=== PATIENT | female | born 1950 | race Caucasian/White ===

== ENCOUNTER 2020-08-16 13:18 | Outpatient (REF) | payer MEDICARE, SELFPAY | END 2020-08-16 13:19 | disposition home or self-care (01) | LOC: HO.LAB 13:18 | PROVIDERS: Visit Provider Internal Medicine | DX: Z20.828 Contact with and (suspected) exposure to other viral communicable diseases (principal) | CPT/HCPCS: 87635 ==

== ENCOUNTER 2021-01-21 08:36 | Outpatient (REF) | payer MEDICARE, SELFPAY ==
[2021-01-21 11:28] LABS: Hematocrit 39.1 % (37-47); Mean Corpuscular HGB Conc 33.2 g/dl (31.0-35.0); Mean Corpuscular Hemoglobin 30.3 pg (27.0-33.0); Mean Corpuscular Volume 91.1 fL (80-98); Mean Platelet Volume 10.2 fL (9.4-12.3); Platelet Count 200 X10*3/uL (160-400); Red Blood Count 4.29 X10*6/uL (4.20-5.50); White Blood Count 2.7 X10*3/uL (4.8-10.8)
[2021-01-21 11:50] LABS: Glucose Urine UA NEG (NEG); Leukocyte Esterase Urine NEG (NEG); Nitrite Urine NEG (NEG); Urine Blood NEG (NEG); Urine Ketones NEG (NEG); Urine Protein NEG (NEG-TRACE)
[2021-01-21 11:52] LABS: Appearance Urine CLEAR; Color Urine YELLOW
[2021-01-21 12:11] LABS: RBC Urine 0 /HPF (0); Squamous Epithelial Cell Urine 1+ /LPF; WBC Urine 0-2 /HPF (0-4)
[2021-01-21 12:37] LABS: Alanine Aminotransferase 16 U/L (0-31); Albumin Level 4.5 g/dL (3.5-5.0); Alkaline Phosphatase 71 U/L (39-117); Anion Gap 17 (12-20); Aspartate Amino Transferase 19 U/L (5-31); Bilirubin Total 0.6 mg/dL (0.0-1.0); Blood Urea Nitrogen 8 mg/dL (9-16); Calcium 8.7 mg/dL (8.4-10.2); Carbon Dioxide 24 mmol/L (22-29); Chloride 104 mmol/L (96-108); Cholesterol 178 mg/dL; Estimated Glomerular Filt Rate > 60; Glucose Fasting 100 mg/dL (60-99); HDL Cholesterol 76 mg/dL; LDL Cholesterol Calculated 80 mg/dl; Potassium 3.5 mmol/L (3.3-5.1); Sodium 141 mmol/L (135-145); Triglycerides 111 mg/dL
== END 2021-01-21 08:37 | disposition home or self-care (01) ==
LOC: HO.HMGCLDS 08:36
PROVIDERS: PCP Internal Medicine; Visit Provider Internal Medicine
DX: I10 Essential (primary) hypertension (principal); E78.5 Hyperlipidemia, unspecified
CPT/HCPCS: 36415; 80053; 80061; 81001; 84443; 85027

== ENCOUNTER 2021-07-29 09:38 | Outpatient (REF) | payer MEDICARE, SELFPAY ==
[2021-07-29 11:52] LABS: MANUAL DIFF FLAG NO
[2021-07-29 12:00] LABS: Eosinophils Absolute Auto 0.3 X10*3/uL (0.0-0.4); Eosinophils Percent Auto 6.4 % (0-4); Hematocrit 39.3 % (37-47); Hemoglobin 13.1 g/dl (12.0-16.0); Imm Gran Abs Auto 0.01 X10*3/uL (0.00-0.03); Imm Gran Pct Auto 0.3 % (0.0-0.4); Lymphocytes Absolute Auto 1.2 X10*3/uL (1.2-4.9); Lymphocytes Percent Auto 31.5 % (20-40); Mean Corpuscular HGB Conc 33.3 g/dl (31.0-35.0); Mean Corpuscular Hemoglobin 29.9 pg (27.0-33.0); Mean Corpuscular Volume 89.7 fL (80-98); Mean Platelet Volume 9.8 fL (9.4-12.3); Monocytes Absolute Auto 0.4 X10*3/uL (0.1-1.2); Monocytes Percent Auto 11.3 % (2-11); Neutrophils Absolute Auto 1.9 X10*3/uL (2.0-8.3); Neutrophils Percent Auto 49.5 % (45-73); Platelet Count 262 X10*3/uL (160-400); Red Blood Count 4.38 X10*6/uL (4.20-5.50); Red Cell Distribution Width 12.5 % (11.0-16.0); White Blood Count 3.9 X10*3/uL (4.8-10.8)
== END 2021-07-29 09:39 | disposition home or self-care (01) ==
LOC: HO.HMGCLDS 09:38
PROVIDERS: PCP Internal Medicine; Visit Provider Internal Medicine
DX: E78.5 Hyperlipidemia, unspecified (principal); I10 Essential (primary) hypertension; D70.9 Neutropenia, unspecified
CPT/HCPCS: 36415; 85025

== ENCOUNTER 2022-01-09 08:37 | Outpatient (REF) | payer MEDICARE, SELFPAY ==
--- NOTE | ~2022-01-09 | MM_ITS ---
EXAMINATION: BONE DENSITOMETRY CLINICAL INDICATION: Asymptomatic menopausal state. COMPARISON: Previous BD dated 05/31/2012 and baseline BD dated 06/24/2009. TECHNIQUE: Using a [employer] DXA System (software version: 13.1) manufactured by [employer], dual-energy x-ray absorptiometry was performed of the lumbar spine and left hip. The images are of good technical quality. Summary results are attached. FINDINGS: AP SPINE L1-L4: Current: BMD 0.962 g/cm2, Z-score -0.2, T-score -1.8, osteopenia, 11.5% decrease from previous, 11.4% decrease from baseline (<5% change is not significant). Prior: BMD 1.087 g/cm2. Baseline: BMD 1.086 g/cm2. LEFT FEMUR, NECK: Current: BMD 0.870 g/cm2, Z-score 0.6, T-score -1.2, osteopenia. Prior: BMD 1.000 g/cm2. Baseline: BMD 1.097 g/cm2. LEFT FEMUR, TOTAL: Current: BMD 0.926 g/cm2, Z-score 0.9, T-score -0.7, normal, 9.9% decrease from previous, 14.3% decrease from baseline (<5% change is not significant). Prior: BMD 1.028 g/cm2. Baseline: BMD 1.081 g/cm2. IDENTIFIED RISK FACTORS: Height loss. Secondary osteoporosis (early menopause). Hysterectomy. Bilateral oophorectomy. HISTORY OF FRACTURE: None listed. MEDICATIONS: Calcium supplement and/or multivitamin. Vitamin D. MM/XR DEXA axial skeleton IMPRESSION: 1. DIAGNOSIS: Osteopenia based on the lowest T-score value of -1.8 in the lumbar spine applying World Health Organization criteria. 2. 10-YEAR FRACTURE RISK PREDICTION, FRAX: Major osteoporotic fracture (clinical spine, forearm, hip or shoulder) 10.1%. Hip fracture 1.5%. 3. Treatment Recommendations: NOF guidelines recommend consideration for treatment in postmenopausal women and men age 50 and older presenting with the following: -A hip or vertebral (clinical or morphometric) fracture. -T-score less than or equal to -2.5 at the femoral neck or spine after appropriate evaluation to exclude secondary causes. -Low bone mass at the hip or spine and a 10-year fracture probability by FRAX of greater than or equal to 3% for hip fracture or greater than or equal to 20% for major osteoporotic fracture based on the [place] adapted WHO algorithm. 4. Other Recommendations: All treatment decisions require clinical judgment and consideration of individual patient factors, including patient preferences, comorbidities, previous drug use, risk factors not captured in the FRAX model (e.g. frailty, falls, vitamin D deficiency, increased bone turnover, interval significant decline in bone density) and possible under or overestimation of fracture risk by FRAX. Additional medical evaluation for secondary cause of low bone mineral density may be appropriate. FUTURE SCAN RECOMMENDATION: People with diagnosed cases of osteoporosis or at high risk for fracture should have regular bone mineral density tests. For patients eligible for Medicare, routine testing is allowed once every 2 years. The testing frequency can be increased to one year for patients who have rapidly progressing disease, those who are receiving or discontinuing medical therapy to restore bone mass, or have additional risk factors.
== END 2022-01-09 08:38 | disposition home or self-care (01) ==
LOC: HO.MAMMO 08:37
PROVIDERS: PCP Internal Medicine; Visit Provider Internal Medicine
DX: Z13.820 Encounter for screening for osteoporosis (principal); Z78.0 Asymptomatic menopausal state; D70.9 Neutropenia, unspecified; E78.5 Hyperlipidemia, unspecified; I10 Essential (primary) hypertension
CPT/HCPCS: 77080

== ENCOUNTER 2022-01-22 10:38 | Outpatient (REF) | payer MEDICARE, SELFPAY ==
[2022-01-22 14:08] LABS: Hematocrit 39.6 % (37.0-47.0); Hemoglobin 13.1 g/dl (12.0-16.0); Mean Corpuscular HGB Conc 33.1 g/dl (31.0-35.0); Mean Corpuscular Hemoglobin 29.7 pg (27.0-33.0); Mean Corpuscular Volume 89.8 fL (80.0-98.0); Mean Platelet Volume 9.9 fL (9.4-12.3); Platelet Count 269 X10*3/uL (160-400); Red Blood Count 4.41 X10*6/uL (4.20-5.50); Red Cell Distribution Width 12.5 % (11.0-16.0); White Blood Count 3.7 X10*3/uL (4.8-10.8)
[2022-01-22 14:22] LABS: Alanine Aminotransferase 23 U/L (0-31); Albumin Level 4.5 g/dL (3.5-5.0); Alkaline Phosphatase 67 U/L (39-117); Anion Gap 10 (12-20); Aspartate Amino Transferase 19 U/L (5-31); Bilirubin Total 0.4 mg/dL (0.0-1.0); Blood Urea Nitrogen 9 mg/dL (9-16); Carbon Dioxide 28 mmol/L (22-29); Chloride 104 mmol/L (96-108); Cholesterol 186 mg/dL; Estimated Glomerular Filt Rate > 60; Glucose Fasting 89 mg/dL (60-99); HDL Cholesterol 68 mg/dL; LDL Cholesterol Calculated 98 mg/dl; Potassium 4.1 mmol/L (3.3-5.1); Sodium 138 mmol/L (135-145); Total Protein 7.1 g/dL (6.5-8.0); Triglycerides 101 mg/dL
== END 2022-01-22 10:39 | disposition home or self-care (01) ==
LOC: HO.HMGCLDS 10:38
PROVIDERS: PCP Internal Medicine; Visit Provider Internal Medicine
DX: D70.9 Neutropenia, unspecified (principal); E78.5 Hyperlipidemia, unspecified; I10 Essential (primary) hypertension; Z78.0 Asymptomatic menopausal state
CPT/HCPCS: 36415; 80053; 80061; 85027

== ENCOUNTER 2022-02-25 | Outpatient (REF) | payer MEDICARE, SELFPAY | END 2022-02-25 00:01 | disposition home or self-care (01) | LOC: HO.LNP | PROVIDERS: Visit Provider Internal Medicine Gastroenterology | DX: R19.8 Other specified symptoms and signs involving the digestive system and abdomen (principal) | CPT/HCPCS: 87045; 87046; 87177; 87209 ==

== ENCOUNTER 2022-02-26 09:22 | Outpatient (REF) | payer MEDICARE, SELFPAY ==
[2022-02-26 11:03] LABS: CDiff Gene PCR POSITIVE (Negative)
[2022-02-26 11:52] LABS: Leukocytes Stool Qualitative FEW: < 2/OIF (NEGATIVE)
[2022-02-26 12:36] LABS: CDiff Toxin Negative (Negative)
[2022-02-26 12:37] LABS: CDIFF Internal ctrl Dots and bkg OK (V)
== END 2022-02-26 09:23 | disposition home or self-care (01) ==
LOC: HO.LNP 09:22
PROVIDERS: Visit Provider Internal Medicine Gastroenterology
DX: R19.8 Other specified symptoms and signs involving the digestive system and abdomen (principal)
CPT/HCPCS: 87324; 87493; 89055

== ENCOUNTER 2022-03-17 11:40 | Outpatient (REF) | payer MEDICARE, SELFPAY ==
[2022-03-17 13:51] LABS: Appearance Urine HAZY; Color Urine STRAW; Glucose Urine UA NEG (NEG); Leukocyte Esterase Urine 3+ (NEG); Nitrite Urine NEG (NEG); PH 5.5 (5.0-8.0); Specific Gravity - Urine <= 1.005 (1.005-1.025); UACC Culture Trigger YES; Urine Blood 3+ (NEG); Urine Ketones NEG (NEG); Urine Protein TRACE MG/DL (NEG-TRACE)
[2022-03-17 14:00] LABS: Bacteria Urine 1+ /LPF; Squamous Epithelial Cell Urine TRACE /LPF
== END 2022-03-17 11:41 | disposition home or self-care (01) ==
LOC: HO.HMGCLDS 11:40
PROVIDERS: Visit Provider Internal Medicine
DX: R30.0 Dysuria (principal); I10 Essential (primary) hypertension; E78.5 Hyperlipidemia, unspecified; M85.80 Other specified disorders of bone density and structure, unspecified site; E55.9 Vitamin D deficiency, unspecified
CPT/HCPCS: 81001; 87086

== ENCOUNTER 2022-04-24 15:59 | Outpatient (REF) | payer MEDICARE, SELFPAY ==
[2022-04-25 12:17] LABS: Leukocytes Stool Qualitative NEGATIVE (NEGATIVE)
[2022-04-25 14:16] LABS: Adenovirus F 40/41 Not Detected (Not Detect.); Astrovirus Not Detected (Not Detect.); Campylobacter Not Detected (Not Detect.); Cryptosporidium Not Detected (Not Detect.); Cyclospora cayetanensis Not Detected (Not Detect.); E. coli EAEC Not Detected (Not Detect.); E. coli EPEC Not Detected (Not Detect.); E. coli ETEC Not Detected (Not Detect.); E. coli STEC Not Detected (Not Detect.); Entamoeba histolytica Not Detected (Not Detect.); Giardia lamblia Not Detected (Not Detect.); Norovirus GI/GII Not Detected (Not Detect.); Plesiomonas shigelloides Not Detected (Not Detect.); Rotavirus A Not Detected (Not Detect.); Salmonella Not Detected (Not Detect.); Sapovirus Not Detected (Not Detect.); Shigella sp./EIEC Not Detected (Not Detect.); Vibrio Not Detected (Not Detect.); Vibrio Cholerae Not Detected (Not Detect.); Yersinia enterocolitica Not Detected (Not Detect.)
== END 2022-04-24 16:00 | disposition home or self-care (01) ==
LOC: HO.LAB 15:59
PROVIDERS: PCP Internal Medicine; Visit Provider Internal Medicine Gastroenterology
DX: R19.7 Diarrhea, unspecified (principal)
CPT/HCPCS: 36415; 87493; 87507; 89055

== ENCOUNTER 2022-05-01 11:21 | Outpatient (REF) | payer MEDICARE, SELFPAY ==
[2022-05-01 12:16] LABS: Leukocytes Stool Qualitative NEGATIVE (NEGATIVE)
[2022-05-01 14:16] LABS: Adenovirus F 40/41 Not Detected (Not Detect.); Astrovirus Not Detected (Not Detect.); Campylobacter Not Detected (Not Detect.); Cryptosporidium Not Detected (Not Detect.); Cyclospora cayetanensis Not Detected (Not Detect.); E. coli EAEC Not Detected (Not Detect.); E. coli EPEC Not Detected (Not Detect.); E. coli ETEC Not Detected (Not Detect.); E. coli STEC Not Detected (Not Detect.); Entamoeba histolytica Not Detected (Not Detect.); Giardia lamblia Not Detected (Not Detect.); Norovirus GI/GII Not Detected (Not Detect.); Plesiomonas shigelloides Not Detected (Not Detect.); Rotavirus A Not Detected (Not Detect.); Salmonella Not Detected (Not Detect.); Sapovirus Not Detected (Not Detect.); Shigella sp./EIEC Not Detected (Not Detect.); Vibrio Not Detected (Not Detect.); Vibrio Cholerae Not Detected (Not Detect.); Yersinia enterocolitica Not Detected (Not Detect.)
== END 2022-05-01 11:22 | disposition home or self-care (01) ==
LOC: HO.LNP 11:21
PROVIDERS: Visit Provider Internal Medicine Gastroenterology
DX: R19.7 Diarrhea, unspecified (principal)
CPT/HCPCS: 87507; 89055

== ENCOUNTER 2022-07-28 09:12 | Outpatient (REF) | payer MEDICARE, SELFPAY ==
[2022-07-28 11:23] LABS: Appearance Urine Clear; Color Urine Yellow; Glucose Urine UA Negative (Negative); Leukocyte Esterase Urine Negative (Negative); Nitrite Urine Negative (Negative); Specific Gravity - Urine <= 1.005 (1.005-1.025); Urine Blood Negative (Negative); Urine Ketones Negative (Negative); Urine Protein Negative (Neg-Trace)
[2022-07-28 12:19] LABS: Alanine Aminotransferase 13 U/L (0-31); Albumin Level 4.4 g/dL (3.5-5.0); Alkaline Phosphatase 75 U/L (39-117); Anion Gap 19 (12-20); Aspartate Amino Transferase 18 U/L (5-31); Bilirubin Total 0.5 mg/dL (0.0-1.0); Blood Urea Nitrogen 11 mg/dL (9-16); Calcium 8.8 mg/dL (8.4-10.2); Carbon Dioxide 22 mmol/L (22-29); Chloride 103 mmol/L (96-108); Estimated Glomerular Filt Rate > 60; Glucose Fasting 98 mg/dL (60-99); Potassium 4.7 mmol/L (3.3-5.1); Sodium 139 mmol/L (135-145)
[2022-07-28 12:22] LABS: Vitamin D 25-OH Total 40.3 ng/mL (>30)
== END 2022-07-28 09:13 | disposition home or self-care (01) ==
LOC: HO.HMGCLDS 09:12
PROVIDERS: PCP Internal Medicine; Visit Provider Internal Medicine
DX: E55.9 Vitamin D deficiency, unspecified (principal); E78.5 Hyperlipidemia, unspecified; I10 Essential (primary) hypertension; R30.0 Dysuria; M85.80 Other specified disorders of bone density and structure, unspecified site
CPT/HCPCS: 36415; 80053; 81003; 82306

== ENCOUNTER 2022-10-15 10:22 | Emergency (ER) | payer MEDICARE, SELFPAY ==
--- NOTE | ~2022-10-15 | CT_ITS ---
EXAMINATION: CT ABDOMEN AND PELVIS WITHOUT CONTRAST CLINICAL INFORMATION: Left lower quadrant pain with diarrhea COMPARISON: CTA: Mammography 02/22/2019 TECHNIQUE: Multidetector volumetric imaging was performed from the superior aspect of the liver through the pubic symphysis. Sagittal and coronal reformatted images were obtained on the technologist's workstation. This CT examination was performed using dose optimization techniques as appropriate, variously including the following: *Automated exposure control *Adjustment of mA and/or kV according to patient size (this includes techniques or standardized protocols for targeted exams where dose is matched to indication/reason for exam; i.e. extremities or head) *Use of iterative reconstruction technique DLP: 468 mGy-cm FINDINGS: LUNG BASES: The visualized lung bases are unremarkable. LIVER, GALLBLADDER, AND BILIARY TREE: The liver is normal in size, shape, and attenuation. No focal hepatic lesion or biliary ductal dilatation is present. Status post cholecystectomy. PANCREAS: Unremarkable. SPLEEN: Again noted is a large calcified splenic granuloma. ADRENAL GLANDS: Unremarkable. KIDNEYS AND URETERS: The kidneys are normal in size, shape, and attenuation. 5.8 cm benign Bosniak class I cyst is again noted in the upper pole right kidney. This needs no additional imaging or follow-up. No hydronephrosis, hydroureter, or calculi seen. No perinephric stranding. BLADDER: Unremarkable. GASTROINTESTINAL TRACT: There is mucosal thickening of the rectosigmoid with mild inflammatory changes surrounding the pericolonic fat which is a new finding when compared to the prior study. Findings are suggestive of colitis. A small bowel anastomosis is present in the quadrant. The small and large bowel are otherwise unremarkable. The appendix is unremarkable. ABDOMINAL WALL: No significant hernia is appreciated. Reveal a midline abdominal scar. LYMPH NODES: Shotty retroperitoneal lymph nodes are present without adenopathy. VASCULAR: Unremarkable. PELVIC VISCERA: Surgically removed OSSEOUS STRUCTURES: Compression fracture/small lymph node superior endplate of L1. Mild degenerative changes present throughout the spine. CT/CT abdomen pelvis wo IV con IMPRESSION: 1. Findings are suggestive of colitis involving the rectosigmoid. 2. Other incidental findings as described above. Fleischner guidelines were followed.
[2022-10-15 11:01] VITALS: BP 129/72; PULSE 117; RESP 20; TEMP 37.1; O2SAT 97; BMI 25.7
[2022-10-15 11:30] LABS: Basophils Percent Auto 0.2 % (0-2); Eosinophils Absolute Auto 0.1 X10*3/uL (0.0-0.4); Eosinophils Percent Auto 0.6 % (0-4); Hematocrit 36.8 % (37.0-47.0); Hemoglobin 12.3 g/dl (12.0-16.0); Imm Gran Abs Auto 0.04 X10*3/uL (0.00-0.03); Imm Gran Pct Auto 0.3 % (0.0-0.4); Lymphocytes Absolute Auto 0.7 X10*3/uL (1.2-4.9); Lymphocytes Percent Auto 4.9 % (20-40); MANUAL DIFF FLAG SCAN; Mean Corpuscular HGB Conc 33.4 g/dl (31.0-35.0); Mean Corpuscular Hemoglobin 29.1 pg (27.0-33.0); Mean Corpuscular Volume 87.2 fL (80.0-98.0); Mean Platelet Volume 9.4 fL (9.4-12.3); Monocytes Absolute Auto 1.8 X10*3/uL (0.1-1.2); Monocytes Percent Auto 13.3 % (2-11); Neutrophils Percent Auto 80.7 % (45-73); Platelet Count 308 X10*3/uL (160-400); Red Blood Count 4.22 X10*6/uL (4.20-5.50); Red Cell Distribution Width 12.9 % (11.0-16.0); SCAN SMEAR FLAG 1; White Blood Count 13.6 X10*3/uL (4.8-10.8)
[2022-10-15 11:47] LABS: Anion Gap 12 (12-20); Blood Urea Nitrogen 9 mg/dL (9-16); Calcium 8.9 mg/dL (8.4-10.2); Carbon Dioxide 26 mmol/L (22-29); Chloride 103 mmol/L (96-108); Creatinine Clr Calc Pharmacy 72.5; Estimated Glomerular Filt Rate > 60; Glucose Random 138 mg/dL (60-115); Potassium 3.5 mmol/L (3.3-5.1); Sodium 137 mmol/L (135-145)
[2022-10-15 12:06] LABS: SLIDE REVIEW VERIFIED
[2022-10-15 12:09] VITALS: BP 119/58; PULSE 115; RESP 20; TEMP 37.3; O2SAT 99
[2022-10-15 12:25] LABS: Appearance Urine Clear; Color Urine Dark Yellow; Glucose Urine UA Negative (Negative); Leukocyte Esterase Urine Trace (Negative); Nitrite Urine Negative (Negative); Specific Gravity - Urine 1.025 (1.005-1.025); UMIC TRIGGER UACC YES; Urine Blood Negative (Negative); Urine Ketones Trace mg/dL (Negative); Urine Protein 100 (2+) mg/dL (Neg-Trace)
[2022-10-15 12:28] LABS: Bacteria Urine None Seen (None Seen); Hyaline Casts Urine 0-2 /LPF (0-2); RBC Urine 0-2 /HPF (0-2); WBC Urine 0-5 /HPF (0-5)
--- NOTE | 2022-10-15 13:21 | ED_ITS ---
HPI - Abdominal Pain General Chief Complaint: Abdominal Pain <Mariza Sanabria NP - Last Filed: 10/15/22 18:07> Stated Complaint: ibs, bowel problems/ pain. sent by doctor <Mariza Sanabria NP - Last Filed: 10/15/22 18:07> Time Seen by Provider: 10/15/22 11:50 <Mariza Sanabria NP - Last Filed: 10/15/22 18:07> Source: patient <Mariza Sanabria NP - Last Filed: 10/15/22 18:07> Mode of arrival: ambulatory <Mariza Sanabria NP - Last Filed: 10/15/22 18:07> Limitations: no limitations <Mariza Sanabria NP - Last Filed: 10/15/22 18:07> History of Present Illness HPI narrative: 72-year-old female with a past medical history of GERD, hypertension, hyperlipidemia, neutropenia, and C diff colitis presents to the emergency department today with complaints of left lower quadrant abdominal pain and mucousy diarrhea since before . Today she reports seeing blood on the toilet paper when wiping. She has previously seen her GI provider regarding this and has been using cortisone ointment nightly for treatment of possible hemorrhoid. <Mariza Sanabria NP - Last Filed: 10/15/22 18:07> Related Data Home Medications: Home Medications Medication Instructions Recorded Confirmed cholecalciferol (vitamin D3) 25 25 mcg PO DAILY 01/21/21 07/30/22 mcg (1,000 unit) capsule cetirizine 10 mg capsule (Zyrtec) 10 mg PO DAILY PRN 01/28/22 07/30/22 fluticasone furoate 27.5 1 spray intranasal DAILY PRN 01/28/22 07/30/22 mcg/actuation nasal allergy symptoms spray,suspension (Flonase Sensimist) glucosamine 750 [id number] 2 tab PO DAILY 01/28/22 07/30/22 no1 644 mg-C 30 mg-mj 1 mg tablet (Osteo Bi-Flex Triple Strength) magnesium 250 mg tablet 250 mg PO DAILY 01/28/22 07/30/22 prednisolone acetate 1 % eye 1 drp ophthalmic (eye) .QD 01/28/22 01/28/22 drops,suspension Previous Rx's Medication Instructions Recorded olmesartan 20 mg tablet 20 mg PO DAILY #90 tabs 01/26/22 simvastatin 20 mg tablet 20 mg PO QPM #90 caps 06/09/22 famotidine 20 mg tablet (Pepcid AC) 20 mg PO BEDTIME #90 tabs 08/11/22 vancomycin 125 mg capsule 125 mg PO QID 10 days #40 caps 10/17/22 <Mariza Sanabria NP - Last Filed: 10/15/22 18:07> Allergies/Adverse Reactions: Allergies Allergy/AdvReac Type Severity Reaction Status Date / Time Sulfa (Sulfonamide Allergy Mild RASH Verified 07/30/22 08:07 Antibiotics) [SULFA (SULFONAMIDE ANTIBIOTICS)] clindamycin AdvReac Intermediate Diarrhea Verified 07/30/22 08:07 amlodipine AdvReac Unknown edema Verified 07/30/22 08:07 ENVIRONMENTAL Allergy Intermediate ITCHY Uncoded 07/30/22 08:07 EYES/SINUS SULFA Allergy Unknown unknown Uncoded 07/30/22 08:07 <Mariza Sanabria UNIFORM ATTENDANT - Last Filed: 10/15/22 18:07> [facility] Past Medical History Medical History: Medical History Annual physical exam GERD (gastroesophageal reflux disease) History of mammogram HTN (hypertension) Hyperlipidemia Neutropenia Osteopenia Postmenopausal Syncope Vitamin D deficiency <Mariza Sanabria NP - Last Filed: 10/15/22 18:07> Surgical History: Surgical History H/O colonoscopy S/P ELIZABETH-BSO Status post corneal transplant <Mariza Sanabria NP - Last Filed: 10/15/22 18:07> Family History Family History: Family History Father Cancer Mother CHF (congestive heart failure) CVD (cardiovascular disease) <Mariza Sanabria NP - Last Filed: 10/15/22 18:07> Social History Social History: Social History Housing: House Alcohol intake: current Alcohol intake frequency: holidays/special occasions only Alcohol type: wine and hard liquor Patient Tobacco Use Status: Never used Tobacco Smoked in Last 30 Days: No e-Cigarette/Vaping Use: Never Used Advance Directives: No Current occupational status: retired Cognitive needs: No Hearing needs: No Vision needs: Yes <Mariza Sanabria NP - Last Filed: 10/15/22 18:07> Physical Exam ED Vital Signs: Vital Signs - 24 hr 10/15/22 11:01 10/15/22 12:09 10/15/22 14:49 Temperature 98.8 F 99.1 F 98.8 F Pulse Rate 117 H 115 H 97 Respiratory Rate 20 20 16 Blood Pressure 129/72 119/58 L 94/46 L Pulse Oximetry 97 99 97 Oxygen Delivery Method Room Air Room Air Room Air 10/15/22 17:37 Temperature 97.0 F Pulse Rate 95 Respiratory Rate 16 Blood Pressure 111/55 L Pulse Oximetry 96 Oxygen Delivery Method Room Air BMI result Body Mass Index 25.7 <Mariza Sanabria NP - Last Filed: 10/15/22 18:07> Vital Signs - 24 hr 10/15/22 11:01 10/15/22 12:09 10/15/22 14:49 Temperature 98.8 F 99.1 F 98.8 F Pulse Rate 117 H 115 H 97 Respiratory Rate 20 20 16 Blood Pressure 129/72 119/58 L 94/46 L Pulse Oximetry 97 99 97 Oxygen Delivery Method Room Air Room Air Room Air 10/15/22 17:37 Temperature 97.0 F Pulse Rate 95 Respiratory Rate 16 Blood Pressure 111/55 L Pulse Oximetry 96 Oxygen Delivery Method Room Air BMI result Body Mass Index 25.7 <Amy Call NP - Last Filed: 10/17/22 11:22> Course Course Course Narrative: 1455: Pt bp 94/46. 1 L NS bolus to be given. Pt A&O x 4. <Mariza Sanabria NP - Last Filed: 10/15/22 18:07> Reevaluation(s) Reevaluation #1: 10/17-1115- this is a 72-year-old female with a history of C diff colitis treated and in February of 2022 with 10 days of vancomycin. Patient has reported over the last 1 month diarrhea with stools every hour and some left lower quadrant abdominal pain over the last few days. Patient has been in touch with her progressive care nurse Dr. Keys and was referred into the emergency room on September 15 for labs, stool studies and CT scan. Patient had a CT scan which showed rectosigmoid colitis. She had a mild leukocytosis of 13.6. Her chemistries were unremarkable. All stool studies were negative with the exception of C diff gene PCR which was positive. Her C diff toxin was negative. I called the patient. She reports her abdominal pain is improved but she is still having frequent mucousy stools daily. She did call Dr. Keys office yesterday and is waiting for a call back for follow-up. I did attempt to reach out to Dr. Keys office today. However it was recommended I speak to the on-call progressive care nurse Dr. Veronika clements. I did speak to her and she recommended treatment of the patient was symptomatic and also consult thing infectious disease as this may be a reoccurrence. I spoke to Dr. Dorsey from Infectious Disease. She recommended treating the patient. We did discuss Fidaxomocin as this may be recurrence but she felt this would be difficult to obtain for the patient as it is a holiday weekend. Therefore she recommended treating with 10 days of vancomycin. I spoke to the patient at length. I sent over a prescription for vancomycin 125 mg 4 times daily for 10 days. She plans on calling Dr. Berman office on Wednesday for follow-up appointment. I did recommend patient return for any worsening pain, vomiting, fever, feeling dehydrated. Patient agreeable plan of care <Amy Call NP - Last Filed: 10/17/22 11:22> Medical Decision Making Medical Decision Making [facility] [place] Narrative: 72-year-old female with a past medical history of GERD, hypertension, hyperlipidemia, neutropenia, and C diff colitis presents to the emergency department today with complaints of left lower quadrant abdominal pain and mucousy diarrhea since before . CT abdomen/pelvis with findings suggestive of colitis involving the rectosigmoid, compression fractures/small lymph nodes superior endplate of L1 with mild degenerative changes present throughout the spine, shotty retroperitoneal lymph nodes are present without adenopathy. Blood work remarkable for white count elevated at 13.6. Stool GI panel negative. Stool sample collected and pending serology results for c-diff. Will contact patient with results. 1 L normal saline bolus given for hypotension most likely due to frequent bowel movements good effect in normalized blood pressure with last blood pressure 111/55. Patient continues to be awake and alert x4. Patient is a for discharge with plan to follow-up with gastroenterology as she is already followed by the service. HPI, PE, diagnostics, and plan discussed with patient and family with no unanswered questions at this time. Educated to return to the emergency department with worsening abdominal pain, bloody stools, vomiting, fever, or any other concerning emergent symptoms. Recommended follow-up the primary care provider and progressive care nurse for further treatment and management. <Mariza Sanabria NP - Last Filed: 10/15/22 18:07> Lab Data MDM Lab Attestation statement: I reviewed the patient's lab results. <Mariza Sanabria NP - Last Filed: 10/15/22 18:07> Result Diagrams: : 10/15/22 11:13 10/15/22 11:13 <Mariza Sanabria NP - Last Filed: 10/15/22 18:07> Labs: Lab Results 10/15/22 10/15/22 10/15/22 Range/Units 11:13 11:13 12:13 WBC 13.6 H (4.8-10.8) X10*3/uL RBC 4.22 (4.20-5.50) X10*6/uL Hgb 12.3 (12.0-16.0) g/dl Hct 36.8 L (37.0-47.0) % MCV 87.2 (80.0-98.0) fL MCH 29.1 (27.0-33.0) pg MCHC 33.4 (31.0-35.0) g/dl RDW 12.9 (11.0-16.0) % Plt Count 308 (160-400) X10*3/uL MPV 9.4 (9.4-12.3) fL Immature Gran % (Auto) 0.3 (0.0-0.4) % Neut % (Auto) 80.7 H (45-73) % Lymph % (Auto) 4.9 L (20-40) % [place] % (Auto) 13.3 H (2-11) % Eos % (Auto) 0.6 (0-4) % Baso % (Auto) 0.2 (0-2) % Lymph # (Auto) 0.7 L (1.2-4.9) X10*3/uL [place] # (Auto) 1.8 H (0.1-1.2) X10*3/uL Eos # (Auto) 0.1 (0.0-0.4) X10*3/uL Baso # (Auto) 0.0 (0.0-0.2) X10*3/uL Abs Immat Gran (auto) 0.04 H (0.00-0.03) X10*3/uL Absolute Neuts (auto) 11.0 H (2.0-8.3) x10*3/uL Absolute Nucleated RBC 0.000 (0.0-0.012) X10*3/uL Nucleated RBC % (auto) 0.0 (0.0-0.2) /100WBC Smear Tech's Comments VERIFIED Sodium 137 (135-145) mmol/L Potassium 3.5 D (3.3-5.1) mmol/L Chloride 103 (96-108) mmol/L Carbon Dioxide 26 (22-29) mmol/L Anion Gap 12 (12-20) BUN 9 (9-16) mg/dL Creatinine 0.62 (0.5-1.4) mg/dL Estim Creat Clear Calc 72.5 Estimated GFR > 60 Random Glucose 138 H (60-115) mg/dL Calcium 8.9 (8.4-10.2) mg/dL Urine Color Dark Yellow Urine Appearance Clear Urine pH 6.0 (5.0-9.0) Ur Specific [place] 1.025 (1.005-1.025) Urine Protein 100 (2+) H (Neg-Trace) mg/dL Urine Glucose (UA) Negative (Negative) mg/dL Urine Ketones Trace (Negative) mg/dL Urine Blood Negative (Negative) Urine Nitrite Negative (Negative) Ur Leukocyte Esterase Trace H (Negative) Urine RBC 0-2 (0-2) /HPF Urine WBC 0-5 (0-5) /HPF Ur Squamous Epith Cells 3-5 (0-2) /HPF Urine Bacteria None Seen (None Seen) Hyaline Casts 0-2 (0-2) /LPF Stl C. cayetanensis PCR (Not Detect.) Stool Rotavirus A PCR (Not Detect.) Stl Adenov F 40/41 PCR (Not Detect.) Stool Astrovirus (PCR) (Not Detect.) Stool Campylobacter PCR (Not Detect.) Stool Cryptosporidium PCR (Not Detect.) Stl Sh Tox Pr E STEC PCR (Not Detect.) Stool E coli O157 PCR (Not Detect.) Stl Enterotoxigenic E PCR (Not Detect.) Stool EPEC (PCR) (Not Detect.) Stool EAEC (PCR) (Not Detect.) Stl E. histolytica PCR (Not Detect.) Stool Giardia Lamblia PCR (Not Detect.) Stl P. shigelloides PCR (Not Detect.) Stool Salmonella PCR (Not Detect.) Stool Sapovirus (PCR) (Not Detect.) Stl Shigella/EIEC PCR (Not Detect.) St Y.enterocolitica PCR (Not Detect.) Stool Vibrio (PCR) (Not Detect.) Stl Vibrio cholerae PCR (Not Detect.) Stl Norovirus GI/GII PCR (Not Detect.) C. difficile Tox B Gene (Negative) C. difficile Toxin A&B (Negative) C. difficile Interpret 10/15/22 10/15/22 Range/Units 13:33 19:19 WBC (4.8-10.8) X10*3/uL RBC (4.20-5.50) X10*6/uL Hgb (12.0-16.0) g/dl Hct (37.0-47.0) % MCV (80.0-98.0) fL MCH (27.0-33.0) pg MCHC (31.0-35.0) g/dl RDW (11.0-16.0) % Plt Count (160-400) X10*3/uL MPV (9.4-12.3) fL Immature Gran % (Auto) (0.0-0.4) % Neut % (Auto) (45-73) % Lymph % (Auto) (20-40) % [place] % (Auto) (2-11) % Eos % (Auto) (0-4) % Baso % (Auto) (0-2) % Lymph # (Auto) (1.2-4.9) X10*3/uL [place] # (Auto) (0.1-1.2) X10*3/uL Eos # (Auto) (0.0-0.4) X10*3/uL Baso # (Auto) (0.0-0.2) X10*3/uL Abs Immat Gran (auto) (0.00-0.03) X10*3/uL Absolute Neuts (auto) (2.0-8.3) x10*3/uL Absolute Nucleated RBC (0.0-0.012) X10*3/uL Nucleated RBC % (auto) (0.0-0.2) /100WBC Smear Tech's Comments Sodium (135-145) mmol/L Potassium (3.3-5.1) mmol/L Chloride (96-108) mmol/L Carbon Dioxide (22-29) mmol/L Anion Gap (12-20) BUN (9-16) mg/dL Creatinine (0.5-1.4) mg/dL Estim Creat Clear Calc Estimated GFR Random Glucose (60-115) mg/dL Calcium (8.4-10.2) mg/dL Urine Color Urine Appearance Urine pH (5.0-9.0) Ur Specific [place] (1.005-1.025) Urine Protein (Neg-Trace) mg/dL Urine Glucose (UA) (Negative) mg/dL Urine Ketones (Negative) mg/dL Urine Blood (Negative) Urine Nitrite (Negative) Ur Leukocyte Esterase (Negative) Urine RBC (0-2) /HPF Urine WBC (0-5) /HPF Ur Squamous Epith Cells (0-2) /HPF Urine Bacteria (None Seen) Hyaline Casts (0-2) /LPF Stl C. cayetanensis PCR Not Detected (Not Detect.) Stool Rotavirus A PCR Not Detected (Not Detect.) Stl Adenov F 40/41 PCR Not Detected (Not Detect.) Stool Astrovirus (PCR) Not Detected (Not Detect.) Stool Campylobacter PCR Not Detected (Not Detect.) Stool Cryptosporidium PCR Not Detected (Not Detect.) Stl Sh Tox Pr E STEC PCR Not Detected (Not Detect.) Stool E coli O157 PCR Not applicable (Not Detect.) Stl Enterotoxigenic E PCR Not Detected (Not Detect.) Stool EPEC (PCR) Not Detected (Not Detect.) Stool EAEC (PCR) Not Detected (Not Detect.) Stl E. histolytica PCR Not Detected (Not Detect.) Stool Giardia Lamblia PCR Not Detected (Not Detect.) Stl P. shigelloides PCR Not Detected (Not Detect.) Stool Salmonella PCR Not Detected (Not Detect.) Stool Sapovirus (PCR) Not Detected (Not Detect.) Stl Shigella/EIEC PCR Not Detected (Not Detect.) St Y.enterocolitica PCR Not Detected (Not Detect.) Stool Vibrio (PCR) Not Detected (Not Detect.) Stl Vibrio cholerae PCR Not Detected (Not Detect.) Stl Norovirus GI/GII PCR Not Detected (Not Detect.) C. difficile Tox B Gene POSITIVE A* (Negative) C. difficile Toxin A&B Negative (Negative) C. difficile Interpret SEE NOTE <Mariza Sanabria NP - Last Filed: 10/15/22 18:07> Lab Results 10/15/22 10/15/22 10/15/22 Range/Units 11:13 11:13 12:13 WBC 13.6 H (4.8-10.8) X10*3/uL RBC 4.22 (4.20-5.50) X10*6/uL Hgb 12.3 (12.0-16.0) g/dl Hct 36.8 L (37.0-47.0) % MCV 87.2 (80.0-98.0) fL MCH 29.1 (27.0-33.0) pg MCHC 33.4 (31.0-35.0) g/dl RDW 12.9 (11.0-16.0) % Plt Count 308 (160-400) X10*3/uL MPV 9.4 (9.4-12.3) fL Immature Gran % (Auto) 0.3 (0.0-0.4) % Neut % (Auto) 80.7 H (45-73) % Lymph % (Auto) 4.9 L (20-40) % [place] % (Auto) 13.3 H (2-11) % Eos % (Auto) 0.6 (0-4) % Baso % (Auto) 0.2 (0-2) % Lymph # (Auto) 0.7 L (1.2-4.9) X10*3/uL [place] # (Auto) 1.8 H (0.1-1.2) X10*3/uL Eos # (Auto) 0.1 (0.0-0.4) X10*3/uL Baso # (Auto) 0.0 (0.0-0.2) X10*3/uL Abs Immat Gran (auto) 0.04 H (0.00-0.03) X10*3/uL Absolute Neuts (auto) 11.0 H (2.0-8.3) x10*3/uL Absolute Nucleated RBC 0.000 (0.0-0.012) X10*3/uL Nucleated RBC % (auto) 0.0 (0.0-0.2) /100WBC Smear Tech's Comments VERIFIED Sodium 137 (135-145) mmol/L Potassium 3.5 D (3.3-5.1) mmol/L Chloride 103 (96-108) mmol/L Carbon Dioxide 26 (22-29) mmol/L Anion Gap 12 (12-20) BUN 9 (9-16) mg/dL Creatinine 0.62 (0.5-1.4) mg/dL Estim Creat Clear Calc 72.5 Estimated GFR > 60 Random Glucose 138 H (60-115) mg/dL Calcium 8.9 (8.4-10.2) mg/dL Urine Color Dark Yellow Urine Appearance Clear Urine pH 6.0 (5.0-9.0) Ur Specific [place] 1.025 (1.005-1.025) Urine Protein 100 (2+) H (Neg-Trace) mg/dL Urine Glucose (UA) Negative (Negative) mg/dL Urine Ketones Trace (Negative) mg/dL Urine Blood Negative (Negative) Urine Nitrite Negative (Negative) Ur Leukocyte Esterase Trace H (Negative) Urine RBC 0-2 (0-2) /HPF Urine WBC 0-5 (0-5) /HPF Ur Squamous Epith Cells 3-5 (0-2) /HPF Urine Bacteria None Seen (None Seen) Hyaline Casts 0-2 (0-2) /LPF Stl C. cayetanensis PCR (Not Detect.) Stool Rotavirus A PCR (Not Detect.) Stl Adenov F 40/41 PCR (Not Detect.) Stool Astrovirus (PCR) (Not Detect.) Stool Campylobacter PCR (Not Detect.) Stool Cryptosporidium PCR (Not Detect.) Stl Sh Tox Pr E STEC PCR (Not Detect.) Stool E coli O157 PCR (Not Detect.) Stl Enterotoxigenic E PCR (Not Detect.) Stool EPEC (PCR) (Not Detect.) Stool EAEC (PCR) (Not Detect.) Stl E. histolytica PCR (Not Detect.) Stool Giardia Lamblia PCR (Not Detect.) Stl P. shigelloides PCR (Not Detect.) Stool Salmonella PCR (Not Detect.) Stool Sapovirus (PCR) (Not Detect.) Stl Shigella/EIEC PCR (Not Detect.) St Y.enterocolitica PCR (Not Detect.) Stool Vibrio (PCR) (Not Detect.) Stl Vibrio cholerae PCR (Not Detect.) Stl Norovirus GI/GII PCR (Not Detect.) C. difficile Tox B Gene (Negative) C. difficile Toxin A&B (Negative) C. difficile Interpret 10/15/22 10/15/22 Range/Units 13:33 19:19 WBC (4.8-10.8) X10*3/uL RBC (4.20-5.50) X10*6/uL Hgb (12.0-16.0) g/dl Hct (37.0-47.0) % MCV (80.0-98.0) fL MCH (27.0-33.0) pg MCHC (31.0-35.0) g/dl RDW (11.0-16.0) % Plt Count (160-400) X10*3/uL MPV (9.4-12.3) fL Immature Gran % (Auto) (0.0-0.4) % Neut % (Auto) (45-73) % Lymph % (Auto) (20-40) % [place] % (Auto) (2-11) % Eos % (Auto) (0-4) % Baso % (Auto) (0-2) % Lymph # (Auto) (1.2-4.9) X10*3/uL [place] # (Auto) (0.1-1.2) X10*3/uL Eos # (Auto) (0.0-0.4) X10*3/uL Baso # (Auto) (0.0-0.2) X10*3/uL Abs Immat Gran (auto) (0.00-0.03) X10*3/uL Absolute Neuts (auto) (2.0-8.3) x10*3/uL Absolute Nucleated RBC (0.0-0.012) X10*3/uL Nucleated RBC % (auto) (0.0-0.2) /100WBC Smear Tech's Comments Sodium (135-145) mmol/L Potassium (3.3-5.1) mmol/L Chloride (96-108) mmol/L Carbon Dioxide (22-29) mmol/L Anion Gap (12-20) BUN (9-16) mg/dL Creatinine (0.5-1.4) mg/dL Estim Creat Clear Calc Estimated GFR Random Glucose (60-115) mg/dL Calcium (8.4-10.2) mg/dL Urine Color Urine Appearance Urine pH (5.0-9.0) Ur Specific [place] (1.005-1.025) Urine Protein (Neg-Trace) mg/dL Urine Glucose (UA) (Negative) mg/dL Urine Ketones (Negative) mg/dL Urine Blood (Negative) Urine Nitrite (Negative) Ur Leukocyte Esterase (Negative) Urine RBC (0-2) /HPF Urine WBC (0-5) /HPF Ur Squamous Epith Cells (0-2) /HPF Urine Bacteria (None Seen) Hyaline Casts (0-2) /LPF Stl C. cayetanensis PCR Not Detected (Not Detect.) Stool Rotavirus A PCR Not Detected (Not Detect.) Stl Adenov F 40/41 PCR Not Detected (Not Detect.) Stool Astrovirus (PCR) Not Detected (Not Detect.) Stool Campylobacter PCR Not Detected (Not Detect.) Stool Cryptosporidium PCR Not Detected (Not Detect.) Stl Sh Tox Pr E STEC PCR Not Detected (Not Detect.) Stool E coli O157 PCR Not applicable (Not Detect.) Stl Enterotoxigenic E PCR Not Detected (Not Detect.) Stool EPEC (PCR) Not Detected (Not Detect.) Stool EAEC (PCR) Not Detected (Not Detect.) Stl E. histolytica PCR Not Detected (Not Detect.) Stool Giardia Lamblia PCR Not Detected (Not Detect.) Stl P. shigelloides PCR Not Detected (Not Detect.) Stool Salmonella PCR Not Detected (Not Detect.) Stool Sapovirus (PCR) Not Detected (Not Detect.) Stl Shigella/EIEC PCR Not Detected (Not Detect.) St Y.enterocolitica PCR Not Detected (Not Detect.) Stool Vibrio (PCR) Not Detected (Not Detect.) Stl Vibrio cholerae PCR Not Detected (Not Detect.) Stl Norovirus GI/GII PCR Not Detected (Not Detect.) C. difficile Tox B Gene POSITIVE A* (Negative) C. difficile Toxin A&B Negative (Negative) C. difficile Interpret SEE NOTE <Amy Call, UNIFORM ATTENDANT - Last Filed: 10/17/22 11:22> Radiology Impression Discussion of test interpretation with radiology: I have reviewed the radiologist's reading. <Mariza Sanabria NP - Last Filed: 10/15/22 18:07> Radiologist Impression: EXAMINATION: CT ABDOMEN AND PELVIS WITHOUT CONTRAST? CLINICAL INFORMATION: Left lower quadrant pain with diarrhea? COMPARISON: CTA: Mammography 02/22/2019? TECHNIQUE: Multidetector volumetric imaging was performed from the superior aspect of the liver through the pubic symphysis. Sagittal and coronal reformatted images were obtained on the technologist's workstation.? This CT examination was performed using dose optimization techniques as appropriate, variously including the following: *Automated exposure control *Adjustment of mA and/or kV according to patient size (this includes techniques or standardized protocols for targeted exams where dose is matched to indication/reason for exam; i.e. extremities or head) *Use of iterative reconstruction technique DLP: 468 mGy-cm FINDINGS: LUNG BASES: The visualized lung bases are unremarkable.? LIVER, GALLBLADDER, AND BILIARY TREE: The liver is normal in size, shape, and attenuation. No focal hepatic lesion or biliary ductal dilatation is present. Status post cholecystectomy.? PANCREAS: Unremarkable.? SPLEEN: Again noted is a large calcified splenic granuloma.? ADRENAL GLANDS: Unremarkable.? KIDNEYS AND URETERS: The kidneys are normal in size, shape, and attenuation. 5.8 cm benign Bosniak class I cyst is again noted in the upper pole right kidney. This needs no additional imaging or follow-up. No hydronephrosis, hydroureter, or calculi seen. No perinephric stranding. ? BLADDER: Unremarkable.? GASTROINTESTINAL TRACT: There is mucosal thickening of the rectosigmoid with mild inflammatory changes surrounding the pericolonic fat which is a new finding when compared to the prior study. Findings are suggestive of colitis. A small bowel anastomosis is present in the quadrant. The small and large bowel are otherwise unremarkable. The appendix is unremarkable.? ABDOMINAL WALL: No significant hernia is appreciated. Reveal a midline abdominal scar. LYMPH NODES: Shotty retroperitoneal lymph nodes are present without adenopathy. VASCULAR: Unremarkable. PELVIC VISCERA: Surgically removed? OSSEOUS STRUCTURES: Compression fracture/small lymph node superior endplate of L1. Mild degenerative changes present throughout the spine. CT/CT abdomen pelvis wo IV con IMPRESSION: 1.? Findings are suggestive of colitis involving the rectosigmoid. 2.? Other incidental findings as described above. ? Fleischner guidelines were followed. Dictated By: Ant Eduardo MD Signed By: <Electronically signed by Ant Eduardo MD in [place]> 10/15/22 1312 DD/ 1225 TD/TT:? Volcanology Teacher: SS <Mariza Sanabria NP - Last Filed: 10/15/22 18:07> Medications Administered Discontinued Medications Generic Name Dose Route Start Last Admin Trade Name Freq PRN Reason Stop Dose Admin Sodium Chloride 1,000 mls @ 999 mls/hr 10/15/22 14:58 10/15/22 17:38 Ns IV 10/15/22 15:58 Infused .Q1H1M ONE Infusion <Mariza Sanabria NP - Last Filed: 10/15/22 18:07> Medications Administered Discontinued Medications Generic Name Dose Route Start Last Admin Trade Name Freq PRN Reason Stop Dose Admin Sodium Chloride 1,000 mls @ 999 mls/hr 10/15/22 14:58 10/15/22 17:38 Ns IV 10/15/22 15:58 Infused .Q1H1M ONE Infusion <Amy Call NP - Last Filed: 10/17/22 11:22> Discharge Plan Discharge Clinical Impression: Colitis, Abdominal pain <Mariza Sanabria NP - Last Filed: 10/15/22 18:07> Patient Disposition: Home, Self-Care <Mariza Sanabria NP - Last Filed: 10/15/22 18:07> Instructions: Abdominal Pain (ED), Colitis (ED) <Mariza Sanabria NP - Last Filed: 10/15/22 18:07> Prescriptions: New vancomycin 125 mg capsule 125 mg PO QID 10 Days Qty: 40 0RF No Action olmesartan 20 mg tablet 20 mg PO DAILY Qty: 90 3RF simvastatin 20 mg tablet 20 mg PO QPM Qty: 90 3RF famotidine [Pepcid AC] 20 mg tablet 20 mg PO BEDTIME Qty: 90 2RF cholecalciferol (vitamin D3) 25 mcg (1,000 unit) capsule 25 mcg PO DAILY prednisolone acetate 1 % drops,suspension 1 drp ophthalmic (eye) .QD magnesium 250 mg tablet 250 mg PO DAILY Osteo Bi-Flex Triple Strength 750 mg-644 mg- 30 mg-1 mg tablet 2 tab PO DAILY Zyrtec 10 mg capsule 10 mg PO DAILY PRN Flonase Sensimist 27.5 mcg/actuation spray,suspension 1 spray intranasal DAILY PRN (Reason: allergy symptoms) Rx Instructions: into each nostril <Mariza Sanabria NP - Last Filed: 10/15/22 18:07> Referrals: Yamileth Khoury MD [Primary Care Provider] - Bran Keys [Physician] - <Mariza Sanabria NP - Last Filed: 10/15/22 18:07> Interventions: ED Discharge Assessment Last Done: 10/15/22 19:24 <Mariza Sanabria NP - Last Filed: 10/15/22 18:07> Discharge Date/Time: 10/15/22 19:28 <Mariza Sanabria NP - Last Filed: 10/15/22 18:07> Print Language: Danish <Mariza Sanabria NP - Last Filed: 10/15/22 18:07>
[2022-10-15 14:49] VITALS: BP 94/46; PULSE 97; RESP 16; TEMP 37.1; O2SAT 97
--- NOTE | 2022-10-15 14:50 | PC.NURSE ---
Patient hypertensive at 94/46 , asymptomatic . Iv placed in left forearm . obtained order for 1liter of normal saline will reaccess blood pressure after hydration . patient aware of plan of care .
[2022-10-15] MEDS: 0.9 % Sodium Chloride 1,000 ML 999 ML IV (15:08)
[2022-10-15 16:39] LABS: Adenovirus F 40/41 Not Detected (Not Detect.); Astrovirus Not Detected (Not Detect.); Campylobacter Not Detected (Not Detect.); Cryptosporidium Not Detected (Not Detect.); Cyclospora cayetanensis Not Detected (Not Detect.); E. coli EAEC Not Detected (Not Detect.); E. coli EPEC Not Detected (Not Detect.); E. coli ETEC Not Detected (Not Detect.); E. coli STEC Not Detected (Not Detect.); Entamoeba histolytica Not Detected (Not Detect.); Giardia lamblia Not Detected (Not Detect.); Norovirus GI/GII Not Detected (Not Detect.); Plesiomonas shigelloides Not Detected (Not Detect.); Rotavirus A Not Detected (Not Detect.); Salmonella Not Detected (Not Detect.); Sapovirus Not Detected (Not Detect.); Shigella sp./EIEC Not Detected (Not Detect.); Vibrio Not Detected (Not Detect.); Vibrio Cholerae Not Detected (Not Detect.); Yersinia enterocolitica Not Detected (Not Detect.)
[2022-10-15 17:37] VITALS: BP 111/55; PULSE 95; RESP 16; TEMP 36.1; O2SAT 96
--- NOTE | 2022-10-15 17:40 | PC.NURSE ---
patient blood pressure improved after hydration of 1 liter of fluid as ordered by provider . Blood pressure 111/55 . provider aware . patient aware of plan of care .
[2022-10-15 19:12] VITALS: BP 111/55; PULSE 100; RESP 16; TEMP 37; O2SAT 96
[2022-10-15 20:16] LABS: CDiff Gene PCR POSITIVE (Negative)
[2022-10-15 21:00] LABS: CDIFF Internal ctrl Dots and bkg OK (V); CDiff Toxin Negative (Negative)
== END 2022-10-15 19:28 | disposition home or self-care (01) ==
PROVIDERS: Nurse Practitioner Family; Emergency Provider Emergency Medicine Emergency Medical Services; PCP Internal Medicine
DX: K52.9 Noninfective gastroenteritis and colitis, unspecified (principal); R10.32 Left lower quadrant pain; I10 Essential (primary) hypertension; E78.5 Hyperlipidemia, unspecified; Z79.02 Long term (current) use of antithrombotics/antiplatelets; Z79.899 Other long term (current) drug therapy
CPT/HCPCS: 36415; 74176; 80048; 81001; 85025; 87324; 87493; 87507; 96360; 96361; 99284

== ENCOUNTER 2023-01-05 06:50 | Day surgery (SDC) | payer MEDICARE, SELFPAY ==
--- NOTE | 2023-01-04 10:25 | P.CONAN_ITS ---
Documented by User: Queta Guadalupe NP 01/04/23 10:25 HPI - Anesthesia Eval Consult details Narrative: 72yo F for Colonoscopy PMFSH Active Problems Active Problems: All Active Problems (Updated 10/16/22 @ 00:00 by Background Daemon) GERD (gastroesophageal reflux disease) (Acute) Vitamin D deficiency (Acute) Osteopenia (Acute) Annual physical exam (Acute) Postmenopausal (Acute) Neutropenia (Acute) Hyperlipidemia (Acute) Essential (primary) hypertension (Acute) Past Medical History Medical History Annual physical exam GERD (gastroesophageal reflux disease) History of mammogram HTN (hypertension) Hyperlipidemia Neutropenia Osteopenia Postmenopausal Syncope Vitamin D deficiency Family History Family History Father Cancer Mother CHF (congestive heart failure) CVD (cardiovascular disease) Surgical History Surgical History H/O colonoscopy S/P ELIZABETH-BSO Status post corneal transplant Social History Social History Housing: House Alcohol intake: current Alcohol intake frequency: holidays/special occasions only Alcohol type: wine and hard liquor Patient Tobacco Use Status: Never used Tobacco e-Cigarette/Vaping Use: Never Used Use of substances other than those prescribed or required for medical reasons: No Are you DNR?: No Advance Directives: No Advance Directives Information Provided: Yes Recently lost weight without trying: No Nutrition Risks: No Nutritional Risk Current occupational status: retired Cognitive needs: No Hearing needs: No Vision needs: Yes Meds Allergies Allergy/AdvReac Type Severity Reaction Status Date / Time Sulfa (Sulfonamide Allergy Mild RASH Verified 07/30/22 08:07 Antibiotics) [SULFA (SULFONAMIDE ANTIBIOTICS)] clindamycin AdvReac Intermediate Diarrhea Verified 07/30/22 08:07 amlodipine AdvReac Unknown edema Verified 07/30/22 08:07 ENVIRONMENTAL Allergy Intermediate ITCHY Uncoded 07/30/22 08:07 EYES/SINUS SULFA Allergy Unknown unknown Uncoded 07/30/22 08:07 Home Medications Medication Instructions Recorded Confirmed Last Taken Type cholecalciferol (vitamin D3) 25 25 mcg PO DAILY 01/21/21 01/05/23 Unknown History mcg (1,000 unit) capsule cetirizine 10 mg capsule (Zyrtec) 10 mg PO DAILY PRN Allergy Symptoms 01/28/22 01/05/23 Unknown History fluticasone furoate 27.5 1 spray intranasal DAILY PRN 01/28/22 01/05/23 Unknown History mcg/actuation nasal allergy symptoms spray,suspension (Flonase Sensimist) glucosamine 750 tm-tbuarcflqun-hse 2 tab PO DAILY 01/28/22 01/05/23 Unknown History no1 644 mg-C 30 mg-mj 1 mg tablet (Osteo Bi-Flex Triple Strength) magnesium 250 mg tablet 250 mg PO DAILY 01/28/22 01/05/23 Unknown History prednisolone acetate 1 % eye 1 drp ophthalmic (eye) .QD 01/28/22 01/05/23 Unknown History drops,suspension Exam Exam Date and Time: January 04, 2023 1025 Pertinent Lab Results Pertinent Lab Results: Laboratory Tests 10/15/22 10/15/22 11:13 11:13 WBC 13.6 H Hgb 12.3 Hct 36.8 L Plt Count 308 Sodium 137 Potassium 3.5 D Chloride 103 Carbon Dioxide 26 BUN 9 Creatinine 0.62 Assessment and Plan Assessment Anesthesia Assessment: Chart Reviewed Documented by User: Tirso Danielle MD 01/05/23 07:59 [facility] Past Medical History Medical History Annual physical exam GERD (gastroesophageal reflux disease) History of mammogram HTN (hypertension) Hyperlipidemia Neutropenia Osteopenia Postmenopausal Syncope Vitamin D deficiency Family History Family History Father Cancer Mother CHF (congestive heart failure) CVD (cardiovascular disease) Family history of problems with anesthesia: No Surgical History Surgical History H/O colonoscopy S/P ELIZABETH-BSO Status post corneal transplant History of Problems with Anesthesia: No Social History Social History Housing: House Alcohol intake: current Alcohol intake frequency: holidays/special occasions only Alcohol type: wine and hard liquor Patient Tobacco Use Status: Never used Tobacco e-Cigarette/Vaping Use: Never Used Use of substances other than those prescribed or required for medical reasons: No Are you DNR?: No Advance Directives: No Advance Directives Information Provided: Yes Recently lost weight without trying: No Nutrition Risks: No Nutritional Risk Current occupational status: retired Cognitive needs: No Hearing needs: No Vision needs: Yes Meds Allergies Allergy/AdvReac Type Severity Reaction Status Date / Time Sulfa (Sulfonamide Allergy Mild RASH Verified 07/30/22 08:07 Antibiotics) [SULFA (SULFONAMIDE ANTIBIOTICS)] clindamycin AdvReac Intermediate Diarrhea Verified 07/30/22 08:07 amlodipine AdvReac Unknown edema Verified 07/30/22 08:07 ENVIRONMENTAL Allergy Intermediate ITCHY Uncoded 07/30/22 08:07 EYES/SINUS SULFA Allergy Unknown unknown Uncoded 07/30/22 08:07 Home Medications Medication Instructions Recorded Confirmed Last Taken Type cholecalciferol (vitamin D3) 25 25 mcg PO DAILY 01/21/21 01/05/23 Unknown History mcg (1,000 unit) capsule cetirizine 10 mg capsule (Zyrtec) 10 mg PO DAILY PRN Allergy Symptoms 01/28/22 01/05/23 Unknown History fluticasone furoate 27.5 1 spray intranasal DAILY PRN 01/28/22 01/05/23 Unknown History mcg/actuation nasal allergy symptoms spray,suspension (Flonase Sensimist) glucosamine 750 aw-mhnncqivhfx-qty 2 tab PO DAILY 01/28/22 01/05/23 Unknown History no1 644 mg-C 30 mg-mj 1 mg tablet (Osteo Bi-Flex Triple Strength) magnesium 250 mg tablet 250 mg PO DAILY 01/28/22 01/05/23 Unknown History prednisolone acetate 1 % eye 1 drp ophthalmic (eye) .QD 01/28/22 01/05/23 Unknown History drops,suspension Exam Airway Mallampati Class: I TM Dist: >3cm Neck ROM: Full Heart: ok Lungs: ok Assessment and Plan Final Anesthetic Review Family History of Problems with Anesthesia: No History of Problems with Anesthesia: No NPO: Yes ASA Class: III Final Preanesthetic Review: No Changes in Pt Med Stat, Meds/Allgs Chart Reviewed, Consent Obtained/Reviewed, Anes Risks/Benef Reviewed and DNR Form (If Appl.) Patient Risk: Intermediate Procedure Risk: Low Anesthetic Plan Anesthetic Plan: MAC: and Agree w/ Assess. and Plan Disposition: Standard PACU
[2023-01-05 07:09] VITALS: BMI 25.8
[2023-01-05 07:18] VITALS: BP 117/68; PULSE 90; RESP 16; TEMP 36.9; O2SAT 98
[2023-01-05] MEDS: Lactated Ringers 1,000 ML 100 ML IVCONT (07:38)
--- NOTE | 2023-01-05 08:20 | MHC.SHP ---
Pre-Procedural Eval Section A Date of Service: 01/05/23 Section B Chief Complaint: Other bacterial infections of unspecified site,abn Details of Present Illness: see H&P no changes Relevant Family History (Specify if Yes): No Relevant Social History: None Present Medications: see Short Stay Collaborative assessment Medical History: No relevant PMH History of Previous Operations: No relevant previous surgery Allergies: Allergies Allergy/AdvReac Type Severity Reaction Status Date / Time Sulfa (Sulfonamide Allergy Mild RASH Verified 07/30/22 08:07 Antibiotics) [SULFA (SULFONAMIDE ANTIBIOTICS)] clindamycin AdvReac Intermediate Diarrhea Verified 07/30/22 08:07 amlodipine AdvReac Unknown edema Verified 07/30/22 08:07 ENVIRONMENTAL Allergy Intermediate ITCHY Uncoded 07/30/22 08:07 EYES/SINUS SULFA Allergy Unknown unknown Uncoded 07/30/22 08:07 Review of Systems Sugical H&P ROS: Negative: Constitution, Cardiovascular, Respiratory, Neurological, Psychiatric, Hem-Onc, Allergic/Immunologic, Gastrointestinal, Genitourinary, Musculoskeletal, Integumentary, Endocrine and Eyes/Ears/Nose/Throat Exam Surgical H&P Exam: Normal: HEENT, Normal: Heart, Normal: Lungs, Normal: Extremities, Normal: Abdomen, Normal: Skin and Normal: Neurological Plan Diagnosis/Plan: Unchanged I have reviewed the history and physical and performed a pertinent physical examination on my patient. No changes have occurred unless specified. Time Spent With Patient Time: Total time managing care of this patient today ____ minutes.
--- NOTE | 2023-01-05 08:55 | PM.OP ---
Brief Operative Note Date of Service: 01/05/23 Pre-op diagnosis: change in bowels, cdiff infection Post-op diagnosis: same Procedure: colonosocpy Surgeon: Bran Keys Anesthesia: MAC Was an Liquid Waste Treatment Plant Operator used for this Procedure?: No Estimated blood loss (mL): 5 Pathology: other Condition: stable Disposition: PACU
[2023-01-05 08:57] VITALS: BP 99/37; PULSE 82; RESP 18; TEMP 36.3; O2SAT 95
[2023-01-05 09:12] VITALS: BP 122/61; PULSE 80; RESP 18; TEMP 36.2; O2SAT 98
--- NOTE | 2023-01-05 19:17 | OP_ITS ---
SURGEON: Bran Keys MD INDICATIONS: Change in bowel habits and history of C diff infection. PREOPERATIVE DIAGNOSIS: POSTOPERATIVE DIAGNOSIS: PROCEDURE PERFORMED: Colonoscopy to the terminal ileum with biopsy. ESTIMATED BLOOD LOSS: COMPLICATIONS: ANESTHESIA: Monitored anesthesia care. ASSISTANTS: SPECIMENS: DESCRIPTION OF PROCEDURE: Date: 01/05/23. History and physical was performed. The risks and benefits of the procedure were explained to the patient and informed consent was obtained. The patient was placed in the left lateral decubitus position. A digital rectal exam was performed and was found to be normal. The Olympus pediatric video colonoscope was introduced into the rectum and advanced to the cecum without difficulty. The cecum was identified by transillumination palpation and identification of ileocecal valve. Examination was performed. The scope was removed. She tolerated the procedure well and was taken to recovery area in stable condition. FINDINGS: Abdominal wall pressure was used to assist in advancement of the scope due to looping in the sigmoid. The terminal ileum was examined and appeared normal. The visualized colonic mucosa was normal. The quality of prep was good. No polyps were identified. There was no evidence of colitis or C diff infection. Random sigmoid biopsies were obtained. There was redundancy to the sigmoid. There was scattered diverticulosis throughout the colon. Retroflexed examination was normal. IMPRESSION: Normal colonoscopy. RECOMMENDATION: 1. Follow up the biopsy results. 2. Repeat colonoscopy for screening purposes is not recommended based on age. MD HAMLET Shen/KIMMIE / [id number] MTDD
== END 2023-01-05 09:33 | disposition home or self-care (01) ==
PROVIDERS: PCP Internal Medicine; Visit Provider Internal Medicine Gastroenterology
PROC: 0DJD8ZZ Inspection of Lower Intestinal Tract, Via Natural or Artificial Opening Endoscopic (ICD-10-PCS; CPT 45378; principal; 2023-01-05 08:10)
DX: R19.4 Change in bowel habit (principal); Z86.010 Personal history of colon polyps; Z86.19 Personal history of other infectious and parasitic diseases; K57.30 Diverticulosis of large intestine without perforation or abscess without bleeding; K58.2 Mixed irritable bowel syndrome; I10 Essential (primary) hypertension; E78.00 Pure hypercholesterolemia, unspecified; J30.2 Other seasonal allergic rhinitis; Z79.51 Long term (current) use of inhaled steroids; Z79.899 Other long term (current) drug therapy; Z88.1 Allergy status to other antibiotic agents; Z88.2 Allergy status to sulfonamides; Z90.49 Acquired absence of other specified parts of digestive tract
CPT/HCPCS: 45380; 88305; J3010

== ENCOUNTER 2023-02-03 09:29 | Outpatient (REF) | payer MEDICARE, SELFPAY ==
[2023-02-03 11:27] LABS: MANUAL DIFF FLAG NO
[2023-02-03 11:37] LABS: Basophils Percent Auto 0.9 % (0-2); Eosinophils Absolute Auto 0.3 X10*3/uL (0.0-0.4); Eosinophils Percent Auto 8.9 % (0-4); Hematocrit 38.1 % (37.0-47.0); Hemoglobin 12.7 g/dl (12.0-16.0); Imm Gran Abs Auto 0.01 X10*3/uL (0.00-0.03); Imm Gran Pct Auto 0.3 % (0.0-0.4); Lymphocytes Percent Auto 29.8 % (20-40); Mean Corpuscular HGB Conc 33.3 g/dl (31.0-35.0); Mean Corpuscular Hemoglobin 29.1 pg (27.0-33.0); Mean Corpuscular Volume 87.4 fL (80.0-98.0); Monocytes Absolute Auto 0.4 X10*3/uL (0.1-1.2); Monocytes Percent Auto 11.2 % (2-11); Neutrophils Absolute Auto 1.7 x10*3/uL (2.0-8.3); Neutrophils Percent Auto 48.9 % (45-73); Platelet Count 245 X10*3/uL (160-400); Red Blood Count 4.36 X10*6/uL (4.20-5.50); Red Cell Distribution Width 13.4 % (11.0-16.0); White Blood Count 3.5 X10*3/uL (4.8-10.8)
[2023-02-03 12:40] LABS: Alanine Aminotransferase 14 U/L (0-31); Albumin Level 4.4 g/dL (3.5-5.0); Alkaline Phosphatase 62 U/L (39-117); Anion Gap 11 (12-20); Aspartate Amino Transferase 15 U/L (5-31); Bilirubin Total 0.5 mg/dL (0.0-1.0); Blood Urea Nitrogen 9 mg/dL (9-16); Calcium 9.1 mg/dL (8.4-10.2); Carbon Dioxide 27 mmol/L (22-29); Chloride 107 mmol/L (96-108); Cholesterol 212 mg/dL; Estimated Glomerular Filt Rate > 60; Glucose Random 96 mg/dL (60-115); HDL Cholesterol 78 mg/dL; LDL Cholesterol Calculated 111 mg/dl; Sodium 141 mmol/L (135-145); Total Protein 6.6 g/dL (6.5-8.0); Triglycerides 116 mg/dL
[2023-02-03 12:44] LABS: Vitamin D 25-OH Total 45.6 ng/mL (>30)
== END 2023-02-03 09:30 | disposition home or self-care (01) ==
LOC: HO.HMGCLDS 09:29
PROVIDERS: PCP Internal Medicine; Visit Provider Internal Medicine
DX: D70.9 Neutropenia, unspecified (principal); E78.5 Hyperlipidemia, unspecified; I10 Essential (primary) hypertension; E55.9 Vitamin D deficiency, unspecified
CPT/HCPCS: 36415; 80053; 80061; 82306; 85025

== ENCOUNTER 2023-07-27 10:34 | Outpatient (REF) | payer MEDICARE, SELFPAY ==
[2023-07-27 13:25] LABS: MANUAL DIFF FLAG NO
[2023-07-27 13:40] LABS: Basophils Percent Auto 0.8 % (0-2); Eosinophils Absolute Auto 0.2 X10*3/uL (0.0-0.4); Eosinophils Percent Auto 5.7 % (0-4); Hematocrit 41.2 % (37.0-47.0); Hemoglobin 13.6 g/dl (12.0-16.0); Lymphocytes Absolute Auto 1.4 X10*3/uL (1.2-4.9); Lymphocytes Percent Auto 35.6 % (20-40); Mean Corpuscular Hemoglobin 29.8 pg (27.0-33.0); Mean Corpuscular Volume 90.2 fL (80.0-98.0); Mean Platelet Volume 10.3 fL (9.4-12.3); Monocytes Absolute Auto 0.4 X10*3/uL (0.1-1.2); Monocytes Percent Auto 11.2 % (2-11); Neutrophils Absolute Auto 1.8 x10*3/uL (2.0-8.3); Neutrophils Percent Auto 46.7 % (45-73); Platelet Count 250 X10*3/uL (160-400); Red Blood Count 4.57 X10*6/uL (4.20-5.50); Red Cell Distribution Width 12.3 % (11.0-16.0); White Blood Count 3.9 X10*3/uL (4.8-10.8)
[2023-07-27 13:58] LABS: Alanine Aminotransferase 13 U/L (0-31); Albumin Level 4.8 g/dL (3.5-5.0); Alkaline Phosphatase 68 U/L (39-117); Anion Gap 14 (12-20); Aspartate Amino Transferase 18 U/L (5-31); Bilirubin Total 0.6 mg/dL (0.0-1.0); Blood Urea Nitrogen 9 mg/dL (9-16); Calcium 9.9 mg/dL (8.4-10.2); Carbon Dioxide 26 mmol/L (22-29); Chloride 105 mmol/L (96-108); Cholesterol 219 mg/dL (<200); Estimated Glomerular Filt Rate > 60; Glucose Fasting 89 mg/dL (60-99); HDL Cholesterol 80 mg/dL (>40); LDL Cholesterol Calculated 113 mg/dL (<100); Potassium 3.6 mmol/L (3.3-5.1); Sodium 141 mmol/L (135-145); Total Protein 7.5 g/dL (6.5-8.0); Triglycerides 132 mg/dL (<150)
[2023-07-27 14:03] LABS: TSH reflex Free T4 1.22 uIU/mL (0.32-4.0)
== END 2023-07-27 10:35 | disposition home or self-care (01) ==
LOC: HO.HMGCLDS 10:34
PROVIDERS: PCP Internal Medicine; Visit Provider Internal Medicine
DX: E78.5 Hyperlipidemia, unspecified (principal); I10 Essential (primary) hypertension; D70.9 Neutropenia, unspecified
CPT/HCPCS: 36415; 80053; 80061; 84443; 85025

== ENCOUNTER 2023-08-23 09:20 | Outpatient (AMB) | payer MEDICARE, SELFPAY ==
[2023-08-23 09:26] VITALS: BP 134/78; PULSE 85; O2SAT 98; BMI 27.1
--- NOTE | 2023-08-23 09:26 | A.OFFPC_ITS ---
Vital Signs 08/23/23 09:26 Height 5 ft 3 in Weight 153 lb BMI 27.1 BP 134/78 Blood Pressure Location Lt brachial Position Sitting Pulse 85 Pulse Source Pulse Oximeter Pulse Oximetry (%) 98 Oxygen Delivery Method Room Air Intake Visit Reasons: Annual PE Intake Note: Pt is here today for PE. Allergies Sulfa (Sulfonamide Antibiotics) [SULFA (SULFONAMIDE ANTIBIOTICS)] Allergy (Mild, Verified 08/23/23 09:29) RASH clindamycin Adverse Reaction (Intermediate, Verified 08/23/23 09:29) Diarrhea amlodipine Adverse Reaction (Unknown, Verified 08/23/23 09:29) edema ENVIRONMENTAL Allergy (Intermediate, Uncoded 08/23/23 09:29) ITCHY EYES/SINUS SULFA Allergy (Unknown, Uncoded 08/23/23 09:29) unknown Medication List - Last Reconciled 08/23/23 by Yamileth Khoury MD Bifidobacterium infantis (Align) 4 mg PO DAILY cetirizine (Zyrtec) 10 mg PO DAILY PRN cholecalciferol (vitamin D3) 25 mcg PO DAILY famotidine (Pepcid AC) 20 mg PO BEDTIME fluticasone furoate 27.5 mcg/actuation (Flonase Sensimist) 1 spray intranasal DAILY PRN jyozctit-hzkj-evc0-C-mj-bosw 750 mg-644 mg- 30 mg-1 mg (Osteo Bi-Flex Triple Strength) 2 tabs PO DAILY magnesium 250 mg PO DAILY olmesartan 20 mg PO DAILY prednisolone acetate 1% 1 drp ophthalmic (eye) .QD simvastatin 20 mg PO QPM Tobacco use date assessed: 08/23/23 Fall risk assessment: No Falls in past year Last assessed Fall Risk: 08/23/23 Dental Screening Dental Screen Date: 08/23/23 Did you have a dental visit in the last 12 months?: Yes Did you have a dental problem in the last 6 months where you did not have access to dental care?: No Was dental information given to patient?: Patient has dentist HPI Annual PE HPI Details Pt presents for PE. PFSH Medical History GERD (gastroesophageal reflux disease) Vitamin D deficiency Osteopenia Annual physical exam Postmenopausal Neutropenia Hyperlipidemia History of mammogram Syncope HTN (hypertension) Surgical History Status post corneal transplant S/P ELIZABETH-BSO H/O colonoscopy Family History Father Cancer Mother CHF (congestive heart failure) CVD (cardiovascular disease) Social History Housing: House Alcohol intake: current Alcohol intake frequency: holidays/special occasions only Alcohol type: wine and hard liquor Patient Tobacco Use Status: Never used Tobacco e-Cigarette/Vaping Use: Never Used Current occupational status: retired Cognitive needs: No Hearing needs: No Vision needs: Yes Questionnaire Thrive Questionnaire Date Thrive assessed: 02/08/23 DEANGELO-7 AMB Questionnaire DEANGELO-7 Date DEANGELO - 7 assessed: 02/08/23 Source: Developed by Drs. Kareem Stinson, Ryann Morrison, Amanuel Ca and colleagues, with an educational zafar from [employer]. Review of Systems Const All systems reviewed & are unremarkable except as noted in HPI and below Reports no additional complaints Eyes Reports no additional complaints Card Reports no additional complaints Resp Reports no additional complaints GI Reports no additional complaints Reports no additional complaints Physical exam (Primary Care) Vital Signs: Last Vital Signs Pulse 85 08/23/23 09:26 BP 134/78 08/23/23 09:26 Pulse Ox 98 08/23/23 09:26 Oxygen Delivery Method Room Air 08/23/23 09:26 BMI result Body Mass Index 27.1 Tobacco/Smoking Status: Tobacco use Status Tobacco use date assessed 08/23/23 08/23/23 09:31 Patient Tobacco Use Status Never used Tobacco 08/23/23 09:31 e-Cigarette/Vaping Use Never Used 08/23/23 09:31 Thrive Assessment: Date of Thrive Assessment Date Thrive assessed 02/08/23 08/23/23 09:31 Const General: no acute distress HENMT Head: Yes normal to inspection Ears: hearing grossly normal bilaterally Face and sinus: Yes normal facial exam Throat: Yes posterior oropharynx normal Resp Effort & Inspection: normal respiratory effort Auscultation: clear to auscultation bilaterally Cardio Rhythm: regular rhythm Heart sounds: S1 normal heart sound present and S2 normal heart sound present GI Inspection: Yes normal to inspection Palpation (GI): Soft to palpation Percussion: Yes normal to percussion Auscultation: normal bowel sounds Assessment and Plan Assessment & Plan (1) Essential (primary) hypertension: Code(s): I10 - Essential (primary) hypertension Plan: cont Olmesartan (2) Hyperlipidemia: Code(s): E78.5 - Hyperlipidemia, unspecified Plan: cont statin (3) Annual physical exam: Code(s): Z00.00 - Encounter for general adult medical examination without abnormal findings Plan: Well-balanced diet regular physical activity discussed with the patient. she is up-to-date with mammogram. Patient will return in 1 year or as needed Orders: Orders Comprehensive [place]. Panel Fast 365 Days D70.9 - Neutropenia, unspecified, E55.9 - Vitamin D deficiency, unspecified, E78.5 - Hyperlipidemia, unspecified, I10 - Essential (primary) hypertension, Z00.00 - Encounter for general adult medical examination without abnormal findings Lipid Panel 365 Days D70.9 - Neutropenia, unspecified, E55.9 - Vitamin D deficiency, unspecified, E78.5 - Hyperlipidemia, unspecified, I10 - Essential (primary) hypertension, Z00.00 - Encounter for general adult medical examination without abnormal findings Vitamin D 25-OH Total 365 Days D70.9 - Neutropenia, unspecified, E55.9 - Vitamin D deficiency, unspecified, E78.5 - Hyperlipidemia, unspecified, I10 - Essential (primary) hypertension, Z00.00 - Encounter for general adult medical examination without abnormal findings Complete Blood Count Auto Diff 365 Days D70.9 - Neutropenia, unspecified, E55.9 - Vitamin D deficiency, unspecified, E78.5 - Hyperlipidemia, unspecified, I10 - Essential (primary) hypertension, Z00.00 - Encounter for general adult medical examination without abnormal findings TSH reflex Free T4 365 Days D70.9 - Neutropenia, unspecified, E55.9 - Vitamin D deficiency, unspecified, E78.5 - Hyperlipidemia, unspecified, I10 - Essential (primary) hypertension, Z00.00 - Encounter for general adult medical examination without abnormal findings Medications: Refilled olmesartan 20 mg PO DAILY 90 tabs 3RF I10 - Essential (primary) hypertension simvastatin 20 mg PO QPM 90 caps 3RF famotidine (Pepcid AC) 20 mg PO BEDTIME 90 tabs 3RF Coding Level of Care Code Est Pt Prev Care >65y(84914) Diagnoses Essential (primary) hypertension I10 Hyperlipidemia E78.5 Annual physical exam Z00.00
== END 2023-08-23 10:21 | disposition home or self-care (01) ==
PROVIDERS: PCP Internal Medicine; Visit Provider Internal Medicine
DX: Z00.00 Encounter for general adult medical examination without abnormal findings (principal); I10 Essential (primary) hypertension; E78.5 Hyperlipidemia, unspecified; D70.9 Neutropenia, unspecified
CPT/HCPCS: 99397

== ENCOUNTER 2023-12-03 08:33 | Outpatient (AMB) | payer MEDICARE, SELFPAY ==
--- NOTE | 2023-12-03 08:51 | AM.OFFWIN_ITS ---
Intake Vital Signs 12/03/23 08:52 Height 5 ft 3 in BP 130/90 H Blood Pressure Location Lt brachial Position Sitting Pulse 94 Pulse Source Pulse Oximeter Temp 98.6 F Temp Source Temporal Artery Scan Pulse Oximetry (%) 97 Oxygen Delivery Method Room Air Intake Visit Reasons: EST/right knee pain (lobby) Intake Note: pt is here today for rt knee pain started wednesday Patient Tobacco Use Status: Never used Tobacco Allergies Sulfa (Sulfonamide Antibiotics) [SULFA (SULFONAMIDE ANTIBIOTICS)] Allergy (Mild, Verified 12/03/23 08:53) RASH clindamycin Adverse Reaction (Intermediate, Verified 12/03/23 08:53) Diarrhea amlodipine Adverse Reaction (Unknown, Verified 12/03/23 08:53) edema ENVIRONMENTAL Allergy (Intermediate, Uncoded 08/23/23 09:29) ITCHY EYES/SINUS SULFA Allergy (Unknown, Uncoded 08/23/23 09:29) unknown HPI HPI Comments History of Present Illness Details 73 y/o female presents to walk in clinic with c/o right knee pain since Wednesday. Pain worse with standing, bending, and walking. Denies injury or trauma to the joint. Denies swelling or redness. [facility] Medical History GERD (gastroesophageal reflux disease) Vitamin D deficiency Osteopenia Annual physical exam Postmenopausal Neutropenia Hyperlipidemia History of mammogram Syncope HTN (hypertension) Surgical History Status post corneal transplant S/P ELIZABETH-BSO H/O colonoscopy Family History Father Cancer Mother CHF (congestive heart failure) CVD (cardiovascular disease) Social History Housing: House Alcohol intake: current Alcohol intake frequency: holidays/special occasions only Alcohol type: wine and hard liquor Patient Tobacco Use Status: Never used Tobacco e-Cigarette/Vaping Use: Never Used Current occupational status: retired Cognitive needs: No Hearing needs: No Vision needs: Yes Review of Systems Const All systems reviewed & are unremarkable except as noted in HPI and below Physical Exam Vital Signs: Last Vital Signs Temp 98.6 F 12/03/23 08:52 Pulse 94 02/09/24 08:52 BP 130/90 H 12/03/23 08:52 Pulse Ox 97 12/03/23 08:52 Oxygen Delivery Method Room Air 12/03/23 08:52 Const Orientation/consciousness: patient oriented x3 Skin General skin exam: no rashes or lesions noted Neuro General: patient oriented x3 Cranial nerves: Yes CN's II-XII intact bilaterally Gait exam (Neuro): Normal gait present Motor exam (neuro): 5/5 motor strength present throughout Extrem Right lower extremity: full ROM, no joint enlargement and knee Details: normal to inspection and normal ROM; no tenderness, no swelling and no lacerations; no cyanosis and no edema Left lower extremity: normal to inspection, full ROM, no joint enlargement and knee Details: normal to inspection and normal ROM; no tenderness and no swelling; no cyanosis and no edema Assessment & Plan Assessment & Plan (1) Osteoarthritis of right knee: Code(s): M17.11 - Unilateral primary osteoarthritis, right knee Qualifiers: Osteoarthritis type: primary Qualified Code(s): M17.11 - Unilateral primary osteoarthritis, right knee Plan: - NSAIDs or acetaminophen - Osteoarthritis - RICE Plan - NSAIDs or acetaminophen - Osteoarthritis - RICE Coding Level of Care Code Est Pt Level 3 (39608) Diagnoses Primary osteoarthritis of right knee M17.11 Osteoarthritis type: primary Time Spent (min) 15
[2023-12-03 08:52] VITALS: BP 130/90; PULSE 94; TEMP 37; O2SAT 97
== END 2023-12-03 10:28 | disposition home or self-care (01) ==
PROVIDERS: PCP Internal Medicine; Visit Provider Nurse Practitioner Family
DX: M17.11 Unilateral primary osteoarthritis, right knee (principal)
CPT/HCPCS: 99213

== ENCOUNTER 2023-12-03 09:12 | Outpatient (REF) | payer MEDICARE, SELFPAY ==
--- NOTE | ~2023-12-03 | XR_ITS ---
EXAMINATION: XR KNEE, RIGHT CLINICAL INFORMATION: Pain. Unilateral primary osteoarthritis. COMPARISON: None available. TECHNIQUE: Four views of the right knee. FINDINGS: There is mild reduction in medial and patellofemoral compartment joint space with tricompartment periarticular spurring. No visible acute fracture, dislocation or subluxation seen. There is mild suprapatellar joint effusion. There are no loose bodies. The soft tissues are normal. XR/XR knee RT 4V IMPRESSION: Mild degenerative changes right knee. No visible acute fracture, loose bodies are bony erosive changes.
== END 2023-12-03 09:13 | disposition home or self-care (01) ==
LOC: HO.HMGCX 09:12
PROVIDERS: PCP Internal Medicine; Visit Provider Nurse Practitioner Family
DX: M17.11 Unilateral primary osteoarthritis, right knee (principal)
CPT/HCPCS: 73564

== ENCOUNTER 2024-02-01 09:28 | Outpatient (AMB) | payer MEDICARE, SELFPAY ==
[2024-02-01 09:46] VITALS: BP 148/74; PULSE 92; TEMP 37.2; O2SAT 98; BMI 27.1
--- NOTE | 2024-02-01 09:46 | MHC.OFFWIV ---
Intake Vital Signs 02/01/24 09:46 Height 5 ft 3 in Weight 153 lb BMI 27.1 BP 148/74 H Blood Pressure Location Rt brachial Position Sitting Pulse 92 Pulse Source Pulse Oximeter Temp 98.9 F Temp Source Oral Pulse Oximetry (%) 98 Oxygen Delivery Method Room Air Intake Visit Reasons: EP Swollen eyes Intake Note: pt is here for both her eyes being swollen and she had tried a new face wash on Wednesday and Wednesday night her eyes started swelling Patient Tobacco Use Status: Never used Tobacco Allergies Sulfa (Sulfonamide Antibiotics) [SULFA (SULFONAMIDE ANTIBIOTICS)] Allergy (Mild, Verified 02/01/24 09:49) RASH clindamycin Adverse Reaction (Intermediate, Verified 02/01/24 09:49) Diarrhea amlodipine Adverse Reaction (Unknown, Verified 02/01/24 09:49) edema ENVIRONMENTAL Allergy (Intermediate, Uncoded 02/01/24 09:49) ITCHY EYES/SINUS SULFA Allergy (Unknown, Uncoded 02/01/24 09:49) unknown Medication List - Last Reconciled 02/01/24 by Rosalina Umanzor MD Bifidobacterium infantis (Align) 4 mg PO DAILY cetirizine (Zyrtec) 10 mg PO DAILY PRN cholecalciferol (vitamin D3) 25 mcg PO DAILY famotidine (Pepcid AC) 20 mg PO BEDTIME fluticasone furoate 27.5 mcg/actuation (Flonase Sensimist) 1 spray intranasal DAILY PRN [id number]-[id number] 750 mg-644 mg- 30 mg-1 mg (Osteo Bi-Flex Triple Strength) 2 tabs PO DAILY magnesium 250 mg PO DAILY olmesartan 20 mg PO DAILY prednisolone acetate 1% 1 drp ophthalmic (eye) .QD simvastatin 20 mg PO QPM HPI EP Swollen eyes HPI Details Patient is a 73-year-old female who used a new skin care product ended up with a rash on face She came in today for evaluation There is no fever no chills no other symptoms No swelling of lips or closing up throat On examination she has erythema and slight inflammation left cheek and right eyelid I am treating her with prednisone 10 mg 1 a day with breakfast for 3 days Patient is to take 1 Benadryl tonight In between cold compresses. [facility] Medical History GERD (gastroesophageal reflux disease) Vitamin D deficiency Osteopenia Annual physical exam Postmenopausal Neutropenia Hyperlipidemia History of mammogram Syncope HTN (hypertension) Surgical History Status post corneal transplant S/P ELIZABETH-BSO H/O colonoscopy Family History Father Cancer Mother CHF (congestive heart failure) CVD (cardiovascular disease) Social History Housing: House Alcohol intake: current Alcohol intake frequency: holidays/special occasions only Alcohol type: wine and hard liquor Patient Tobacco Use Status: Never used Tobacco e-Cigarette/Vaping Use: Never Used Current occupational status: retired Cognitive needs: No Hearing needs: No Vision needs: Yes Review of Systems Const All systems reviewed & are unremarkable except as noted in HPI and below Physical Exam Vital Signs: Last Vital Signs Temp 98.9 F 02/01/24 09:46 Pulse 92 02/01/24 09:46 BP 148/74 H 02/01/24 09:46 Pulse Ox 98 02/01/24 09:46 Oxygen Delivery Method Room Air 02/01/24 09:46 BMI result Body Mass Index 27.1 Const General: no acute distress Orientation/consciousness: patient oriented x3 HEENT Head images: 1. Erythema and inflammation 2. Right upper eyelid swelling present Eyes Other: Pupils reactive to light, EOMI, no pain with palpation Resp Effort & Inspection: normal respiratory effort and able to speak in complete sentences Auscultation: clear to auscultation bilaterally Neuro General: patient oriented x3 Psych Mental Status: mental status grossly normal Assessment & Plan Assessment & Plan (1) Allergic reaction: Code(s): T78.40XA - Allergy, unspecified, initial encounter Qualifiers: Encounter type: initial encounter Qualified Code(s): T78.40XA - Allergy, unspecified, initial encounter (2) Contact dermatitis: Code(s): L25.9 - Unspecified contact dermatitis, unspecified cause Qualifiers: Contact dermatitis type: allergic Contact dermatitis trigger: cosmetics Qualified Code(s): L23.2 - Allergic contact dermatitis due to cosmetics Plan Patient is a 73-year-old female who used a new skin care product ended up with a rash on face She came in today for evaluation There is no fever no chills no other symptoms No swelling of lips or closing up throat On examination she has erythema and slight inflammation left cheek and right eyelid I am treating her with prednisone 10 mg 1 a day with breakfast for 3 days Patient is to take 1 Benadryl tonight In between cold compresses. Medications: New prednisone 10 mg PO DAILY 3 tabs 0RF 3 days Coding Level of Care Code Est Pt Level 3 (69108) Diagnoses Allergic reaction, initial encounter T78.40XA Encounter type: initial encounter Allergic contact dermatitis due to cosmetics L23.2 Contact dermatitis type: allergic Contact dermatitis trigger: cosmetics
== END 2024-02-01 10:18 | disposition home or self-care (01) ==
PROVIDERS: PCP Internal Medicine; Visit Provider Internal Medicine
DX: L23.2 Allergic contact dermatitis due to cosmetics (principal)
CPT/HCPCS: 99213

== ENCOUNTER 2024-06-09 13:24 | Outpatient (AMB) | payer MEDICARE, SELFPAY ==
--- NOTE | 2024-06-09 13:25 | MHC.OFFWIV ---
Intake Vital Signs 06/09/24 13:27 Height 5 ft 3 in Weight 150 lb BMI 26.6 BP 140/90 H Blood Pressure Location Lt brachial Position Sitting Pulse 84 Pulse Source Pulse Oximeter Pulse Oximetry (%) 97 Oxygen Delivery Method Room Air Intake Visit Reasons: EP- Pain in LT knee travelling up Intake Note: Patient here for left knee pain that radiates up to the groin and has been losing sleep due to the pain. Patient Tobacco Use Status: Never used Tobacco Allergies Sulfa (Sulfonamide Antibiotics) [SULFA (SULFONAMIDE ANTIBIOTICS)] Allergy (Mild, Verified 06/09/24 13:28) RASH clindamycin Adverse Reaction (Intermediate, Verified 06/09/24 13:28) Diarrhea amlodipine Adverse Reaction (Unknown, Verified 06/09/24 13:28) edema ENVIRONMENTAL Allergy (Intermediate, Uncoded 06/09/24 13:28) ITCHY EYES/SINUS SULFA Allergy (Unknown, Uncoded 06/09/24 13:28) unknown Do you need a note to return to daycare/school/sports/work: No HPI EP- Pain in LT knee travelling up HPI Details This is a 74 year old female patient who presents today with report of left medial knee pain that radiates up inner thigh to groin. This started about 3 days ago and pain has been occurring only at night. Ice has not helped, but a warm blanket is somewhat beneficial. She denies any trauma or injury. Denies any swelling. Has taken Tylenol a couple of times with mild relief. Denies any hip pain. Denies any leg weakness/numbness. Has still been going for daily walks. [facility] Medical History GERD (gastroesophageal reflux disease) Vitamin D deficiency Osteopenia Annual physical exam Postmenopausal Neutropenia Hyperlipidemia History of mammogram Syncope HTN (hypertension) Surgical History Status post corneal transplant S/P ELIZABETH-BSO H/O colonoscopy Family History Father Cancer Mother CHF (congestive heart failure) CVD (cardiovascular disease) Social History Housing: House Alcohol intake: current Alcohol intake frequency: holidays/special occasions only Alcohol type: wine and hard liquor Patient Tobacco Use Status: Never used Tobacco e-Cigarette/Vaping Use: Never Used Current occupational status: retired Cognitive needs: No Hearing needs: No Vision needs: Yes Review of Systems Const All systems reviewed & are unremarkable except as noted in HPI and below Physical Exam Vital Signs: Last Vital Signs Pulse 84 06/09/24 13:27 BP 140/90 H 06/09/24 13:27 Pulse Ox 97 06/09/24 13:27 Oxygen Delivery Method Room Air 06/09/24 13:27 BMI result Body Mass Index 26.6 Const General: cooperative, healthy appearing, comfortable and no acute distress Resp Effort & Inspection: normal respiratory effort Skin General skin exam: no rashes or lesions noted Extrem Left lower extremity: normal capillary refill, hip/thigh Details: normal to inspection and normal ROM and knee (no swelling, no ttp, normal ROM) Details: normal to inspection, normal ROM and knee ligament exam normal Psych Appearance: grossly normal Mental Status: mental status grossly normal Speech and movement: Normal speech and movement present Assessment & Plan Assessment & Plan (1) Left medial knee pain: Code(s): M25.562 - Pain in left knee Plan: Patient has a new onset right medial knee pain which radiates proximally up toward groin. Her hip and knee exam are normal. Ligaments appear stable on exam. Knee has no swelling or crepitus. Not a clear radiculopathy. XR was obtained in the office today and shows mild medial compartment left tibiofemoral joint and left patellofemoral joint OA, with effusion. I have advised she try some conservative measures at this time, including NSAIDs, heat, topical cream, Tylenol, to see if this helps. I have prescribed Meloxicam x7 days. We reviewed indications, use, possible s/e of this. She has a f/u with PCP Dr. Khoury on 06/30. If pain persists at that time, she may benefit from ortho referral. Patient also may be interested in seeing provider at the [facility], as this is where her goes. She will discuss further with PCP if needed. All questions were answered and she agrees to plan. Medications: New meloxicam 15 mg PO DAILY 7 tabs 0RF 7 days M25.562 - Pain in left knee Coding Level of Care Code Est Pt Level 4 (36037) Diagnoses Left medial knee pain M25.562
[2024-06-09 13:27] VITALS: BP 140/90; PULSE 84; O2SAT 97; BMI 26.6
== END 2024-06-09 14:27 | disposition home or self-care (01) ==
PROVIDERS: PCP Internal Medicine; Visit Provider Nurse Practitioner Family
DX: M25.562 Pain in left knee (principal)
CPT/HCPCS: 99214

== ENCOUNTER 2024-06-09 13:50 | Outpatient (REF) | payer MEDICARE, SELFPAY ==
--- NOTE | ~2024-06-09 | XR_ITS ---
EXAMINATION: XR KNEE, LEFT CLINICAL INFORMATION: Left knee pain COMPARISON: None available. TECHNIQUE: Four views of the left knee. FINDINGS: BONES: Bony structures are intact. Osteophytes are seen in the left medial femoral condyle, left patella articular border. There is no focal bone destruction or periosteal reaction seen. JOINTS: Alignment of joints is normal. There is mild asymmetric decrease in medial compartment left knee joint space. SOFT TISSUE: Left suprapatellar fat pad shows increase in density. No radiopaque foreign body or abnormal air collection is seen. XR/XR knee LT 4V IMPRESSION: 1. 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 2. Left knee joint effusion is present.
== END 2024-06-09 13:51 | disposition home or self-care (01) ==
LOC: HO.HMGCX 13:50
PROVIDERS: PCP Internal Medicine; Visit Provider Nurse Practitioner Family
DX: M25.562 Pain in left knee (principal)
CPT/HCPCS: 73564

== ENCOUNTER 2024-06-30 10:37 | Outpatient (AMB) | payer MEDICARE, SELFPAY ==
--- NOTE | 2024-06-30 10:39 | MHC.PC.OV ---
Vital Signs 06/30/24 10:42 Height 5 ft 3 in Weight 153 lb BMI 27.1 BP 138/80 Blood Pressure Location Rt brachial Pulse 87 Pulse Source Pulse Oximeter Pulse Oximetry (%) 98 Intake Visit Reasons: Knee pain Intake Note: Patient here for knee pain f/u. Allergies Sulfa (Sulfonamide Antibiotics) [SULFA (SULFONAMIDE ANTIBIOTICS)] Allergy (Mild, Verified 06/30/24 10:43) RASH clindamycin Adverse Reaction (Intermediate, Verified 06/30/24 10:43) Diarrhea amlodipine Adverse Reaction (Unknown, Verified 06/30/24 10:43) edema ENVIRONMENTAL Allergy (Intermediate, Uncoded 06/30/24 10:43) ITCHY EYES/SINUS SULFA Allergy (Unknown, Uncoded 06/30/24 10:43) unknown Medication List - Last Reconciled 06/30/24 by Yamileth Khoury MD Bifidobacterium infantis (Align) 4 mg PO DAILY cetirizine (Zyrtec) 10 mg PO DAILY PRN cholecalciferol (vitamin D3) 25 mcg PO DAILY famotidine (Pepcid AC) 20 mg PO BEDTIME fluticasone furoate 27.5 mcg/actuation (Flonase Sensimist) 1 spray intranasal DAILY PRN [id number]-mj-[id number] 750 mg-644 mg- 30 mg-1 mg (Osteo Bi-Flex Triple Strength) 2 tabs PO DAILY magnesium 250 mg PO DAILY meloxicam 15 mg PO DAILY 7 days olmesartan 20 mg PO DAILY prednisolone acetate 1% 1 drp ophthalmic (eye) .QD simvastatin 20 mg PO QPM Tobacco use date assessed: 06/30/24 Fall risk assessment: No Falls in past year Last assessed Fall Risk: 06/30/24 Dental Screening Dental Screen Date: 06/30/24 Did you have a dental visit in the last 12 months?: Yes Did you have a dental problem in the last 6 months where you did not have access to dental care?: No Was dental information given to patient?: Patient has dentist HPI Knee pain HPI Details Pt presents for f/u for bilateral knee pain. Patient was seen and walk and had x-rays of both knees consistent with mild osteoarthritis. She took Meloxicam course with good relief. Pt has been walking daily for 1 mile but reports discomfort afterwards. Patient denies joint swelling erythema or warmth. Hypertension hyperlipidemia stable on current medications PFSH Medical History GERD (gastroesophageal reflux disease) Vitamin D deficiency Osteopenia Annual physical exam Postmenopausal Neutropenia Hyperlipidemia History of mammogram Syncope HTN (hypertension) Surgical History Status post corneal transplant S/P ELIZABETH-BSO H/O colonoscopy Family History Father Cancer Mother CHF (congestive heart failure) CVD (cardiovascular disease) Social History Housing: House Alcohol intake: current Alcohol intake frequency: holidays/special occasions only Alcohol type: wine and hard liquor Patient Tobacco Use Status: Never used Tobacco e-Cigarette/Vaping Use: Never Used Current occupational status: retired Cognitive needs: No Hearing needs: No Vision needs: Yes Questionnaire PHQ-9 Over the last 2 weeks, how often have you been bothered by any of the following problems? 1. Little interest or pleasure in doing things: not at all 2. Feeling down, depressed, or hopeless: not at all 3. Trouble falling or staying asleep, or sleeping too much: not at all 4. Feeling tired or having little energy: not at all 5. Poor appetite or overeating: not at all 6. Feeling bad about yourself - or that you are a failure or have let yourself or your family down: not at all 7. Trouble concentrating on things, such as reading the newspaper or watching television: not at all 8. Moving or speaking so slowly that other people could have noticed. Or the opposite - being so fidgety or restless that you have been moving around a lot more than usual: not at all 9. Thoughts that you would be better off or of hurting yourself in some way: not at all Total score: 0 Depression Screening Interpretation: Negative Depression Screening Done: Yes 64912 - PHQ-9 Billing: Yes Source: Developed by Drs. Kareem Stinson, Ryann Morrison, Amanuel Ca and colleagues, with an educational zafar from [employer]. Thrive Questionnaire Date Thrive assessed: 06/23/24 I am a: Patient What is your living situation today?: I have a steady place to live Within the past 12 months, did the food you bought not last and you didn't have the money to get more?: Never true Within the past 12 months, did you worry whether your food would run out before you got money to buy more?: Never true Do you have trouble paying for medicines?: No Do you have trouble getting transportation to medical appointments?: No Do you have trouble paying your heating and electricity bill?: No Do you have trouble taking care of your child, family member or friend?: No Do you have trouble with day-to-day activities such as bathing, preparing meals, shopping, managing finances, etc.?: No Are you currently unemployed and looking for a job?: No Are you interested in more education?: No Please select the resources that you would like help with: None Currently or been in a relationship where the following occur: No concerns reported THRIVE Score: 0 AUDIT C Alcohol Use Questionnaire (AUDIT-C) 1. How often do you have a drink containing alcohol?: 2-4 times a month 2. How many drinks containing alcohol do you have on a typical day when you are drinking?: 1 or 2 3. How often do you have six or more drinks on one occasion?: Never Total Score: 2 DEANGELO-7 AMB Questionnaire DEANGELO-7 Date DEANGELO - 7 assessed: 02/08/23 Feeling nervous, anxious, or on edge: 0 = Not at all Not being able to stop or control worryin = Not at all Worrying too much about different things: 0 = Not at all Trouble relaxin = Not at all Being so restless that it is hard to sit still: 0 = Not at all Becoming easily annoyed or irritable: 0 = Not at all Feeling afraid as if something awful might happen: 0 = Not at all Total DEANGELO-7 score (0-4 normal; 5-9 mild; 10-14 moderate; 15-21 severe): 0 Source: Developed by Drs. Kareem Stinson, Ryann Morrison, Amanuel Ca and colleagues, with an educational zafar from [employer]. Review of Systems Const All systems reviewed & are unremarkable except as noted in HPI and below Eyes Reports no additional complaints ENT Reports no additional complaints Card Reports no additional complaints Resp Reports no additional complaints Reports no additional complaints Physical exam (Primary Care) Vital Signs: Last Vital Signs Pulse 87 06/30/24 10:42 BP 138/80 06/30/24 10:42 Pulse Ox 98 06/30/24 10:42 BMI result Body Mass Index 27.1 Tobacco/Smoking Status: Tobacco use Status Tobacco use date assessed 06/30/24 06/30/24 10:47 Patient Tobacco Use Status Never used Tobacco 06/30/24 10:41 e-Cigarette/Vaping Use Never Used 06/30/24 10:41 PHQ-9: PHQ-9 Score PHQ-9: Total score 0 06/30/24 10:41 Depression Screening Interpretation: Negative Thrive Assessment: Date of Thrive Assessment Date Thrive assessed 06/23/24 06/30/24 10:41 Currently or been in a relationship where the following occur: No concerns reported Const General: no acute distress Neck Neck: Yes supple Resp Effort & Inspection: normal respiratory effort Auscultation: clear to auscultation bilaterally Cardio Rhythm: regular rhythm Heart sounds: S1 normal heart sound present and S2 normal heart sound present GI Inspection: Yes normal to inspection Palpation (GI): Soft to palpation Percussion: Yes normal to percussion Assessment and Plan Assessment & Plan (1) Neutropenia: Comment: mild, chronic Code(s): D70.9 - Neutropenia, unspecified Plan: Monitor CBC (2) Hyperlipidemia: Code(s): E78.5 - Hyperlipidemia, unspecified Plan: Continue statin (3) Essential (primary) hypertension: Code(s): I10 - Essential (primary) hypertension Plan: Continue current medications low-sodium diet increase exercise discussed with the patient. (4) Bilateral knee pain: Code(s): M25.561 - Pain in right knee; M25.562 - Pain in left knee Plan: PT was recommended but patient declined. She was advised to stationary bike at least 3 times a week Coding Level of Care Code Est Pt Level 4 (94392) Diagnoses Neutropenia D70.9 Hyperlipidemia E78.5 Essential (primary) hypertension I10 Bilateral knee pain M25.561; M25.562
[2024-06-30 10:42] VITALS: BP 138/80; PULSE 87; O2SAT 98; BMI 27.1
== END 2024-06-30 12:51 | disposition home or self-care (01) ==
PROVIDERS: PCP Internal Medicine; Visit Provider Internal Medicine
DX: D70.9 Neutropenia, unspecified (principal); E78.5 Hyperlipidemia, unspecified; I10 Essential (primary) hypertension; M25.561 Pain in right knee; M25.562 Pain in left knee
CPT/HCPCS: 99214

== ENCOUNTER 2024-08-18 10:26 | Outpatient (REF) | payer MEDICARE, SELFPAY ==
[2024-08-18 13:20] LABS: MANUAL DIFF FLAG NO
[2024-08-18 13:33] LABS: Basophils Percent Auto 0.9 % (0-2); Eosinophils Absolute Auto 0.2 X10*3/uL (0.0-0.4); Eosinophils Percent Auto 5.3 % (0-4); Hematocrit 38.3 % (37.0-47.0); Hemoglobin 12.8 g/dl (12.0-16.0); Imm Gran Abs Auto 0.01 X10*3/uL (0.00-0.03); Imm Gran Pct Auto 0.3 % (0.0-0.4); Lymphocytes Percent Auto 29.7 % (20-40); Mean Corpuscular HGB Conc 33.4 g/dl (31.0-35.0); Mean Corpuscular Volume 89.9 fL (80.0-98.0); Mean Platelet Volume 10.2 fL (9.4-12.3); Monocytes Absolute Auto 0.5 X10*3/uL (0.1-1.2); Monocytes Percent Auto 15.6 % (2-11); Neutrophils Absolute Auto 1.6 x10*3/uL (2.0-8.3); Neutrophils Percent Auto 48.2 % (45-73); Platelet Count 244 X10*3/uL (160-400); Red Blood Count 4.26 X10*6/uL (4.20-5.50); Red Cell Distribution Width 12.8 % (11.0-16.0); White Blood Count 3.4 X10*3/uL (4.8-10.8)
[2024-08-18 14:19] LABS: Alanine Aminotransferase 18 U/L (0-31); Albumin Level 4.5 g/dL (3.5-5.0); Alkaline Phosphatase 64 U/L (39-117); Aspartate Amino Transferase 26 U/L (5-31); Bilirubin Total 0.5 mg/dL (0.0-1.0); Blood Urea Nitrogen 9 mg/dL (9-16); Calcium 9.7 mg/dL (8.4-10.2); Cholesterol 189 mg/dL (<200); Estimated Glomerular Filt Rate > 60; Glucose Fasting 96 mg/dL (60-99); HDL Cholesterol 75 mg/dL (>40); LDL Cholesterol Calculated 88 mg/dL (<100); TSH reflex Free T4 1.08 uIU/mL (0.32-4.0); Triglycerides 134 mg/dL (<150); Vitamin D 25-OH Total 71.8 ng/mL (>30)
[2024-08-18 14:33] LABS: Anion Gap 12 (12-20); Carbon Dioxide 25 mmol/L (22-29); Chloride 106 mmol/L (96-108); Potassium 3.8 mmol/L (3.3-5.1); Sodium 139 mmol/L (135-145)
== END 2024-08-18 10:27 | disposition home or self-care (01) ==
LOC: HO.HMGCLDS 10:26
PROVIDERS: PCP Internal Medicine; Visit Provider Internal Medicine
DX: Z00.00 Encounter for general adult medical examination without abnormal findings (principal); D70.9 Neutropenia, unspecified; E78.5 Hyperlipidemia, unspecified; I10 Essential (primary) hypertension; E55.9 Vitamin D deficiency, unspecified
CPT/HCPCS: 36415; 80053; 80061; 82306; 84443; 85025

== ENCOUNTER 2024-08-24 10:22 | Outpatient (AMB) | payer MEDICARE, SELFPAY ==
[2024-08-24 10:24] VITALS: BP 124/76; PULSE 90; O2SAT 97; BMI 26.9
--- NOTE | 2024-08-24 10:24 | MHC.PC.OV ---
Vital Signs 08/24/24 10:24 Height 5 ft 3 in Weight 152 lb BMI 26.9 BP 124/76 Blood Pressure Location Lt brachial Position Sitting Pulse 90 Pulse Source Pulse Oximeter Pulse Oximetry (%) 97 Oxygen Delivery Method Room Air Intake Visit Reasons: Annual PE Intake Note: Pt is here today for PE. Allergies Sulfa (Sulfonamide Antibiotics) [SULFA (SULFONAMIDE ANTIBIOTICS)] Allergy (Mild, Verified 08/24/24 10:26) RASH clindamycin Adverse Reaction (Intermediate, Verified 08/24/24 10:26) Diarrhea amlodipine Adverse Reaction (Unknown, Verified 08/24/24 10:26) edema ENVIRONMENTAL Allergy (Intermediate, Uncoded 08/24/24 10:26) ITCHY EYES/SINUS SULFA Allergy (Unknown, Uncoded 08/24/24 10:26) unknown Medication List - Last Reconciled 08/24/24 by Yamileth Khoury MD Bifidobacterium infantis (Align) 4 mg PO DAILY cetirizine (Zyrtec) 10 mg PO DAILY PRN cholecalciferol (vitamin D3) 25 mcg PO DAILY famotidine (Pepcid AC) 20 mg PO BEDTIME fluticasone furoate 27.5 mcg/actuation (Flonase Sensimist) 1 spray intranasal DAILY PRN [id number]-[id number]-[id number]-mj-[id number] 750 mg-644 mg- 30 mg-1 mg (Osteo Bi-Flex Triple Strength) 2 tabs PO DAILY magnesium 250 mg PO DAILY olmesartan 20 mg PO DAILY prednisolone acetate 1% 1 drp ophthalmic (eye) .QD simvastatin 20 mg PO QPM Tobacco use date assessed: 08/24/24 Fall risk assessment: No Falls in past year Last assessed Fall Risk: 08/24/24 Dental Screening Dental Screen Date: 06/30/24 HPI Annual PE HPI Details Patient presents for physical. She has been exercising at [place] 3 times a week and her bilateral knee pain resolved. FOR[facility]LY [facility], [facility] Medical History GERD (gastroesophageal reflux disease) Vitamin D deficiency Osteopenia Annual physical exam Postmenopausal Neutropenia Hyperlipidemia History of mammogram Syncope HTN (hypertension) Surgical History Status post corneal transplant S/P ELIZABETH-BSO H/O colonoscopy Family History Father Cancer Mother CHF (congestive heart failure) CVD (cardiovascular disease) Social History Housing: House Alcohol intake: current Alcohol intake frequency: holidays/special occasions only Alcohol type: wine and hard liquor Patient Tobacco Use Status: Never used Tobacco e-Cigarette/Vaping Use: Never Used service: No Current occupational status: retired Cognitive needs: No Hearing needs: No Vision needs: Yes Questionnaire Thrive Questionnaire Date Thrive assessed: 06/23/24 I am a: Patient What is your living situation today?: I have a steady place to live Within the past 12 months, did the food you bought not last and you didn't have the money to get more?: Never true Within the past 12 months, did you worry whether your food would run out before you got money to buy more?: Never true Do you have trouble paying for medicines?: No Do you have trouble getting transportation to medical appointments?: No Do you have trouble paying your heating and electricity bill?: No Do you have trouble taking care of your child, family member or friend?: No Do you have trouble with day-to-day activities such as bathing, preparing meals, shopping, managing finances, etc.?: No Are you currently unemployed and looking for a job?: No Are you interested in more education?: No Please select the resources that you would like help with: None Currently or been in a relationship where the following occur: No concerns reported THRIVE Score: 0 DEANGELO-7 AMB Questionnaire DEANGELO-7 Date DEANGELO - 7 assessed: 02/08/23 Source: Developed by Drs. Kareem Stinson, Ryann Morrison, Amanuel Ca and colleagues, with an educational zafar from [employer]. Review of Systems Const All systems reviewed & are unremarkable except as noted in HPI and below Reports no additional complaints Eyes Reports no additional complaints ENT Reports no additional complaints Card Reports no additional complaints Resp Reports no additional complaints GI Reports no additional complaints Reports no additional complaints Physical exam (Primary Care) Vital Signs: Last Vital Signs Pulse 90 08/24/24 10:24 BP 124/76 08/24/24 10:24 Pulse Ox 97 08/24/24 10:24 Oxygen Delivery Method Room Air 08/24/24 10:24 BMI result Body Mass Index 26.9 Tobacco/Smoking Status: Tobacco use Status Tobacco use date assessed 08/24/24 08/24/24 10:28 Patient Tobacco Use Status Never used Tobacco 08/24/24 10:28 e-Cigarette/Vaping Use Never Used 08/24/24 10:28 Thrive Assessment: Date of Thrive Assessment Date Thrive assessed 06/23/24 08/24/24 10:28 Currently or been in a relationship where the following occur: No concerns reported Const General: no acute distress HENMT Head: Yes normal to inspection Ears: hearing grossly normal bilaterally Face and sinus: Yes normal facial exam Mouth: Normal oral and palatal mucosa present Throat: Yes posterior oropharynx normal Eyes General: appearance normal, both eyes and all related structures Neck Neck: Yes no lymphadenopathy and Yes supple Resp Effort & Inspection: normal respiratory effort Auscultation: clear to auscultation bilaterally Cardio Rhythm: regular rhythm Heart sounds: S1 normal heart sound present and S2 normal heart sound present GI Inspection: Yes normal to inspection Palpation (GI): Soft to palpation Percussion: Yes normal to percussion Auscultation: normal bowel sounds Coding Level of Care Code Est Pt Prev Care >65y(17465) Diagnoses Annual physical exam Z00.00 Neutropenia D70.9 Hyperlipidemia E78.5 Essential (primary) hypertension I10 Vitamin D deficiency E55.9 Assessment & Plan Assessment & Plan (1) Annual physical exam: Code(s): Z00.00 - Encounter for general adult medical examination without abnormal findings Category: Medical Plan: Well-balanced diet regular physical activity discussed with the patient. (2) Neutropenia: Comment: mild, chronic Code(s): D70.9 - Neutropenia, unspecified Category: Medical Plan: We will continue to monitor (3) Hyperlipidemia: Code(s): E78.5 - Hyperlipidemia, unspecified Category: Medical Plan: Continue statin (4) Essential (primary) hypertension: Code(s): I10 - Essential (primary) hypertension Category: Medical Plan: Continue olmesartan, return for physical in 1 year with a fasting labs before (5) Vitamin D deficiency: Code(s): E55.9 - Vitamin D deficiency, unspecified Category: Medical Plan: Continue vitamin-D supplement Orders: Orders Lipid Panel 1 Year D70.9 - Neutropenia, unspecified, E55.9 - Vitamin D deficiency, unspecified, E78.5 - Hyperlipidemia, unspecified, I10 - Essential (primary) hypertension Vitamin D 25-OH Total 1 Year D70.9 - Neutropenia, unspecified, E55.9 - Vitamin D deficiency, unspecified, E78.5 - Hyperlipidemia, unspecified, I10 - Essential (primary) hypertension Comprehensive [place]. Panel Fast 1 Year D70.9 - Neutropenia, unspecified, E55.9 - Vitamin D deficiency, unspecified, E78.5 - Hyperlipidemia, unspecified, I10 - Essential (primary) hypertension Complete Blood Count Auto Diff 1 Year D70.9 - Neutropenia, unspecified, E55.9 - Vitamin D deficiency, unspecified, E78.5 - Hyperlipidemia, unspecified, I10 - Essential (primary) hypertension TSH reflex Free T4 1 Year D70.9 - Neutropenia, unspecified, E55.9 - Vitamin D deficiency, unspecified, E78.5 - Hyperlipidemia, unspecified, I10 - Essential (primary) hypertension Medications: Refilled famotidine (Pepcid AC) 20 mg PO BEDTIME 90 tabs 3RF simvastatin 20 mg PO QPM 90 caps 3RF olmesartan 20 mg PO DAILY 90 tabs 3RF I10 - Essential (primary) hypertension
== END 2024-08-24 11:00 | disposition home or self-care (01) ==
LOC: HO.HMCC 10:23
PROVIDERS: PCP Internal Medicine; Visit Provider Internal Medicine
DX: Z00.00 Encounter for general adult medical examination without abnormal findings (principal); D70.9 Neutropenia, unspecified; E78.5 Hyperlipidemia, unspecified; I10 Essential (primary) hypertension; E55.9 Vitamin D deficiency, unspecified

== ENCOUNTER → 2024-08-24 10:22 | Outpatient (BNVA) | payer MEDICARE, SELFPAY | PROVIDERS: PCP Internal Medicine; Visit Provider Internal Medicine | DX: Z00.01 Encounter for general adult medical examination with abnormal findings (principal); D70.9 Neutropenia, unspecified; E78.5 Hyperlipidemia, unspecified; E55.9 Vitamin D deficiency, unspecified; I10 Essential (primary) hypertension | CPT/HCPCS: 99397 ==

== ENCOUNTER 2024-11-03 10:57 | Outpatient (AMB) | payer MEDICARE, SELFPAY ==
[2024-11-03 11:20] VITALS: BP 126/78; PULSE 97; O2SAT 99; BMI 26.9
--- NOTE | 2024-11-03 11:20 | AM.OFFWIN_ITS ---
Intake Vital Signs 11/03/24 11:20 Height 5 ft 3 in Weight 152 lb BMI 26.9 BP 126/78 Blood Pressure Location Lt brachial Position Sitting Pulse 97 Pulse Source Pulse Oximeter Pulse Oximetry (%) 99 Oxygen Delivery Method Room Air Intake Visit Reasons: EP muscle pain Hip/legs Intake Note: Pt is here today for a walk in visit. Pt c/o pain in her upper hips that goes down her legs and groin area. Patient Tobacco Use Status: Never used Tobacco Allergies Sulfa (Sulfonamide Antibiotics) [SULFA (SULFONAMIDE ANTIBIOTICS)] Allergy (Mild, Verified 11/03/24 11:23) RASH clindamycin Adverse Reaction (Intermediate, Verified 11/03/24 11:23) Diarrhea amlodipine Adverse Reaction (Unknown, Verified 11/03/24 11:23) edema ENVIRONMENTAL Allergy (Intermediate, Uncoded 11/03/24 11:23) ITCHY EYES/SINUS SULFA Allergy (Unknown, Uncoded 11/03/24 11:23) unknown HPI HPI Comments History of Present Illness Details History of Present Illness - The patient is a 74-year-old female pr esenting with pain in the lower extremities and buttocks. The pain is described as dull and writhing, with severe episodes over the past week, causing sleep disruption. The pain radiates from the hips to the thighs and shins, primarily affecting the posterior regions. - Similar episodes were treated 20 years ago with magnesium and muscle relaxants. The patient continues to take magnesium, supplemented with 250 mg daily, and uses grty-yqm-mokvsvl extra strength acetaminophen as needed. - Despite taking acetaminophen, she expe riences intermittent relief. She applied aspirin cream for temporary relief. The patient avoids ibuprofen due to concerns related to her hypertension. - The patient was previously advised to use a stationary bicycle instead of walking due to unrelated knee pain. She maintains adequate hydration and notes she does not experience charley horses associated with the pain. Physical Exam General: Cooperative, healthy appearing, comfortable, no acute distress and well developed Orientation: Patient oriented x3 Limitations: Full range of motion in hips, slight pain noted, but no limitations in movement Head: Normal to inspection Ears: Hearing grossly normal bilaterally Nose: Normal external nose present Face and sinus: Normal facial exam Eyes: Appearance normal, both eyes and all related structures Neck: Normal visual inspection and Yes full ROM Respiratory: Normal respiratory effort and able to speak in complete sentences. Skin: No rashes or lesions noted Neuro: Patient oriented x3 Extremities: Normal to inspection, no tenderness in hips, full range of motion noted bilaterally, negative straight leg bilaterally PFSH Medical History GERD (gastroesophageal reflux disease) Vitamin D deficiency Osteopenia Annual physical exam Postmenopausal Neutropenia Hyperlipidemia History of mammogram Syncope HTN (hypertension) Surgical History Status post corneal transplant S/P ELIZABETH-BSO H/O colonoscopy Family History Father Cancer Mother CHF (congestive heart failure) CVD (cardiovascular disease) Social History Housing: House Alcohol intake: current Alcohol intake frequency: holidays/special occasions only Alcohol type: wine and hard liquor Patient Tobacco Use Status: Never used Tobacco e-Cigarette/Vaping Use: Never Used service: No Current occupational status: retired Cognitive needs: No Hearing needs: No Vision needs: Yes Review of Systems Const All systems reviewed & are unremarkable except as noted in HPI and below Physical Exam Vital Signs: Last Vital Signs Pulse 97 11/03/24 11:20 BP 126/78 11/03/24 11:20 Pulse Ox 99 11/03/24 11:20 Oxygen Delivery Method Room Air 11/03/24 11:20 BMI result Body Mass Index 26.9 Assessment & Plan Assessment & Plan (1) Leg pain, bilateral: Code(s): M79.604 - Pain in right leg; M79.605 - Pain in left leg Plan: The patient is assessed for musculoskeletal pain with a plan to administer naproxen for inflammation every 12 hours throughout the weekend. A muscle relaxant was prescribed to manage potential spasms, advising caution against sedative side effects. Should the combined approach with Aleve and muscle relaxants prove ineffective, further evaluation by the primary care provider is recommended for persistent symptoms. The decision reflects current symptoms, past management efforts, and the absence of sharp neuropathic characteristics observed, considering musculoskeletal inflammation as the primary cause. Patient was informed and verbally consented to the use of an ambient scribe for clinic note documentation during this visit. (2) Low back pain: Code(s): M54.50 - Low back pain, unspecified Qualifiers: Chronicity: acute Back pain laterality: bilateral Sciatica presence: without sciatica Qualified Code(s): M54.50 - Low back pain, unspecified Plan: as above Medications: New cyclobenzaprine 5 mg PO Q8H PRN 15 tabs 0RF Muscle Spasm Coding Level of Care Code Est Pt Level 3 (09471) Diagnoses Leg pain, bilateral M79.604; M79.605 Acute bilateral low back pain without sciatica M54.50 Chronicity: acute Back pain laterality: bilateral Sciatica presence: without sciatica
== END 2024-11-03 13:49 | disposition home or self-care (01) ==
PROVIDERS: PCP Internal Medicine; Visit Provider Physician Assistant
DX: M79.604 Pain in right leg (principal); M79.605 Pain in left leg; M54.50 Low back pain, unspecified

== ENCOUNTER → 2024-11-03 10:57 | Outpatient (BNVA) | payer MEDICARE, SELFPAY | PROVIDERS: PCP Internal Medicine; Visit Provider Physician Assistant | DX: M79.604 Pain in right leg (principal); M79.605 Pain in left leg; M54.50 Low back pain, unspecified | CPT/HCPCS: 99212 ==

== ENCOUNTER 2025-02-20 12:03 | Outpatient (AMB) | payer MEDICARE, SELFPAY ==
--- NOTE | 2025-02-20 12:52 | AM.OFFWIN_ITS ---
Intake Vital Signs 3 02/20/25 12:53 Weight 151 lb BP 126/82 Blood Pressure Location Rt brachial Position Sitting Pulse 99 Pulse Source Pulse Oximeter Pulse Oximetry (%) 97 Oxygen Delivery Method Room Air Intake Visit Reasons: EP rash on RT [place] Intake Note: Patient here for rash on right [place] that has been present since november and is spreading. Patient Tobacco Use Status: Never used Tobacco Allergies Sulfa (Sulfonamide Antibiotics) [SULFA (SULFONAMIDE ANTIBIOTICS)] Allergy (Mild, Verified 02/20/25 13:05) RASH clindamycin Adverse Reaction (Intermediate, Verified 02/20/25 13:05) Diarrhea amlodipine Adverse Reaction (Unknown, Verified 02/20/25 13:05) edema ENVIRONMENTAL Allergy (Intermediate, Uncoded 02/20/25 13:05) ITCHY EYES/SINUS SULFA Allergy (Unknown, Uncoded 02/20/25 13:05) unknown Do you need a note to return to daycare/school/sports/work: No HPI HPI Comments 2 History of Present Illness0 Details Here today w c/o redness to right anterior lower leg since Nov reports started off as a small tyra shaped area of redness Itchy at first Started to apply neosporin but noted the area increased in redness and is now assoc w/ warmth Denies fever, chills, known trauma. active w/ derm for other issues, next appt 03/15/25 Exam RLE neurovasc intact area of erythema warm to the touch, no drainage or fluctuance Plan Cephalexin 500mg po BID x 7 days Edu on reasons to seek additional care PFSH Medical History GERD (gastroesophageal reflux disease) Vitamin D deficiency Osteopenia Annual physical exam Postmenopausal Neutropenia Hyperlipidemia History of mammogram Syncope HTN (hypertension) Surgical History Status post corneal transplant S/P ELIZABETH-BSO H/O colonoscopy Family History Father Cancer Mother CHF (congestive heart failure) CVD (cardiovascular disease) Social History Housing: House Alcohol intake: current Alcohol intake frequency: holidays/special occasions only Alcohol type: wine and hard liquor Patient Tobacco Use Status: Never used Tobacco e-Cigarette/Vaping Use: Never Used service: No Current occupational status: retired Cognitive needs: No Hearing needs: No Vision needs: Yes Physical Exam Vital Signs: Last Vital Signs Pulse 99 02/20/25 12:53 BP 126/82 02/20/25 12:53 Pulse Ox 97 02/20/25 12:53 Oxygen Delivery Method Room Air 02/20/25 12:53 Assessment & Plan Assessment & Plan (1) Cellulitis of right lower extremity: Code(s): L03.115 - Cellulitis of right lower limb Plan . Medications: New 2 cephalexin 500 mg PO Q12H 7 days 14 caps 0RF Coding Level of Care Code Est Pt Level 3 (45903) Diagnoses Cellulitis of right lower extremity L03.115
[2025-02-20 12:53] VITALS: BP 126/82; PULSE 99; O2SAT 97
--- OUTSIDE RECORDS SUMMARY | 2025-02-20 14:08 | XMS_ITS ---
[facility] Address [address] [place] [address] Care Team Providers Care Global Regulatory Affairs Manager Name Role Phone Yamileth Khoury MD Primary Care Provider UnavailRyan Valero Unavailable [phone] Allergies Allergen (clinical drug ingredient) Drug/Non Drug Allergy documented on EMR Reaction Allergy Type Onset Date Status sulfamethoxazole / trimethoprim Bactrim Unknown Drug Allergy Active clindamycin Clindamycin HCl Cdiff Drug Allergy Active Adhesive rash Allergy Active REASON FOR VISIT Painful nail(s) aggrevated by shoes causing difficulty standing/walking, Wart(s) Medications Medication SIG (Take, Route, Frequency, Duration) Notes Start Date End Date Status Calcium 500-125 MG-UNIT 1 tablet with fo od Orally Once a day for 30 day(s) Not-Taking Lisinopril 10 MG 1 tablet Orally Once a day Not-Taking hydroCHLOROthiazide 12.5 MG 1 capsule Or ally Once a day for 30 day(s) Not-Taking Ilevro Not-Taking amLODIPine Besylate 2.5 MG Orally Not-Taking Moxifloxacin HCl 1 drop into affected eye Ophthalmic Not-Taking Aspirin 81 MG 1 tablet Orally Once a day for 30 day(s) Not-Taking Vitamin D 1000 UNIT 1 tablet Orally Once a day for 30 day(s) Active Simvastatin 20 MG 1 tablet in the evening Orally Once a day for 30 day(s) Active Olmesartan Medoxomil Active prednisoLONE Active Magnesium 500 MG 1 tablet with a meal Orally Once a day for 30 day(s) Active Fluticasone Propionate HFA 44 MCG/ACT 1 puff Inhalation Twice a day Active Famotidine pepcid Active Social History Tobacco Use: Social History Observation Description Date Details (start date - stop date) Never Smoker NA - NA Tobacco Use/Smoking Question Answer Notes Are you a: nonsmoker Alcohol Screen Question Answer Notes Did you have a drink contain ing alcohol in the past year? Yes How often did you have a dri nk containing alcohol in the past year? Monthly or less (1 point) Points 1 Interpretation Negative Tobacco use other than smoking: Question Answer Notes Are you an other tobacco user? No Vital Signs Height 5ft 4in in 09/08/2024 Weight 150 lbs 09/08/2024 BMI 25.74 kg/m2 09/08/2024 Blood pressure systolic 123 mm Hg 09/08/20 24 Blood pressure diastolic 80 mm Hg 024 Procedures Procedure Date Ordered Date Performed Result Body Sit e 55298-EYIFCZJ NAIL, 6 OR MORE 09/08/2024 N/A 95927-Zynu Destruction, 1-14 09/08/2024 N/A Encounters Encounter Location Date Provider Diagnosis [facility] [address] [address] 09/08/2024 Ryan Gann Tinea unguium B35.1 ; Plantar wart B07.0 ; Pain in right toe(s) M79.674 ; Pain in left toe(s) M79.675 and Pain in left foot M79.672 Assessments Encounter Date Diagnosis (ICD Code) Assessment Notes Treatment Notes Treatment Clinical Notes Section Notes 09/08/2024 Tinea unguium (ICD-10 - B35.1) 09/08/2024 Plantar wart (ICD-10 - B07.0) Chronic 09/08/2024 Pain in right toe(s) (ICD-10 - M79.674) 09/08/2024 Pain in left toe(s) (ICD-10 - M79.675) 09/08/2024 Pain in left foot (ICD-10 - M79.672) Plan Of Treatment Pending Test Test Name Order Date [id number] NAIL, 6 OR MORE 09/08/2024 95148-Kxuf Destruction, 1-14 09/08/2024 Next Appt Details Follow Up: prn, Reason: Provider Name:Ryan V Azeem , 03/02/2025 09:30:00 AM, [address] [place], [address], Procedure Notes * Category Sub-Category Detail Notes Wart Treatment Procedure Verruca were deysi rided to pin-point bleeding margins with sterile 15 surgical blade, silver nitrate chemocautery applied, recomm. immune-boosting meds such as zinc, recomm. follow up with topical chemosurgical agents, recomm. Wartstick 40 percent Salicylic acid application under occlusion as directed, Pt defers any other forms of tx - 86447 Debride Nail 6-10 Nail debridement Performance o f this nail treatment by a nonprofessional would put this patients foot and overall health at risk. Therefore, debridement to affected nail(s), as described in exam, was performed extensively to reduce/remove overall nail length, girth, thickness, subungual debris, and necrotic tissue, by manual and/or electrical means through the use of a nail nipper and/or dremel-type universal grinder set up operator, to a more viable healthy nail plate or bed tissue 6-10. Silver nitrate used for any petechial bleeding as necessary. Definitive antifungal treatment options have been reviewed and discussed with the patient. The patient chooses, no pharmaceutical tx - 69756 Progress Notes * LAURENHoaDOB:[birth year] (74 yo F)Acc No.[id number]:09/08/2024 Progress Note Patient:?Hoa AGUILAR Provider:?Ryan Gann DPM :1950???Age:74 Y???Sex:Female D ate:09/08/2024 Address:[address] [place], [place] [address] Pcp:Yamileth Khoury MD Subjective: * Chief Complaints: * ???Painful nail(s) aggrevate d by shoes causing difficulty standing/walkingWart(s) * HPI: ???Painful Nails:?Pt States Last PCP Visit:?Date:?08/24/2024 * ROS:?General/Constitutional:?Nausea?denies.?Vomiting?denies.?Hunger Thirst?denies.?Loss appetite?denies.?Chills?denies.?Fatigue?denies.?Fever?denies.?Night Sweats?denies.?Unexplained weight loss?denies.?Unexplained weight gain?denies.?HEENTM:?Dentures?denies.?Dizziness?denies.?Glasses/contacts?admits.?Retinopathy?de nies.?Blurred/double vision?denies.?TMJ?denies.?Discharge/drainage?denies.?Implants?denies.?Sore throat?denies.?Dental implants?denies.?Hard of hearing ?denies.?Difficulty chewing/swallowing/speaking?denies.?Nose bleeds?denies.?Sore mouth?denies.?Respiratory:?On Oxygen?denies.?Pneumonia/pleurisy?denies.?Bronchitis?denies.?Emphysema?denies.?C oughing?denies.?Cough blood?denies.?Shortness of breath?denies.?Wheezing?denies.?Cardiovascular:?Pacemaker?denies.?MVP?denies.?WPW?denies.?CHF?denies.?Heart attack?denies.?Septal defect?denies.?Rapid beat?denies.?Chest pain ?denies.?Atrial Fib.?denies.?Murmur/Palpitations?denies.?Gastrointestinal:?Hemorrhoids?denies.?Stomach/Abdominal pain?denies.?Dark blood stool?denies.?Irritable bowel ?denies.?Constipation?denies.?Diarrhea?denies.?Hematology:?Swelling?denies.?Clots?denies.?Varicose Veins?denies.?Bruising?denies.?Bleeding problem?denies.?Genitourinary:?Blood urine?denies.?Frequent/Painfu/urination/bladder control?denies.?Kidney stones?denies.?Infection (UTI)?denies.?Nephropathy?denies.?sex trans dis (STD)?denies.?Prostate?denies.?Musculoskeletal:?Hammertoes?admits.?Bunions?admits.?Back Pain?denies.?Muscle Cramps/ Resting?denies.?Muscle cramps / walking?denies.?Generalized aches and pains?denies.?Weakness?denies.?Integ.:?Jefferson?denies.?Scars?denies.?Corns/calluses?admits.?Ingrown nails?admits.?Painful nails?admits.?Open Sores?denies.?Rashes?denies.?Neurologic:?Difficulty sleeping?denies.?Brain disorder?denies.?Numbness?denies.?Balance trouble?denies.?Confusion?denies.?Fainting/blackouts?denies.?Tingling?denies.?Tr emors?denies.? * Medical History:? * Surgical History:?colonoscop y 01/05/2023bscess Tooth x root canal 2022 * Hospitalization/Major Diagno stic Procedure:?[facility] [place] -[facility] 2x c diff sameday from clindamycin 09/2022 * Family History:?Mother: dece ased, foot problems, poor circulation.?Father: , diagnosed with Other malignant neoplasm of unspecified site.?Siblings: cancer (sister), heart attack, high blood pressure(brother).?Spouse: alive.? * Social History:?Tobacco Use:?Tobacco Use/Smoking?Are you a:?nonsmoker ?Tobacco use other than smoking?Are you an other tobacco user??No ???Drugs/Alcohol:?Drugs?Have you used drugs other than those for medical reasons in the past 12 months??No ?Alcohol Screen?Did you have a drink containing alcohol in the past year??Yes ?How often did you have a drink containing alcohol in the past year??Monthly or less (1 point) ?Points?1 ?Interpretation?Negative ???Miscellaneous:?Caffeine: yes, frequency: , 1-2 cups per day. ?Exercise: yes, walking. ?Marital status: . 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 * Medications:?TakingFamotidin e , Notes to Pharmacist: pepcidFluticasone Propionate HFA 44 MCG/ACT Aerosol 1 puff Inhalation Twice a day Magnesium 500 MG Tablet 1 tablet with a meal Orally Once a day prednisoLONE Solution Drops Olmesartan Medoxomil Simvastatin 20 MG Tablet 1 tablet in the evening Orally Once a day Vitamin D 1000 UNIT Tablet 1 tablet Orally Once a day Taking Famotidine , Notes to Pharmacist: pepcidTaking Fluticasone Propionate HFA 44 MCG/ACT Aerosol 1 puff Inhalation Twice a day Taking Magnesium 500 MG Tablet 1 tablet with a meal Orally Once a day Taking prednisoLONE Solution Drops Taking Olmesartan Medoxomil Taking Simvastatin 20 MG Tablet 1 tablet in the evening Orally Once a day Taking Vitamin D 1000 UNIT Tablet 1 tablet Orally Once a day Not-Taking/PRNAspirin 81 MG Tablet Chewable 1 tablet Orally Once a day Moxifloxacin HCl Solution DRops 1 drop into affected eye Ophthalmic amLODIPine Besylate 2.5 MG Tablet Orally Ilevro hydroCHLOROthiazide 12.5 MG Capsule 1 capsule Orally Once a day Lisinopril 10 MG Tablet 1 tablet Orally Once a day Calcium 500-125 MG-UNIT Tablet 1 tablet with food Orally Once a day Not-Taking/PRN Aspirin 81 MG Tablet Chewable 1 tablet Orally Once a day Not-Taking/PRN Moxifloxacin HCl Solution DRops 1 drop into affected eye Ophthalmic Not-Taking/PRN amLODIPine Besylate 2.5 MG Tablet Orally Not-Taking/PRN Ilevro Not-Taking/PRN hydroCHLOROthiazide 12.5 MG Capsule 1 capsule Orally Once a day Not-Taking/PRN Lisinopril 10 MG Tablet 1 tablet Orally Once a day Not-Taking/PRN Calcium 500-125 MG-UNIT Tablet 1 tablet with food Orally Once a day * Allergies:?BactrimClindamyci n HCl: Cdiff - AllergyAdhesive: rash - Allergyyes[Allergies Verified] Objective: * Vitals:?Ht: 5ft 4in, Wt: 150 , BMI: 25.74, Shoe size: 7.5-8, BP: 123/80 mm Hg, Ht-cm: 162.56 cm, Wt-k.04 kg. * Examination: ???Nails: ?NAILS are:?Elongated, overgrown, dystrophic, lytic, greater than 3mm thick, discolored and friable with crumbly malodorous subungual debris, with pain on palpation, TA, T1, T3, T4, T5, T6, T8, T9.?Dermatologic: ?VERRUCA:?CONT TO , Reveal a Single , multi-loculated , mosaically patterned, round, raised, flat-topped, petechial bleeding papulae(s), with cauliflower appearance and interrruption of skin lines, pain to lateral compression, and size estimated at 4mm diameter, plantar Forefoot, LEFT.? Assessment: * Assessment: 1.?Tinea unguium - B35.1 (Pr imary)???2.?Plantar wart - B07.0???Specify :LEFT???Notes :Chronic???3.?Pain in right toe(s) - M79.674???4.?Pain in left toe(s) - M79.675???5.?Pain in left foot - M79.672??? Plan: * Treatment: 2.?Plantar wart?Procedure: 84560-Zzzt Destruction, 1-14 * Procedures:?Debride Nail 6-10:?Nail debridement?Performance of this nail treatment by a nonprofessional would put this patients foot and overall health at risk. Therefore, debridement to affected nail(s), as described in exam, was performed extensively to reduce/remove overall nail length, girth, thickness, subungual debris, and necrotic tissue, by manual and/or electrical means through the use of a nail nipper and/or dremel-type universal grinder set up operator, to a more viable healthy nail plate or bed tissue 6-10. Silver nitrate used for any petechial bleeding as necessary. Definitive antifungal treatment options have been reviewed and discussed with the patient. The patient chooses, no pharmaceutical tx - 50542.?Wart Treatment:?Procedure?Verruca were debrided to pin-point bleeding margins with sterile 15 surgical blade, silver nitrate chemocautery applied, recomm. immune-boosting meds such as zinc, recomm. follow up with topical chemosurgical agents, recomm. Wartstick 40 percent Salicylic acid application under occlusion as directed, Pt defers any other forms of tx - 67839.? * Procedure Codes:?39106 DEBRI DE NAIL, 6 OR MORE, Modifiers: XS 81417 Wart Destruction, 1-14, Modifiers: XS * Follow Up:?prn * Images: * Sign off status: Completed true * Provider:?Ryan Gann DPM Date:?2023 Generated for Urusla dsouza/Marisa/Maulik on:?02/20/2025 02:08 PM EDT History and Physical Notes * HPI (History of Present Illness) Category Sub-Category Detail Notes Category Not es Painful Nails Pt States Last PCP Visit: Date:: 08/24/2024 Examination Category Sub-Category Detail Notes Category Not es Dermatologic VERRUCA: CONT TO , Reveal a Single , multi-loculated , mosaically patterned, round, raised, flat-topped, petechial bleeding papulae(s), with cauliflower appearance and interrruption of skin lines, pain to lateral compression, and size estimated at 4mm diameter, plantar Forefoot, LEFT Nails NAILS are: Elongated, overg rown, dystrophic, lytic, greater than 3mm thick, discolored and friable with crumbly malodorous subungual debris, with pain on palpation, TA, T1, T3, T4, T5, T6, T8, T9
--- OUTSIDE RECORDS SUMMARY | 2025-02-20 14:08 | XMS_ITS ---
Author Organization [facility] Address [address] [place] [address] Care Team Providers Care Crimping Machine Operator Name Role Phone Yamileth Khoury MD Primary Care Provider UnavailRyan Valero Unavailable [phone] Allergies Allergen (clinical drug ingredient) Drug/Non Drug Allergy documented on EMR Reaction Allergy Type Onset Date Status sulfamethoxazole / trimethoprim Bactrim Unknown Drug Allergy Active clindamycin Clindamycin HCl Cdiff Drug Allergy Active Adhesive rash Allergy Active REASON FOR VISIT Painful nail(s) aggrevated by shoes causing difficulty standing/walking Medications Medication SIG (Take, Route, Frequency, Duration) Notes Start Date End Date Status Calcium 500-125 MG-UNIT 1 tablet with fo od Orally Once a day for 30 day(s) Not-Taking Lisinopril 10 MG 1 tablet Orally Once a day Not-Taking hydroCHLOROthiazide 12.5 MG 1 capsule Or ally Once a day for 30 day(s) Not-Taking Ilevro Not-Taking amLODIPine Besylate 2.5 MG Orally Not-Taking Aspirin 81 MG 1 tablet Orally Once a day for 30 day(s) Not-Taking Vitamin D 1000 UNIT 1 tablet Orally Once a day for 30 day(s) Active Simvastatin 20 MG 1 tablet in the evening Orally Once a day for 30 day(s) Active Olmesartan Medoxomil Active Moxifloxacin HCl 1 drop into affected eye Ophthalmic Not-Taking prednisoLONE Active Magnesium 500 MG 1 tablet with a meal Orally Once a day for 30 day(s) Active Fluticasone Propionate HFA 44 MCG/ACT 1 puff Inhalation Twice a day Active Famotidine pepcid Active Social History Tobacco Use: Social History Observation Description Date Details (start date - stop date) Never Smoker NA - NA Tobacco use other than smoking: Question Answer Notes Are you an other tobacco user? No Tobacco Control (Standard) Question Answer Notes Tobacco use: Nonsmoker Additional Findings: Tobacco non-user Current no nsmoker AUDIT-C (Standard) Question Answer Notes Did you have a drink containing alcohol in the p ast year? No Points 0 Interpretation Negative Vital Signs Height 5ft 4in in 11/24/2024 Weight 150 lbs 11/24/2024 BMI 25.74 kg/m2 11/24/2024 Blood pressure systolic 120 mm Hg 11/24/19 25 Blood pressure diastolic 80 mm Hg 025 Procedures Procedure Date Ordered Date Performed Result Body Sit e 81011-YMOHRPR NAIL, 6 OR MORE 11/24/2024 N/A Encounters Encounter Location Date Provider Diagnosis [facility] [address] [place] [address] 11/24/2024 Ryan Gann Tinea unguium B35.1 ; Pain in right toe(s) M79.674 and Pain in left toe(s) M79.675 Assessments Encounter Date Diagnosis (ICD Code) Assessment Notes Treatment Notes Treatment Clinical Notes Section Notes 11/24/2024 Tinea unguium (ICD-10 - B35.1) 11/24/2024 Pain in right toe(s) (ICD-10 - M79.674) 11/24/2024 Pain in left toe(s) (ICD-10 - M79.675) Plan Of Treatment Pending Test Test Name Order Date [id number] NAIL, 6 OR MORE 11/24/2024 Next Appt Details Follow Up: prn, Reason: Provider Name:Ryan Gann , 03/02/2025 09:30:00 AM, [address] [place], [address], Procedure Notes * Category Sub-Category Detail Notes Debride Nail 6-10 Nail debridement Due to the cl inical pathology outlined in the exam findings, performance of this nail treatment is medically necessary as its management by an unskilled/untrained nonprofessional would put this patients foot and overall health at risk. Therefore, debridement to affected nail(s), as described in exam ( TA, T1, T3, T4, T5, T6, T8, T9 ), was performed exclusively by the physician of record to reduce/remove overall nail length, girth, thickness, subungual debris, and necrotic tissue, by manual and/or electrical means through the use of a nail nipper and/or dremel-type flat grinder operator, to a more viable healthy nail plate or bed tissue 6-10 nails in total. Silver nitrate was used for any petechial bleeding as necessary. Definitive antifungal treatment options, both pharmaceutical and surgical, have been reviewed and discussed with the patient. The patient solely prefers the use of intermittent/as needed professional debridement services for their nail condition and understands the need for additional periodic treatments to maintain effectiveness in symptomatic relief - 31709 Progress Notes * LAUREN, JuddeanDOB:[birth year] (74 yo F)Acc No.[id number]:11/24/2024 Progress Note Patient:?Hoa AGUILAR Provider:?Ryan Gann DPM :1950???Age:74 Y???Sex:Female D ate:11/24/2024 Address:[address] [place], [place] [id number] Pcp:Yamileth Khoury MD Subjective: * Chief Complaints: * ???Painful nail(s) aggrevate d by shoes causing difficulty standing/walking * HPI: ???Painful Nails:?Pt States Last PCP Visit:?Date:?08/24/2024 ?Misc:?Pt accompanied by, , SARITA.? * ROS:?General/Constitutional:?Nausea?denies.?Vomiting?denies.?Hunger Thirst?denies.?Loss appetite?denies.?Chills?denies.?Fatigue?denies.?Fever?denies.?Night Sweats?denies.?Unexplained weight loss?denies.?Unexplained [...] root canal 2022 * Hospitalization/Major Diagno stic Procedure:?[facility] [place] -[facility] 2x c diff sameday from clindamycin 09/2022 * Family History:?Mother: dece ased, foot problems, poor circulation.?Father: , diagnosed with Other malignant neoplasm of unspecified site.?Siblings: cancer (sister), heart attack, high blood pressure(brother).?Spouse: alive.? * Social History:?Tobacco Use:?Tobacco use other than smoking?Are you an other tobacco user??No ?Tobacco Control (Standard)?Tobacco use:?Nonsmoker ?Additional Findings: Tobacco non-user?Current nonsmoker ???Drugs/Alcohol:?Drugs?Have you used drugs other than those for medical reasons in the past 12 months??No ???Miscellaneous:?Caffeine: yes, frequency: , 1-2 cups per day. ?Exercise: yes, walking. ?Marital status: . 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 ???Drug/Alcohol:?AUDIT-C (Standard)?Did you have a drink containing alcohol in the past year??No ?Points?0 ?Interpretation?Negative * Medications:?TakingFamotidin e , Notes to Pharmacist: [...] tablet with food Orally Once a day Medication List reviewed and reconciled with the patientNot-Taking/PRN Aspirin 81 MG Tablet Chewable 1 tablet Orally Once a day Not-Taking/PRN Moxifloxacin HCl Solution DRops 1 drop into affected eye Ophthalmic Not-Taking/PRN amLODIPine Besylate 2.5 MG Tablet Orally Not- Taking/PRN Ilevro Not-Taking/PRN hydroCHLOROthiazide 12.5 MG Capsule 1 capsule Orally Once a day Not-Taking/PRN Lisinopril 10 MG Tablet 1 tablet Orally Once a day Not-Taking/PRN Calcium 500-125 MG-UNIT Tablet 1 tablet with food Orally Once a day Medication List reviewed and reconciled with the patient * Allergies:?BactrimClindamyci n HCl: Cdiff - AllergyAdhesive: rash - Allergyyes[Allergies Verified] Objective: * Vitals:?Ht: 5ft 4in, Wt:150, BMI: 25.74, Shoe size:7.5-8, BP:120/80mm Hg, Ht-cm: 162.56 cm, Wt-k.04 kg. * Examination: ???Nails: ?NAILS are:?Elongated, overgrown, dystrophic, lytic, greater than 3mm thick, discolored and friable with crumbly malodorous subungual debris, with pain on palpation, TA, T1, T3, T4, T5, T6, T8, T9.?Dermatologic: ?VERRUCA:?NOW NO FURTHER SIGN of mosaic papule(s) with skin lines now evident and visible, plantar Forefoot, LEFT.? Assessment: * Assessment: 1.?Tinea unguium - B35.1 (Pr imary)???2.?Pain in right toe(s) - M79.674???3.?Pain in left toe(s) - M79.675??? Plan: * Treatment: * Procedures:?Debride Nail 6-10:?Nail debridement?Due to the clinical pathology outlined in the exam findings, performance of this nail treatment is medically necessary as its management by an unskilled/untrained nonprofessional would put this patients foot and overall health at risk. Therefore, debridement to affected nail(s), as described in exam (?TA,?T1,?T3,?T4,?T5,?T6,?T8,?T9?), was performed exclusively by the physician of record to reduce/remove overall nail length, girth, thickness, subungual debris, and necrotic tissue, by manual and/or electrical means through the use of a nail nipper and/or dremel-type flat grinder operator, to a more viable healthy nail plate or bed tissue 6- 10 nails in total. Silver nitrate was used for any petechial bleeding as necessary. Definitive antifungal treatment options, both pharmaceutical and surgical, have been reviewed and discussed with the patient. The patient solely prefers the use of intermittent/as needed professional debridement services for their nail condition and understands the need for additional periodic treatments to maintain effectiveness in symptomatic relief - 64959.? * Procedure Codes:?46707 DEBRI DE NAIL, 6 OR MORE * Follow Up:?prn * Images: * Sign off status: Completed true * Provider:?Ryan Gann DPM Date:?2024 Generated for Ursula dsouza/Marisa/Maulik on:?02/20/2025 02:08 PM EDT History and Physical Notes * HPI (History of Present Illness) Category Sub-Category Detail Notes Category Not es Painful Nails Misc: Pt accompanied by, , SARITA Pt States Last PCP Visit: Date:: 08/24/2024 Examination Category Sub-Category Detail Notes Category Not es Dermatologic VERRUCA: NOW NO FURTHER S IGN of mosaic papule(s) with skin lines now evident and visible, plantar Forefoot, LEFT Nails NAILS are: Elongated, overg rown, dystrophic, lytic, greater than 3mm thick, discolored and friable with crumbly malodorous subungual debris, with pain on palpation, TA, T1, T3, T4, T5, T6, T8, T9
--- OUTSIDE RECORDS SUMMARY | 2025-02-20 14:08 | XMS_ITS ---
Author Organization 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 Name Role Phone Yamileth Khoury MD Primary Care Provider Unavaila Ryan Roe Unavailable [phone] Allergies Allergen (clinical drug ingredient) Drug/Non Drug Allergy documented on EMR Reaction Allergy Type Onset Date Status sulfamethoxazole / trimethoprim Bactrim Unknown Drug Allergy Active clindamycin Clindamycin HCl Cdiff Drug Allergy Active Adhesive rash Allergy Active REASON FOR VISIT Painful nail(s) aggrevated by shoes causing difficulty standing/walking, Wart(s) Medications Medication SIG (Take, Route, Frequency, Duration) Notes Start Date End Date Status Olmesartan Medoxomil Active prednisoLONE Active Famotidine pepcid Active Fluticasone Propionate HFA 44 MCG/ACT 1 puff Inhalation Twice a day Active Magnesium 500 MG 1 tablet with a meal Orally Once a day for 30 day(s) Active amLODIPine Besylate 2.5 MG Orally Not-Taking Ilevro Not-Taking hydroCHLOROthiazide 12.5 MG 1 capsule Or ally Once a day for 30 day(s) Not-Taking Lisinopril 10 MG 1 tablet Orally Once a day Not-Taking Calcium 500-125 MG-UNIT 1 tablet with fo od Orally Once a day for 30 day(s) Not-Taking Vitamin D 1000 UNIT 1 tablet Orally Once a day for 30 day(s) Active Aspirin 81 MG 1 tablet Orally Once a day for 30 day(s) Not-Taking Moxifloxacin HCl 1 drop into affected eye Ophthalmic Not-Taking Simvastatin 20 MG 1 tablet in the evening Orally Once a day for 30 day(s) Active Social History Tobacco Use: Social History [...] No Vital Signs Height 5ft 4in in 06/09/2024 Weight 150 lbs 06/09/2024 BMI 25.74 kg/m2 06/09/2024 Blood pressure systolic 123 mm Hg 06/09/20 24 Blood pressure diastolic 80 mm Hg 024 Procedures Procedure Date Ordered Date Performed Result Body Sit e 49857-GHTANVA NAIL, 6 OR MORE 06/09/2024 N/A 55068-Bmtl Destruction, 1-14 06/09/2024 N/A Encounters Encounter Location Date Provider Diagnosis [facility] [address] [address] 06/09/2024 Ryan Gann Tinea unguium B35.1 ; Plantar wart B07.0 ; Pain in right toe(s) M79.674 ; Pain in left toe(s) M79.675 and Pain in left foot M79.672 Assessments Encounter Date Diagnosis (ICD Code) Assessment Notes Treatment Notes Treatment Clinical Notes Section Notes 06/09/2024 Tinea unguium (ICD-10 - B35.1) 06/09/2024 Plantar wart (ICD-10 - B07.0) Chronic 06/09/2024 Pain in right toe(s) (ICD-10 - M79.674) 06/09/2024 Pain in left toe(s) (ICD-10 - M79.675) 06/09/2024 Pain in left foot (ICD-10 - M79.672) Plan Of Treatment Pending Test Test Name Order Date 73578-PHBCYRF NAIL, 6 OR MORE 06/09/2024 33473-Syvs Destruction, 1-14 06/09/2024 Next Appt Details Follow Up: prn, Reason: Provider Name:Ryan V Azeem , 03/02/2025 09:30:00 AM, [address] [place], [address], Procedure Notes * Category Sub-Category Detail Notes Wart Treatment Procedure Verrucae(s) were debrided to pin-point bleeding margins with sterile surgical blade, silver nitrate chemocautery applied, recomm. immune-boosting meds such as zinc, recomm. follow up with topical chemosurgical agents, Pt STILL defers any other forms of tx (74255), CONT, recomm. Wartstick 40% Salicylic acid application under occlusion as directed Debride Nail 6-10 Nail debridement Performance o f this nail treatment by a nonprofessional would put this patients foot and overall health at risk. Therefore, nail debridement was performed extensively to reduce/remove overall nail length, girth, thickness, subungual debris, and necrotic tissue, by manual and/or electrical means through the use of a nail nipper and/or dremel-type plate glass grinder, to a more viable healthy nail plate or bed tissue 6-10. Silver nitrate used for any petechial bleeding as necessary. Definitive antifungal treatment options have been reviewed and discussed with the patient. The patient chooses, no pharmaceutical tx (99645) Progress Notes * LAUREN, JuddeanDOB:[birth year] (74 yo F)Acc No.[id number]:06/09/2024 Progress Note Patient:?Hoa Aguilar Provider:?Ryan Gann DPM :1950???Age:74 Y???Sex:Female D ate:06/09/2024 Address:[address] [place], [place] [id number] Pcp:Yamileth Khoury MD Subjective: * Chief Complaints: * ???Painful nail(s) aggrevate d by shoes causing difficulty standing/walkingWart(s) * HPI: ???Painful Nails:?Pt States Last PCP Visit:?Date:?02/22/2024 * ROS:?General/Constitutional:?Nausea?denies.?Vomiting?denies.?Hunger Thirst?denies.?Loss appetite?denies.?Chills?denies.?Fatigue?denies.?Fever?denies.?Night Sweats?denies.?Unexplained weight loss?denies.?Unexplained [...] root canal 2022 * Hospitalization/Major Diagno stic Procedure:?[facility] [place] 2[place] c diff sameday from clindamycin [...] yes, walking. ?Marital status: . 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 * Medications:?TakingFamotidin e , Notes: pepcidFluticasone Propionate HFA 44 MCG/ACT Aerosol 1 puff Inhalation Twice a dayMagnesium 500 MG Tablet 1 tablet with a meal Orally Once a dayprednisoLONE Solution Drops Olmesartan Medoxomil Simvastatin 20 MG Tablet 1 tablet in the evening Orally Once a dayVitamin D 1000 UNIT Tablet 1 tablet Orally Once a dayTaking Famotidine , Notes: pepcidTaking Fluticasone Propionate HFA 44 MCG/ACT Aerosol 1 puff Inhalation Twice a dayTaking Magnesium 500 MG Tablet 1 tablet with a meal Orally Once a dayTaking prednisoLONE Solution Drops Taking Olmesartan Medoxomil Taking Simvastatin 20 MG Tablet 1 tablet in the evening Orally Once a dayTaking Vitamin D 1000 UNIT Tablet 1 tablet Orally Once a dayNot-Taking/PRNAspirin 81 MG Tablet Chewable 1 tablet Orally Once a dayMoxifloxacin HCl Solution DRops 1 drop into affected eye Ophthalmic amLODIPine Besylate 2.5 MG Tablet Orally Ilevro hydroCHLOROthiazide 12.5 MG Capsule 1 capsule Orally Once a dayLisinopril 10 MG Tablet 1 tablet Orally Once a dayCalcium 500-125 MG-UNIT Tablet 1 tablet with food Orally Once a dayMedication List reviewed and reconciled with the patientNot-Taking/PRN Aspirin 81 MG Tablet Chewable 1 tablet Orally Once a dayNot-Taking/PRN Moxifloxacin HCl Solution DRops 1 drop into affected eye Ophthalmic Not-Taking/PRN amLODIPine Besylate 2.5 MG Tablet Orally Not-Taking/PRN Ilevro Not-Taking/PRN hydroCHLOROthiazide 12.5 MG Capsule 1 capsule Orally Once a dayNot-Taking/PRN Lisinopril 10 MG Tablet 1 tablet Orally Once a dayNot- Taking/PRN Calcium 500-125 MG-UNIT Tablet 1 tablet with food Orally Once a dayMedication List reviewed and reconciled with the patient * Allergies:?BactrimClindamyci n HCl: Cdiff - AllergyAdhesive: rash - Allergyyes[Allergies Verified] Objective: * Vitals:?Ht: 5ft 4in, Wt:150, BMI:25.74, Shoe size:7.5-8, BP:123/80 mm Hg. * Examination: ???Nails: ?NAILS are:?Elongated, overgrown, dystrophic, [...] * Assessment: 1.?Tinea unguium - B35.1 (Pr imary)?2.?Plantar wart - B07.0, LEFT, Chronic?3.?Pain in right toe(s) - M79.674?4.?Pain in left toe(s) - M79.675?5.?Pain in left foot - M79.672? Plan: * Treatment: 2.?Plantar wart?Procedure: 25272-Qrbh Destruction, 1-14 * Procedures:?Debride Nail 6-10:?Nail debridement?Performance of this nail treatment by a nonprofessional would put this patients foot and overall health at risk. Therefore, nail debridement was performed extensively to reduce/remove overall nail length, girth, thickness, subungual debris, and necrotic tissue, by manual and/or electrical means through the use of a nail nipper and/or dremel-type plate glass grinder, to a more viable healthy nail plate or bed tissue 6-10. Silver nitrate used for any petechial bleeding as necessary. Definitive antifungal treatment options have been reviewed and discussed with the patient. The patient chooses, no pharmaceutical tx (03279).?Wart Treatment:?Procedure?Verrucae(s) were debrided to pin-point bleeding margins with sterile surgical blade, silver nitrate chemocautery applied, recomm. immune-boosting meds such as zinc, recomm. follow up with topical chemosurgical agents, Pt STILL defers any other forms of tx (98007), CONT, recomm. Wartstick 40% Salicylic acid application under occlusion as directed.? * Procedure Codes:?98157 DEBRI DE NAIL, 6 OR MORE, Modifiers: XS 33438 Wart Destruction, 1-14, Modifiers: XS * Follow Up:?prn * Images: * Sign off status: Completed true * Provider:?Ryan Gann DPM Date:?2023 Generated for Ursula dsouza/Marisa/Maulik on:?02/20/2025 02:08 PM EDT History and Physical Notes * HPI (History of Present Illness) Category Sub-Category Detail Notes Category Not es Painful Nails Pt States Last PCP Visit: Date:: 02/22/2024 Examination Category Sub-Category Detail Notes Category Not [...]
--- OUTSIDE RECORDS SUMMARY | 2025-02-20 14:08 | XMS_ITS | Patient Health Record ---
Author Organization [facility] Address [address] [place] [address] Care Team Providers Care Weekend Receptionist Name Role Phone Yamileth Khoury MD Primary Care Provider Ryan Sanchez Unavailable [phone] Allergies Allergen (clinical drug ingredient) Drug/Non Drug Allergy documented on EMR Reaction Allergy Type Onset Date Status sulfamethoxazole / trimethoprim Bactrim Unknown Drug Allergy Active clindamycin Clindamycin HCl Cdiff Drug Allergy Active Adhesive rash Allergy Active Reason For Referral No Information Medications Medication SIG (Take, Route, Frequency, Duration) Notes Start Date End Date Status Aspirin 81 MG 1 tablet Orally Once [...] Once a day for 30 day(s) Active Calcium 500-125 MG-UNIT 1 tablet with fo od Orally Once a day for 30 day(s) Not-Taking Fluticasone Propionate HFA 44 MCG/ACT 1 puff Inhalation Twice a day Active Lisinopril 10 MG 1 tablet Orally Once a day Not-Taking Famotidine pepcid Active hydroCHLOROthiazide 12.5 MG 1 capsule Or ally Once a day for 30 day(s) Not-Taking Ilevro Not-Taking amLODIPine Besylate 2.5 MG Orally Not-Taking Moxifloxacin HCl 1 drop into affected eye Ophthalmic Not-Taking Immunizations Vaccine Route Administration Date Status Comme [facility] COVID-19 Moderna Vaccine Unknown 09/10/2021 Administered 1st 12/22/20 2nd 01/19/21 Influenza Unknown 07/25/2021 Administered Social History Tobacco Use: Social History Observation [...] ast year? No Points 0 Interpretation Negative Problems Problem Type SNOMED Code ICD Code Onset Dates Problem Status W/U Status Risk Notes Problem Tinea unguium (527043974) Tinea unguium (B35.1) Active confirmed Vital Signs Blood pressure diastolic 80 mm Hg 11/24/2024 Height 5ft 4in in 11/24/2024 Blood pressure systolic 120 mm Hg 11/24/2024 Weight 150 lbs 11/24/2024 BMI 25.74 kg/m2 11/24/2024 Procedures Procedure Date Ordered Date Performed Result Body Sit e 36876-ZHAAEWO NAIL, 6 OR MORE 06/09/2024 N/A 31921-Jtpt Destruction, 1-06/09/2024 N/A 42481-LLXSKKB NAIL, 6 OR MORE 09/08/2024 N/A 78864-Jbke Destruction, 1-14 09/08/2024 N/A 83169-AKLJIFZ NAIL, 6 OR MORE 11/24/2024 N/A Encounters Encounter Location Date Provider Diagnosis [facility] [address] [address] 06/09/2024 Ryan Azeem Tinea unguium B35.1 ; Plantar wart B07.0 ; Pain in right toe(s) M79.674 ; Pain in left toe(s) M79.675 and Pain in left foot M79.[address] [facility] [address] 09/08/2024 Ryan Azeem Tinea unguium B35.1 ; Plantar wart B07.0 ; Pain in right toe(s) M79.674 ; Pain in left toe(s) M79.675 and Pain in left foot M79.672 [facility] [place] [address] [place] [address] 11/24/2024 Ryan Gann Tinea unguium B35.1 ; Pain in right toe(s) M79.674 and Pain in left toe(s) M79.675 Assessments Encounter Date Diagnosis (ICD Code) Assessment Notes Treatment Notes Treatment Clinical Notes Section Notes 06/09/2024 Tinea unguium (ICD-10 - B35.1) 06/09/2024 Plantar wart (ICD-10 - B07.0) Chronic 09/08/2024 Tinea unguium (ICD-10 - B35.1) 09/08/2024 Plantar wart (ICD-10 - B07.0) Chronic 11/24/2024 Tinea unguium (ICD-10 - B35.1) 11/24/2024 Pain in right toe(s) (ICD-10 - M79.674) 11/24/2024 Pain in left toe(s) (ICD-10 - M79.675) 09/08/2024 Pain in right toe(s) (ICD-10 - M79.674) 06/09/2024 Pain in right toe(s) (ICD-10 - M79.674) 06/09/2024 Pain in left toe(s) (ICD-10 - M79.675) 09/08/2024 Pain in left toe(s) (ICD-10 - M79.675) 09/08/2024 Pain in left foot (ICD-10 - M79.672) 06/09/2024 Pain in left foot (ICD-10 - M79.672) Plan Of Treatment Pending Test Test Name Order Date 78002-GEURCMS NAIL, 6 OR MORE 02/15/2015 04052-JFXODVM NAIL, 6 OR MORE 04/19/2015 06258-NTNIJGM NAIL, 6 OR MORE 07/09/2015 47502-IGIPCCM NAIL, 6 OR MORE 10/11/2015 55184-MAXQIAN NAIL, 6 OR MORE 01/24/2016 50428-JNWZZJB NAIL, 6 OR MORE 05/01/2016 47535-ZMWVVUW NAIL, 6 OR MORE 07/31/2016 07407-YSLOGYM NAIL, 6 OR MORE 01/01/2017 51141-RWLTTCL NAIL, 6 OR MORE 04/02/2017 28060-SUACGUS NAIL, 6 OR MORE 06/25/2017 74785-UFWXFLC NAIL, 6 OR MORE 09/24/2017 62121-YYEIEUB NAIL, 6 OR MORE 01/04/2018 37095-MSDVPYK NAIL, 6 OR MORE 04/08/2018 80561-OLARSHM NAIL, 6 OR MORE 07/08/2018 11512-WYWAXPP NAIL, 6 OR MORE 10/07/2018 02084-EGQCLBL NAIL, 6 OR MORE 12/16/2018 92054-HAVWVEN NAIL, 6 OR MORE 03/07/2019 08523-WGSMOMS NAIL, 6 OR MORE 05/16/2019 37597-TTEXWWH NAIL, 6 OR MORE 08/01/2019 83802-DCBZZYT NAIL, 6 OR MORE 10/03/2019 40898-ZFEZFZU NAIL, 6 OR MORE 12/15/2019 82490-ANYKKVK NAIL, 6 OR MORE 03/22/2020 83956-XXVYMOD NAIL, 6 OR MORE 05/31/2020 14822-WYZMJZI NAIL, 6 OR MORE 08/09/2020 26568-KYWYAZV NAIL, 6 OR MORE 11/08/2020 16270-LPCBEQA NAIL, 6 OR MORE 01/17/2021 32620-POLWTBC NAIL, 6 OR MORE 04/04/2021 72681-VXCSEXJ NAIL, 6 OR MORE 06/13/2021 35174-AJSWJYK NAIL, 6 OR MORE 09/09/2021 41006-ZSSYXTF NAIL, 6 OR MORE 11/18/2021 88763-BHMKDJU NAIL, 6 OR MORE 02/06/2022 71581-QEYWDAV NAIL, 6 OR MORE 04/24/2022 88298-ITFTUZR NAIL, 6 OR MORE 09/08/2022 21589-GJAXRDI NAIL, 6 OR MORE 11/13/2022 32991-XEIESYQ NAIL, 6 OR MORE 01/22/2023 94835-QMFAGLZ NAIL, 6 OR MORE 04/23/2023 22331-FCORNNH NAIL, 6 OR MORE 07/13/2023 96096-TYHWYWX NAIL, 6 OR MORE 10/15/2023 54674-EPQYWYB NAIL, 6 OR MORE 01/14/2024 09547-GTZFOJA NAIL, 6 OR MORE 06/09/2024 19476-OTIUCIX NAIL, 6 OR MORE 09/08/2024 43307-JGIPKCJ NAIL, 6 OR MORE 11/24/2024 77278-Mdqg Destruction, -14 04/02/2017 23745-Okpc Destruction, -14 09/08/2024 26124-Tkza Destruction, -06/09/2024 12282-Iqwt Destruction, 11-0701/14/2024 41281-Ylzc Destruction, 11-0710/15/2023 35254-Fmfk Destruction, 11-0707/13/2023 39938-Ougu Destruction, 11-0704/23/2023 08403-Wgji Destruction, 11-0701/22/2023 59607-Ozum Destruction, 11-0711/13/2022 01190-Mznn Destruction, 11-0709/08/2022 45070-Glwk Destruction, 11-0704/24/2022 47894-Nmtj Destruction, 11-0702/06/2022 53467-Oawp Destruction, 11-0711/18/2021 16188-Zruh Destruction, 11-0709/09/2021 96227-Ruvr Destruction, 11-0706/13/2021 50172-Wjzw Destruction, 11-0704/04/2021 14590-Ypug Destruction, 11-0701/17/2021 95235-Rvxa Destruction, 11-0711/08/2020 12818-Sgas Destruction, 11-0708/09/2020 64968-Obyn Destruction, 11-0705/31/2020 43132-Ydtx Destruction, 11-0703/22/2020 14797-Twtx Destruction, 11-0712/15/2019 01994-Uwex Destruction, 11-0710/03/2019 84222-Nfnt Destruction, 11-0708/01/2019 23830-Vlyo Destruction, 11-0705/16/2019 67890-Nnan Destruction, 11-0703/07/2019 70376-Hvps Destruction, 11-0712/16/2018 27827-Pmyb Destruction, 11-0710/07/2018 87820-Aujf Destruction, 11-0707/08/2018 82716-Cmyg Destruction, 11-0704/08/2018 89908-Dcdp Destruction, 11-0701/04/2018 58541-Dfyu Destruction, 11-0709/24/2017 00881-Jnwd Destruction, 11-0706/25/2017 12464-Hmbb Destruction, 11-0704/19/2015 85570-Qtsv Destruction, 11-0710/11/2015 35639-Izrf Destruction, 11-0707/09/2015 16061-Nyzv Destruction, 11-0702/15/2015 98766-Nlew Destruction, 11-0707/19/2012 89613-Sasj Destruction, 11-0703/06/2014 51017-Ejloebwk Plate 02/15/2015 96770-Qxakohis Plate 04/19/2015 45968-Elwyanfa Plate 07/09/2015 94085-Cmlbtnwv Plate 10/11/2015 08942-Rviycovc Plate 07/31/2016 92251-Uwiavcmr Plate 05/19/2016 00689-Dcyupteu Plate 03/22/2020 25247-Ywmsamoy Plate Each Additional 14617-Wyatfkma Plate Each Additional 31173-Jljitmzt Plate Each Additional 09215-WNHU SKIN LESIONS, 2 TO 4 01/02/20 17 - Ganglion Cyst Injection/Aspiratio n 02/15/2015- Ganglion Cyst Injection/Aspiratio n 03/06/2014 Next Appt Details Provider Name:Ryan Gann , 03/02/2025 09:30:00 AM, [address] [place], [address], Insurance Providers Payer Name Payer Address Payer Phone Subscriber Number Group Number Insured Name Patient Relationship to Insured Coverage Start Date Coverage End Date [employer] [address] [place] [address] [phone] [id number] Hoa Aguilar Self - patient is the insured Medical (General) History Medical History History ICD Code Cholesterol high blood pressure measles chicken pox Surgical History Surgery Date(Month/Year) colonoscopy 01/05/2023 abscess Tooth 12/2021 2x root canal 2022 Hospitalization History Reason Date(Month/Year) [facility] [place] -[place] 2x c diff sameday from clindamyc in 09/2022
== END 2025-02-20 13:26 | disposition home or self-care (01) ==
PROVIDERS: PCP Internal Medicine; Visit Provider Nurse Practitioner Family
DX: L03.115 Cellulitis of right lower limb (principal)

== ENCOUNTER → 2025-02-20 12:03 | Outpatient (BNVA) | payer MEDICARE, SELFPAY | PROVIDERS: PCP Internal Medicine; Visit Provider Nurse Practitioner Family | DX: L03.115 Cellulitis of right lower limb (principal) | CPT/HCPCS: 99212 ==

== ENCOUNTER 2025-02-27 09:45 | Outpatient (AMB) | payer MEDICARE, SELFPAY ==
[2025-02-27 10:07] VITALS: BP 138/80; PULSE 78; O2SAT 98
--- NOTE | 2025-02-27 10:07 | AM.OFFWIN_ITS ---
Intake Vital Signs 02/27/25 10:07 Weight 151 lb BP 138/80 Blood Pressure Location Lt brachial Position Sitting Pulse 78 Pulse Source Pulse Oximeter Pulse Oximetry (%) 98 Oxygen Delivery Method Room Air Intake Visit Reasons: EP-rash in both legs Intake Note: Patient here for rash on bulkat legs that has been present for about a week or more. Patient Tobacco Use Status: Never used Tobacco Allergies Sulfa (Sulfonamide Antibiotics) [SULFA (SULFONAMIDE ANTIBIOTICS)] Allergy (Mild, Verified 02/27/25 10:13) RASH clindamycin Adverse Reaction (Intermediate, Verified 02/27/25 10:13) Diarrhea amlodipine Adverse Reaction (Unknown, Verified 02/27/25 10:13) edema ENVIRONMENTAL Allergy (Intermediate, Uncoded 02/27/25 10:13) ITCHY EYES/SINUS SULFA Allergy (Unknown, Uncoded 02/27/25 10:13) unknown Medication List - Last Reconciled 02/27/25 by Rosalina Umanzor MD Bifidobacterium infantis (Align (B.infantis)) 4 mg PO DAILY cetirizine (Zyrtec) 10 mg PO DAILY PRN cholecalciferol (vitamin D3) 25 mcg PO DAILY cyclobenzaprine 5 mg PO Q8H PRN famotidine (Pepcid AC) 20 mg PO BEDTIME fluticasone furoate 27.5 mcg/actuation (Flonase Sensimist) 1 spray intranasal DAILY PRN cgvwimow-hpeu-yux5-C-mj-bosw 750 mg-644 mg- 30 mg-1 mg (Osteo Bi-Flex Triple Strength) 2 tabs PO DAILY magnesium 250 mg PO DAILY olmesartan 20 mg PO DAILY prednisolone acetate 1% 1 drp ophthalmic (eye) .QD simvastatin 20 mg PO QPM Do you need a note to return to daycare/school/sports/work: No HPI EP-rash in both legs HPI Details History - The patient is a 74-year-old female pr esenting with a rash misdiagnosed as cellulitis. - Initially visited for a rash that bega n as a dime-sized red nicolás on the face, later becoming inflamed. - She was treated with prednisone for an earlier similar rash that quickly resolved. - The rash worsened, leading to a return visit, and it was re-evaluated as a possible cellulitis by a different provider. - Recent antibiotic use for the rash inc luded Ciprofloxacin, ineffective in resolving the condition. . - Reports recent appearance as being int ensely itchy, predominantly at night, suggesting hives. - Usage of cortisone cream was employed to alleviate itching. - Aware of pronounced reactions to emoti onal triggers, characterized by redness in face and neck. 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 Problem List -urticaria (Hives) - History of Cellulitis - Clostridioides difficile Infection (Hi story) Patient Instructions - Take prednisone 20 mg once daily for f luis fernando days. - Continue taking Benadryl at night to m anage itching. - Monitor for worsening symptoms and see k urgent care if severe symptoms develop. - Avoid known allergens if possible, giv en the history of hives. Review of Systems - General: No fever no chills - Neurological: No headaches no dizziness - Ear nose throat: No sore throat no hearing difficulty no ear pain - Cardiovascular: No syncope, no chest pain, no palpitations - Gastrointestinal: No nausea vomiting or diarrhea Physical Exam General: No acute distress HEENT: No acute findings Neck: Supple Respiratory system: Able to talk in full sentences, no audible wheeze Gastrointestinal: No pain Extremities: Raised red patches itchy mostly left leg also right leg above knee 1 patch below-knee right side COMPUTER TESTER: Alert awake oriented x3 motor sensory intact Skin: Rash present, both legs, chest, right cheek raised and pruritic PFSH Medical History GERD (gastroesophageal reflux disease) Vitamin D deficiency Osteopenia Annual physical exam Postmenopausal Neutropenia Hyperlipidemia History of mammogram Syncope HTN (hypertension) Surgical History Status post corneal transplant S/P ELIZABETH-BSO H/O colonoscopy Family History Father Cancer Mother CHF (congestive heart failure) CVD (cardiovascular disease) Social History Housing: House Alcohol intake: current Alcohol intake frequency: holidays/special occasions only Alcohol type: wine and hard liquor Patient Tobacco Use Status: Never used Tobacco e-Cigarette/Vaping Use: Never Used service: No Current occupational status: retired Cognitive needs: No Hearing needs: No Vision needs: Yes Physical Exam Vital Signs: Last Vital Signs Pulse 78 02/27/25 10:07 BP 138/80 02/27/25 10:07 Pulse Ox 98 02/27/25 10:07 Oxygen Delivery Method Room Air 02/27/25 10:07 Assessment & Plan Assessment & Plan (1) Urticaria: Code(s): L50.9 - Urticaria, unspecified Plan History - The patient is a 74-year-old female presenting with a rash misdiagnosed as cellulitis. - Initially visited for a rash that began as a dime-sized red nicolás on the face, later becoming inflamed. - She was treated with prednisone for an earlier similar rash that quickly resolved. - The rash worsened, leading to a return visit, and it was re-evaluated as a possible cellulitis by a different provider. - Recent antibiotic use for the rash included Ciprofloxacin, ineffective in resolving the condition. . - Reports recent appearance as being intensely itchy, predominantly at night, suggesting hives. - Usage of cortisone cream was employed to alleviate itching. - Aware of pronounced reactions to emotional triggers, characterized by redness in face and neck. - Has experienced recurrent C. diff infections previously, highlighting concerns about antibiotic use. Problem List -urticaria (Hives) - History of Cellulitis - Clostridioides difficile Infection (History) Patient Instructions - Take prednisone 20 mg once daily for five days. - Continue taking Benadryl at night to manage itching. - Monitor for worsening symptoms and seek urgent care if severe symptoms develop. - Avoid known allergens if possible, given the history of hives. Medications: New prednisone 20 mg PO DAILY 5 days 5 tabs 0RF Coding Level of Care Code Est Pt Level 3 (12773) Diagnoses Urticaria L50.9
--- OUTSIDE RECORDS SUMMARY | 2025-02-27 10:50 | XMS_ITS | Patient Health Record ---
Author Organization [facility] Address [address] [place] [address] Care Team Providers Care Automation And Control Engineer Name Role Phone Yamileth Khoury MD Primary Care Provider Ryan Sanchez Unavailable [phone] Allergies Allergen (clinical drug ingredient) Drug/Non Drug [...] Immunizations Vaccine Route Administration Date Status Comme [facility] COVID-19 Moderna Vaccine Unknown 09/10/2021 Administered 1st [...] W/U Status Risk Notes Problem Tinea unguium (233475724) Tinea unguium (B35.1) Active confirmed Vital Signs Blood pressure diastolic 80 mm Hg 11/24/2024 Height 5ft 4in in 11/24/2024 Blood pressure systolic 120 mm Hg 11/24/2024 Weight 150 lbs 11/24/2024 BMI 25.74 kg/m2 11/24/2024 Procedures Procedure Date Ordered Date Performed Result Body Sit e 60481-TVKBYUL NAIL, 6 OR MORE 06/09/2024 N/A 10977-Uebj Destruction, 1-06/09/2024 N/A 90689-OADWKDV NAIL, 6 OR MORE 09/08/2024 N/A 17807-Obqz Destruction, 1-14 09/08/2024 N/A 77893-EMDCTWF NAIL, 6 OR MORE 11/24/2024 N/A Encounters Encounter Location Date Provider Diagnosis [facility] [address] [address] 06/09/2024 Ryan Azeem Tinea unguium B35.1 ; Plantar wart B07.0 ; Pain in right toe(s) M79.674 ; Pain in left toe(s) M79.675 and Pain in left foot M79.[address] [facility] [address] 09/08/2024 Ryan Azeem Tinea unguium B35.1 ; Plantar wart B07.0 ; Pain in right toe(s) M79.674 ; Pain in left toe(s) M79.675 and Pain in left foot M79.672 [facility] [place] [address] [place] [address] 11/24/2024 Ryan Gann Tinea unguium B35.1 ; [...] Treatment Pending Test Test Name Order Date 07279-NCYETNA NAIL, 6 OR MORE 02/15/2015 85279-JELEQCE NAIL, 6 OR MORE 04/19/2015 77711-FGBUVPH NAIL, 6 OR MORE 07/09/2015 68030-UINLVVJ NAIL, 6 OR MORE 10/11/2015 44164-BIQSXTN NAIL, 6 OR MORE 01/24/2016 87686-EMASGFN NAIL, 6 OR MORE 05/01/2016 71745-MIHLVAX NAIL, 6 OR MORE 07/31/2016 75848-UARMCUL NAIL, 6 OR MORE 01/01/2017 22602-HPJKQLU NAIL, 6 OR MORE 04/02/2017 50339-JDBTFGQ NAIL, 6 OR MORE 06/25/2017 94084-SEUHQEN NAIL, 6 OR MORE 09/24/2017 01103-BLFGWNZ NAIL, 6 OR MORE 01/04/2018 10883-YLOVIWX NAIL, 6 OR MORE 04/08/2018 68668-KLAWZPH NAIL, 6 OR MORE 07/08/2018 78297-RSIXZOT NAIL, 6 OR MORE 10/07/2018 52021-NKIRQOJ NAIL, 6 OR MORE 12/16/2018 91909-FVZIUGD NAIL, 6 OR MORE 03/07/2019 35449-PFHMENK NAIL, 6 OR MORE 05/16/2019 70507-CNJWSLA NAIL, 6 OR MORE 08/01/2019 30882-TSQNOVC NAIL, 6 OR MORE 10/03/2019 15808-MIFWIFG NAIL, 6 OR MORE 12/15/2019 58306-KADFLSS NAIL, 6 OR MORE 03/22/2020 33420-EEPYVQR NAIL, 6 OR MORE 05/31/2020 31845-WQDGYIR NAIL, 6 OR MORE 08/09/2020 12651-VOSCRPW NAIL, 6 OR MORE 11/08/2020 54687-QITRYVY NAIL, 6 OR MORE 01/17/2021 32396-VXGBBFU NAIL, 6 OR MORE 04/04/2021 54774-IKWQGIP NAIL, 6 OR MORE 06/13/2021 05583-XWDKFLR NAIL, 6 OR MORE 09/09/2021 04223-LDTQXAQ NAIL, 6 OR MORE 11/18/2021 77447-WWSVIRX NAIL, 6 OR MORE 02/06/2022 95322-RUMHFUG NAIL, 6 OR MORE 04/24/2022 56669-KNLXCTL NAIL, 6 OR MORE 09/08/2022 39383-IINNVQJ NAIL, 6 OR MORE 11/13/2022 11034-SLONYUF NAIL, 6 OR MORE 01/22/2023 71318-KWYHPAO NAIL, 6 OR MORE 04/23/2023 75058-PRSPJLQ NAIL, 6 OR MORE 07/13/2023 76582-TSSSYJB NAIL, 6 OR MORE 10/15/2023 11367-MQDNYRV NAIL, 6 OR MORE 01/14/2024 45562-QKVUBMM NAIL, 6 OR MORE 06/09/2024 94802-TGYDQBN NAIL, 6 OR MORE 09/08/2024 24540-AXEEOZH NAIL, 6 OR MORE 11/24/2024 27003-Tfok Destruction, -14 04/02/2017 26513-Yhax Destruction, -14 09/08/2024 91119-Xqrv Destruction, -06/09/2024 87791-Gvvt Destruction, 11-0701/14/2024 84218-Omgl Destruction, 11-0710/15/2023 04127-Ensx Destruction, 11-0707/13/2023 01171-Jjml Destruction, 11-0704/23/2023 54879-Prog Destruction, 11-0701/22/2023 07610-Ussj Destruction, 11-0711/13/2022 13317-Qjnn Destruction, 11-0709/08/2022 78806-Hxvd Destruction, 11-0704/24/2022 20189-Xtwe Destruction, 11-0702/06/2022 01779-Onvo Destruction, 11-0711/18/2021 19286-Mmtz Destruction, 11-0709/09/2021 92597-Spsl Destruction, 11-0706/13/2021 07615-Xpfv Destruction, 11-0704/04/2021 93488-Yzmr Destruction, 11-0701/17/2021 08887-Avvc Destruction, 11-0711/08/2020 45573-Iyal Destruction, 11-0708/09/2020 28894-Bbly Destruction, 11-0705/31/2020 62538-Pzkg Destruction, 11-0703/22/2020 73804-Ojsc Destruction, 11-0712/15/2019 54796-Jxpl Destruction, 11-0710/03/2019 52496-Tjkc Destruction, 11-0708/01/2019 54200-Pzxx Destruction, 11-0705/16/2019 53530-Mqvs Destruction, 11-0703/07/2019 13062-Eieo Destruction, 11-0712/16/2018 88280-Fnoi Destruction, 11-0710/07/2018 33261-Ozsg Destruction, 11-0707/08/2018 69795-Kqtq Destruction, 11-0704/08/2018 93285-Jnok Destruction, 11-0701/04/2018 50424-Cfeo Destruction, 11-0709/24/2017 51869-Ztea Destruction, 11-0706/25/2017 97057-Ueig Destruction, 11-0704/19/2015 40666-Bybu Destruction, 11-0710/11/2015 22560-Ifrq Destruction, 11-0707/09/2015 89753-Fzvy Destruction, 11-0702/15/2015 31995-Srpr Destruction, 11-0707/19/2012 98569-Crvs Destruction, 11-0703/06/2014 68856-Ltmnaxic Plate 02/15/2015 05302-Lzzvbuyt Plate 04/19/2015 17652-Dlnbvald Plate 07/09/2015 16807-Urdjvdux Plate 10/11/2015 45856-Nmtyuugl Plate 07/31/2016 58414-Yufhwbdj Plate 05/19/2016 34697-Ygjjrnaj Plate 03/22/2020 93839-Svjygxkn Plate Each Additional 01714-Hmsaatbt Plate Each Additional 19830-Dlczmmlg Plate Each Additional 85165-IIKD SKIN LESIONS, 2 TO 4 01/02/20 17 - Ganglion Cyst Injection/Aspiratio n 02/15/2015- Ganglion Cyst Injection/Aspiratio n 03/06/2014 Next Appt Details Provider Name:Ryan Gann , 03/02/2025 09:30:00 AM, [address] [place], [address], Insurance Providers Payer Name Payer Address Payer Phone Subscriber Number Group Number Insured Name Patient Relationship to Insured Coverage Start Date Coverage End Date [employer] [address] [place] [address] [phone] [id number] Hoa Aguilar Self - patient is the insured Medical (General) History Medical History History ICD Code Cholesterol high blood pressure measles chicken pox Surgical History Surgery Date(Month/Year) colonoscopy 01/05/2023 abscess Tooth 12/2021 2x root canal 2022 Hospitalization History Reason Date(Month/Year) [facility] [place] -[place] 2x c diff sameday from clindamyc in 09/2022
--- OUTSIDE RECORDS SUMMARY | 2025-02-27 10:50 | XMS_ITS ---
Author [facility] Address [address] [place] [address] Care Team Providers Care Racecar Driver Name Role Phone Yamileth Khoury MD Primary Care Provider UnavailRyan Valero Unavailable [phone] Allergies Allergen (clinical drug ingredient) Drug/Non Drug [...] Ordered Date Performed Result Body Sit e 59262-BDHSMSQ NAIL, 6 OR MORE 09/08/2024 N/A 39990-Cqcz Destruction, 1-14 09/08/2024 N/A Encounters Encounter Location Date Provider Diagnosis [facility] [address] [address] 09/08/2024 Ryan Gann Tinea unguium B35.1 ; [...] Treatment Pending Test Test Name Order Date 02597-ETQQMSF NAIL, 6 OR MORE 09/08/2024 98393-Aifi Destruction, 1-14 09/08/2024 Next Appt Details Follow Up: prn, Reason: Provider Name:Ryan V Azeem , 03/02/2025 09:30:00 AM, [address] [place], [address], Procedure Notes * Category Sub-Category Detail Notes Wart Treatment Procedure Verruca were deysi rided to pin-point bleeding margins with sterile 15 surgical blade, silver nitrate chemocautery applied, recomm. immune-boosting meds such as zinc, recomm. follow up with topical chemosurgical agents, recomm. Wartstick 40 percent Salicylic acid application under occlusion as directed, Pt defers any other forms of tx - 40830 Debride Nail 6-10 Nail debridement Performance o f this nail treatment by a nonprofessional would put this patients foot and overall health at risk. Therefore, debridement to affected nail(s), as described in exam, was performed extensively to reduce/remove overall nail length, girth, thickness, subungual debris, and necrotic tissue, by manual and/or electrical means through the use of a nail nipper and/or dremel-type thread grinder, to a more viable healthy nail plate or bed tissue 6-10. Silver nitrate used for any petechial bleeding as necessary. Definitive antifungal treatment options have been reviewed and discussed with the patient. The patient chooses, no pharmaceutical tx - 29288 Progress Notes * LAURENHoaDOB:[birth year] (74 yo F)Acc No.[id number]:09/08/2024 Progress Note Patient:?Hoa AGUILAR Provider:?Ryan Gann DPM :1950???Age:74 Y???Sex:Female D ate:09/08/2024 Address:[address] [place], [place] [address] Pcp:Yamileth Khoury MD Subjective: * Chief Complaints: [...] root canal 2022 * Hospitalization/Major Diagno stic Procedure:?[facility] [place] -[place] 2x c diff sameday from clindamycin [...] yes, walking. ?Marital status: . 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 * Medications:?TakingFamotidin e , Notes to Pharmacist: [...] - M79.672??? Plan: * Treatment: 2.?Plantar wart?Procedure: 16960-Pksl Destruction, 1-14 * Procedures:?Debride Nail 6-10:?Nail debridement?Performance of this nail treatment by a nonprofessional would put this patients foot and overall health at risk. Therefore, debridement to affected nail(s), as described in exam, was performed extensively to reduce/remove overall nail length, girth, thickness, subungual debris, and necrotic tissue, by manual and/or electrical means through the use of a nail nipper and/or dremel-type thread grinder, to a more viable healthy nail plate or bed tissue 6-10. Silver nitrate used for any petechial bleeding as necessary. Definitive antifungal treatment options have been reviewed and discussed with the patient. The patient chooses, no pharmaceutical tx - 25867.?Wart Treatment:?Procedure?Verruca were debrided to pin-point bleeding margins with sterile 15 surgical blade, silver nitrate chemocautery applied, recomm. immune-boosting meds such as zinc, recomm. follow up with topical chemosurgical agents, recomm. Wartstick 40 percent Salicylic acid application under occlusion as directed, Pt defers any other forms of tx - 97240.? * Procedure Codes:?43089 DEBRI DE NAIL, 6 OR MORE, Modifiers: XS 31632 Wart Destruction, 1-14, Modifiers: XS * Follow Up:?prn * Images: * Sign off status: Completed true * Provider:?Ryan Gann DPM Date:?2023 Generated for Ursula dsouza/Marisa/Maulik on:?02/27/2025 10:50 AM EDT History and Physical Notes * HPI [...]
--- OUTSIDE RECORDS SUMMARY | 2025-02-27 10:50 | XMS_ITS ---
Author Organization [facility] Address [address] [place] [address] Care Team Providers Care Sprinkler Driver Name Role Phone Yamileth Khoury MD Primary Care Provider UnavailRyan Valero Unavailable [phone] Allergies Allergen (clinical drug ingredient) Drug/Non Drug [...] Ordered Date Performed Result Body Sit e 71926-WFSIVJJ NAIL, 6 OR MORE 11/24/2024 N/A Encounters Encounter Location Date Provider Diagnosis [facility] [place] [address] [place] [address] 11/24/2024 Ryan Gann Tinea unguium B35.1 ; [...] Treatment Pending Test Test Name Order Date 68170-XYZVRZG NAIL, 6 OR MORE 11/24/2024 Next Appt Details Follow Up: prn, Reason: Provider Name:Ryan Gann , 03/02/2025 09:30:00 AM, [address] [place], [address], Procedure Notes * Category Sub-Category Detail Notes [...] use of a nail nipper and/or dremel-type knife setter grinder machine, to a more viable healthy nail plate [...] to maintain effectiveness in symptomatic relief - 34676 Progress Notes * LAUREN, JuddeanDOB:[birth year] (74 yo F)Acc No.[id number]:11/24/2024 Progress Note Patient:?Hoa AGUILAR Provider:?Ryan Gann DPM :1950???Age:74 Y???Sex:Female D ate:11/24/2024 Address:[address] [place], [place] [address] Pcp:Yamileth Khoury MD Subjective: * Chief Complaints: [...] root canal 2022 * Hospitalization/Major Diagno stic Procedure:?[facility] [place] 2x c diff sameday from clindamycin [...] walking. ?Marital status: . 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 ???Drug/Alcohol:?AUDIT-C (Standard)?Did you have a drink containing [...] use of a nail nipper and/or dremel-type knife setter grinder machine, to a more viable healthy nail plate [...] to maintain effectiveness in symptomatic relief - 17577.? * Procedure Codes:?88528 DEBRI DE NAIL, 6 OR MORE * Follow Up:?prn * Images: * Sign off status: Completed true * Provider:?Ryan Gann DPM Date:?2024 Generated for Ursula dsouza/Marisa/eTransmshankar on:?02/27/2025 10:50 AM EDT History and Physical [...]
--- OUTSIDE RECORDS SUMMARY | 2025-02-27 10:50 | XMS_ITS ---
Author Organization [facility] Address [address] [place] [address] Care Team Providers Care Repairer Switchgear Name Role Phone Yamileth Khoury MD Primary Care Provider Unavaila Ryan Roe Unavailable [phone] Allergies Allergen (clinical drug ingredient) Drug/Non Drug [...] Ordered Date Performed Result Body Sit e 44618-LLONLJP NAIL, 6 OR MORE 06/09/2024 N/A 88780-Fxnu Destruction, 1-14 06/09/2024 N/A Encounters Encounter Location Date Provider Diagnosis [facility] [address] [address] 06/09/2024 Ryan Gann Tinea unguium B35.1 ; [...] Treatment Pending Test Test Name Order Date 11061-VYDYNMH NAIL, 6 OR MORE 06/09/2024 40761-Xnob Destruction, 1-14 06/09/2024 Next Appt Details Follow Up: prn, Reason: Provider Name:Ryan V Azeem , 03/02/2025 09:30:00 AM, [address] [place], [address], Procedure Notes * Category Sub-Category Detail Notes Wart Treatment Procedure Verrucae(s) were debrided to pin-point bleeding margins with sterile surgical blade, silver nitrate chemocautery applied, recomm. immune-boosting meds such as zinc, recomm. follow up with topical chemosurgical agents, Pt STILL defers any other forms of tx (03128), CONT, recomm. Wartstick 40% Salicylic acid application [...] use of a nail nipper and/or dremel-type grinder watch parts, to a more viable healthy nail plate or bed tissue 6-10. Silver nitrate used for any petechial bleeding as necessary. Definitive antifungal treatment options have been reviewed and discussed with the patient. The patient chooses, no pharmaceutical tx (63956) Progress Notes * LAUREN, JuddeanDOB:[birth year] (74 yo F)Acc No.[id number]:06/09/2024 Progress Note Patient:?Hoa Aguilar Provider:?Ryan Gann DPM :1950???Age:74 Y???Sex:Female D ate:06/09/2024 Address:[address] [place], [place] [address] Pcp:Yamileth Khoury MD Subjective: * Chief Complaints: [...] root canal 2022 * Hospitalization/Major Diagno stic Procedure:?[facility] [place] -[place] 2x c diff sameday from clindamycin [...] walking. ?Marital status: . 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 * Medications:?TakingFamotidin e , Notes: pepcidFluticasone [...] - M79.672? Plan: * Treatment: 2.?Plantar wart?Procedure: 64537-Cwsv Destruction, 1-14 * Procedures:?Debride Nail 6-10:?Nail debridement?Performance of this nail treatment by a nonprofessional would put this patients foot and overall health at risk. Therefore, nail debridement was performed extensively to reduce/remove overall nail length, girth, thickness, subungual debris, and necrotic tissue, by manual and/or electrical means through the use of a nail nipper and/or dremel-type grinder watch parts, to a more viable healthy nail plate or bed tissue 6-10. Silver nitrate used for any petechial bleeding as necessary. Definitive antifungal treatment options have been reviewed and discussed with the patient. The patient chooses, no pharmaceutical tx (99715).?Wart Treatment:?Procedure?Verrucae(s) were debrided to pin-point bleeding margins with sterile surgical blade, silver nitrate chemocautery applied, recomm. immune-boosting meds such as zinc, recomm. follow up with topical chemosurgical agents, Pt STILL defers any other forms of tx (65987), CONT, recomm. Wartstick 40% Salicylic acid application under occlusion as directed.? * Procedure Codes:?10268 DEBRI DE NAIL, 6 OR MORE, Modifiers: XS 56346 Wart Destruction, 1-14, Modifiers: XS * Follow [...]
--- OUTSIDE RECORDS SUMMARY | 2025-02-27 10:51 | XMS_ITS | Patient Health Record ---
Author Organization [facility] Address [address] [place] [address] Care Team Providers Care Interlacer Name Role Phone Yamileth Khoury MD Primary Care Provider Bran Douglas Jr Unavailable Allergies Allergen (clinical drug ingredient) Drug/Non Drug Allergy documented on EMR Reaction Allergy Type Onset Date Status Sulfa Unknown Drug Allergy Active Reason For Referral No Information Medications Medication SIG (Take, Route, Frequency, Duration) Notes Start Date End Date Status Magnesium 250 MG 1 tablet with a meal Orally Once a day Active Vitamin D3 1000 UNIT 1 tablet Orally Onc e a day Active Simvastatin 20 MG 1 tablet in the even ing Orally Once a day Active ZyrTEC Allergy 10 MG 1 tablet Orally Onc e a day for 30 day(s) Active Flonase Allergy Relief 50 MCG/ACT 1 spray in each nostril Nasally Once a day for 30 day(s) Active Famotidine 20 MG Oral for 90 A ctive MiraLax (colon prep) 17 GM/SCOOP mixed with Gatorade or Crystal Light Orally begin at 5:00 p.m. the day before the procedure for 1 day 10/22/2022 Active Vancocin 125 MG as directed Orally 4 times daily for 10 days 02/26/2022 Active Olmesartan Medoxomil 20 MG 1 tablet Oral ly Once a day for 30 day(s) Active prednisoLONE Sodium Phosphate 1 % 1 drop into affected eye Ophthalmic as directed Active Biotin 2500 MCG 1 capsule Orally Onc e a day Active Osteo Bi-Flex Triple Strength - as directed Orally QD Active Immunizations Vaccine Route Administration Date Status Comme nts Influenza Unknown 09/13/2018 Administered Influenza Unknown 06/25/2020 Administered Influenza Unknown 06/25/2021 Administered Problems Problem Type SNOMED Code ICD Code Onset Dates Problem Status W/U Status Risk Notes Problem 511729734 Colon cancer screening (Z12.11) Active confirmed Problem 249780910 Long-term use of aspirin therapy (Z79.82) Active confirmed Problem 892516984 Abnormal CT scan , sigmoid colon (R93.3) Active confirmed Problem 31339191 Diarrhea, unspecified type (R19.7) Active confirmed Problem 99973687 Irritable bowel syndrome with both constipation and diarrhea (K58.2) Active confirmed Problem 85690212 Change in bowel function (R19.8) Active confirmed Problem 789824223 Clostridioides difficile infection (A49.8) Active confirmed Plan Of Treatment Pending Test Test Name Order Date BUN 10/14/2022 CREATININE 10/14/2022 LIVER PROFILE 10/14/2022 LIPASE 10/14/2022 CBC w/o DIFF 10/14/2022 STOOL WBC 02/25/2022 STOOL WBC 04/28/2022 OVA & PARASITES (O&P) 02/25/2022 CT ABD & PELVIS WITH CONTRAST 10/14/2022 STOOL WBC 04/24/2022 C DIFFICILE RFLX PCR 04/24/2022 CDiff Gene PCR 02/25/2022 GI PANEL 04/24/2022 Future Test Test Name Order Date COLONOSCOPY 10/14/2012 COLONOSCOPY 11/11/2018 COLONOSCOPY 10/22/2022 Insurance Providers Payer Name Payer Address Payer Phone Subscriber Number Group Number Insured Name Patient Relationship to Insured Coverage Start Date Coverage End Date [facility] [address] [place] [phone] [id number] GIFTY BLACKMAN Self - patient is the insured Medical (General) History Medical History History ICD Code hypertension Colon polyps, last colonosco py 2018, limited to 25 cm, followup CT colonoscopy negative. elevated cholesterol environmental allergies Surgical History Surgery Date(Month/Year) hysterectomy for benign ovarian cysts CHOLECYSTECTOMY 08/30/2012 BOWEL RESECTION FOR OBSTRUCTION 1990 CARPAL TUNNEL SURGERY ON RIGHT HAND cataract-lens implants-both eyes cornea resection left and right
== END 2025-02-27 10:57 | disposition home or self-care (01) ==
PROVIDERS: PCP Internal Medicine; Visit Provider Internal Medicine
DX: L50.9 Urticaria, unspecified (principal)

== ENCOUNTER → 2025-02-27 09:45 | Outpatient (BNVA) | payer MEDICARE, SELFPAY | PROVIDERS: PCP Internal Medicine; Visit Provider Internal Medicine | DX: L50.9 Urticaria, unspecified (principal) | CPT/HCPCS: 99212 ==

== ENCOUNTER 2025-04-24 12:14 | Outpatient (AMB) | payer MEDICARE, SELFPAY ==
[2025-04-24 12:21] VITALS: BP 138/78; PULSE 94; TEMP 36.8; O2SAT 98; BMI 26.7
--- NOTE | 2025-04-24 12:21 | A.OFFPC_ITS ---
Vital Signs 04/24/25 12:21 Height 5 ft 3 in Weight 151 lb BMI 26.7 BP 138/78 Blood Pressure Location Lt brachial Position Sitting Pulse 94 Pulse Source Pulse Oximeter Temp 98.2 F Temp Source Oral Pulse Oximetry (%) 98 Oxygen Delivery Method Room Air Intake Visit Reasons: Bump on right upper thigh Intake Note: Pt is here today for a sick visit. Pt c/o lump on the R upper thigh. Allergies Sulfa (Sulfonamide Antibiotics) (SULFA (SULFONAMIDE ANTIBIOTICS)) Allergy (Mild, Verified 04/24/25 12:24) RASH clindamycin Adverse Reaction (Intermediate, Verified 04/24/25 12:24) Diarrhea amlodipine Adverse Reaction (Unknown, Verified 04/24/25 12:24) edema ENVIRONMENTAL Allergy (Intermediate, Uncoded 04/24/25 12:24) ITCHY EYES/SINUS SULFA Allergy (Unknown, Uncoded 04/24/25 12:24) unknown Medication List - Last Reconciled 04/24/25 by Yamileth Khoury MD Bifidobacterium infantis (Align (B.infantis)) 4 mg PO DAILY biotin 2,500 mcg PO DAILY cetirizine (Zyrtec) 10 mg PO DAILY PRN cholecalciferol (vitamin D3) 25 mcg PO DAILY famotidine (Pepcid AC) 20 mg PO BEDTIME fluticasone furoate 27.5 mcg/actuation (Flonase Sensimist) 1 spray intranasal DAILY PRN pwwivmce-aahz-rct6-C-mj-bosw 750 mg-644 mg- 30 mg-1 mg (Osteo Bi-Flex Triple Strength) 2 tabs PO DAILY magnesium 250 mg PO DAILY olmesartan 20 mg PO DAILY omeprazole 20 mg PO DAILY prednisolone acetate 1% 1 drp ophthalmic (eye) .QD simvastatin 20 mg PO QPM Tobacco use date assessed: 04/24/25 Fall risk assessment: No Falls in past year Last assessed Fall Risk: 04/24/25 Dental Screening Dental Screen Date: 04/24/25 Did you have a dental visit in the last 12 months?: Yes Did you have a dental problem in the last 6 months where you did not have access to dental care?: No Was dental information given to patient?: Patient has dentist HPI Bump on right upper thigh HPI Details Patient presents reporting a skin growth on the right inner thigh present for years but patient thinks it may be getting slightly bigger. She denies any pain or injury in the area. Hypertension hyperlipidemia are controlled on current medications. patient reports episodes of chronic GERD and occasionally feeling regurgitation of the food after eating dinner. She denies odynophagia. Patient has been taking famotidine regularly with some relief. She has been following anti GERD diet and trying not to eat 3 hours before going to bed [facility] Medical History GERD (gastroesophageal reflux disease) Vitamin D deficiency Osteopenia Annual physical exam Postmenopausal Neutropenia Hyperlipidemia History of mammogram Syncope HTN (hypertension) Surgical History Status post corneal transplant S/P ELIZABETH-BSO H/O colonoscopy Family History Father Cancer Mother CHF (congestive heart failure) CVD (cardiovascular disease) Social History Housing: House Alcohol intake: current Alcohol intake frequency: holidays/special occasions only Alcohol type: wine and hard liquor Patient Tobacco Use Status: Never used Tobacco e-Cigarette/Vaping Use: Never Used service: No Current occupational status: retired Cognitive needs: No Hearing needs: No Vision needs: Yes Questionnaire PHQ-9 Over the last 2 weeks, how often have you been bothered by any of the following problems? 1. Little interest or pleasure in doing things: not at all 2. Feeling down, depressed, or hopeless: not at all 3. Trouble falling or staying asleep, or sleeping too much: not at all 4. Feeling tired or having little energy: not at all 5. Poor appetite or overeating: not at all 6. Feeling bad about yourself - or that you are a failure or have let yourself or your family down: not at all 7. Trouble concentrating on things, such as reading the newspaper or watching television: not at all 8. Moving or speaking so slowly that other people could have noticed. Or the opposite - being so fidgety or restless that you have been moving around a lot more than usual: not at all 9. Thoughts that you would be better off or of hurting yourself in some way: not at all Total score: 0 Depression Screening Interpretation: Negative Depression Screening Done: Yes 36074 - PHQ-9 Billing: Yes Source: Developed by Drs. Kareem Stinson, Ryann Morrison, Amanuel aC and colleagues, with an educational zafar from [employer]. Thrive Questionnaire Date Thrive assessed: 04/17/25 I am a: Patient What is your living situation today?: I have a steady place to live Within the past 12 months, did the food you bought not last and you didn't have the money to get more?: Never true Within the past 12 months, did you worry whether your food would run out before you got money to buy more?: Never true Do you have trouble paying for medicines?: No Do you have trouble getting transportation to medical appointments?: No Do you have trouble paying your heating and electricity bill?: No Do you have trouble taking care of your child, family member or friend?: No Do you have trouble with day-to-day activities such as bathing, preparing meals, shopping, managing finances, etc.?: No Are you currently unemployed and looking for a job?: No Are you interested in more education?: No Please select the resources that you would like help with: None Currently or been in a relationship where the following occur: No concerns reported THRIVE Score: 0 AUDIT C Alcohol Use Questionnaire (AUDIT-C) 1. How often do you have a drink containing alcohol?: 2-4 times a month 2. How many drinks containing alcohol do you have on a typical day when you are drinking?: 1 or 2 3. How often do you have six or more drinks on one occasion?: Never Total Score: 2 DEANGELO-7 AMB Questionnaire DEANGELO-7 Date DEANGELO - 7 assessed: 02/08/23 Feeling nervous, anxious, or on edge: 0 = Not at all Not being able to stop or control worryin = Not at all Worrying too much about different things: 0 = Not at all Trouble relaxin = Not at all Being so restless that it is hard to sit still: 0 = Not at all Becoming easily annoyed or irritable: 0 = Not at all Feeling afraid as if something awful might happen: 0 = Not at all Total DEANGELO-7 score (0-4 normal; 5-9 mild; 10-14 moderate; 15-21 severe): 0 Source: Developed by Drs. Kareem Stinson, Ryann Morrison, Amanuel Ca and colleagues, with an educational zafar from [employer]. Review of Systems Const All systems reviewed & are unremarkable except as noted in HPI and below ENT Reports no additional complaints Card Reports no additional complaints Resp Reports no additional complaints GI Reports no additional complaints Reports no additional complaints Physical exam (Primary Care) Vital Signs: Last Vital Signs Temp 98.2 F 04/24/25 12:21 Pulse 94 04/24/25 12:21 BP 138/78 04/24/25 12:21 Pulse Ox 98 04/24/25 12:21 Oxygen Delivery Method Room Air 04/24/25 12:21 BMI result Body Mass Index 26.7 Tobacco/Smoking Status: Tobacco use Status Tobacco use date assessed 04/24/25 04/24/25 12:29 Patient Tobacco Use Status Never used Tobacco 04/24/25 12:29 e-Cigarette/Vaping Use Never Used 04/24/25 12:22 PHQ-9: PHQ-9 Score PHQ-9: Total score 0 04/24/25 13:07 Depression Screening Interpretation: Negative Thrive Assessment: Date of Thrive Assessment Date Thrive assessed 04/17/25 04/24/25 12:22 Currently or been in a relationship where the following occur: No concerns reported Const General: no acute distress HENMT Head: Yes normal to inspection Neck Neck: Yes supple Resp Effort & Inspection: normal respiratory effort Auscultation: clear to auscultation bilaterally Cardio Rhythm: regular rhythm Heart sounds: S1 normal heart sound present and S2 normal heart sound present GI Inspection: Yes normal to inspection Palpation (GI): Soft to palpation Percussion: Yes normal to percussion Auscultation: normal bowel sounds Skin Other: Subcutaneous soft mobile right upper inner thigh about 10 cm mass, not tender Coding Level of Care Code Est Pt Level 4 (55224) Complex EM visit Add On G2211 Diagnoses GERD (gastroesophageal reflux disease) K21.9 Lipoma D17.9 Additional Codes PHQ-9 - 51934 - PHQ-9 Billing: Yes ([id number]) Assessment & Plan Assessment & Plan (1) GERD (gastroesophageal reflux disease): Code(s): K21.9 - Gastro-esophageal reflux disease without esophagitis Category: Medical Plan: For chronic GERD symptoms obtain barium swallow to evaluate for height no hernia or esophageal dysmotility. Change famotidine to omeprazole for 30 days and follow-up (2) Lipoma: Comment: Right inner thigh Code(s): D17.9 - Benign lipomatous neoplasm, unspecified Category: Medical Plan: Patient declined referral to a surgeon. She will continue to monitor for any increase in size and symptoms of pain or tenderness Orders: Orders FL upper GI w Ba Swallow Today K21.9 - Gastro-esophageal reflux disease without esophagitis, R13.10 - Dysphagia, unspecified Medications: New omeprazole 20 mg PO DAILY 90 caps 0RF Discontinued famotidine (Pepcid AC) Discontinued Reason: Duplicate 20 mg PO BEDTIME 90 tabs 3RF
--- OUTSIDE RECORDS SUMMARY | 2025-04-24 13:15 | XMS_ITS | Patient Health Record ---
Author Organization [facility] Address [address] [place] [address] Care Team Providers Care Bull Fiddle Player Name Role Phone Yamileth Khoury MD Primary Care Provider Ryan Sanchez Unavailable [phone] Allergies Allergen (clinical drug ingredient) Drug/Non Drug Allergy documented on EMR Reaction Allergy Type Onset Date Status sulfamethoxazole / trimethoprim Bactrim Unknown Drug Allergy Active clindamycin Clindamycin HCl Cdiff Drug Allergy Active Adhesive rash Allergy Active Reason For Referral No Information Medications Medication SIG (Take, Route, Frequency, Duration) Notes Start Date End Date Status amLODIPine Besylate 2.5 MG Orally Not-Taking Famotidine pepcid Active hydroCHLOROthiazide 12.5 MG 1 capsule Or ally Once a day; Duration: 30 day(s) Not-Taking Ilevro Not-Taking Magnesium 500 MG 1 tablet with a meal Orally Once a day; Duration: 30 day(s) Active Calcium 500-125 MG-UNIT 1 tablet with fo od Orally Once a day; Duration: 30 day(s) Not-Taking Fluticasone Propionate HFA 44 MCG/ACT 1 puff Inhalation Twice a day Active Lisinopril 10 MG 1 tablet Orally Once a day Not-Taking Olmesartan Medoxomil Active prednisoLONE Active Vitamin D 1000 UNIT 1 tablet Orally Once a day; Duration: 30 day(s) Active Simvastatin 20 MG 1 tablet in the evening Orally Once a day; Duration: 30 day(s) Active Moxifloxacin HCl 1 drop into affected eye Ophthalmic Not-Taking Aspirin 81 MG 1 tablet Orally Once a day; Duration: 30 day(s) Not-Taking Immunizations Vaccine Route Administration Date Status Comme nts COVID-19 Moderna Vaccine Unknown 09/10/2021 Administered 1st [...] W/U Status Risk Notes Problem Tinea unguium (B35.1) Active confirmed Vital Signs Blood pressure diastolic 78 mm Hg 03/02/2025 Height 5ft 4in in 03/02/2025 Blood pressure systolic 122 mm Hg 03/02/2025 Weight 150 lbs 03/02/2025 BMI 25.74 kg/m2 03/02/2025 Procedures Procedure Date Ordered Date Performed Result Body Sit e 02370-WCCDIDS NAIL, 6 OR MORE 06/09/2024 N/A 81528-Flzv Destruction, 1-06/09/2024 N/A 64205-XJYOXCX NAIL, 6 OR MORE 09/08/2024 N/A 85041-Xhah Destruction, 1-14 09/08/2024 N/A 99007-SCEIFHT NAIL, 6 OR MORE 11/24/2024 N/A 27377-EAZYWSW NAIL, 6 OR MORE 03/02/2025 N/A Encounters Encounter Location Date Provider Diagnosis [facility] [address] [address] 06/09/2024 Ryan Azeem Tinea unguium B35.1 ; Plantar wart B07.0 ; Pain in right toe(s) M79.674 ; Pain in left toe(s) M79.675 and Pain in left foot M79.672 [facility] [address] 09/08/2024 Ryan Azeem Tinea unguium B35.1 ; Plantar wart B07.0 ; Pain in right toe(s) M79.674 ; Pain in left toe(s) M79.675 and Pain in left foot M79.[address] [address] 11/24/2024 Ryan Azeem Tinea unguium B35.1 ; Pain in right toe(s) M79.674 and Pain in left toe(s) M79.[address] [address] 03/02/2025 Ryan Azeem Tinea unguium B35.1 ; Pain in right [...] Pain in right toe(s) (ICD-10 - M79.674) 03/02/2025 Tinea unguium (ICD-10 - B35.1) 03/02/2025 Pain in right toe(s) (ICD-10 - M79.674) 03/02/2025 Pain in left toe(s) (ICD-10 - M79.675) 11/24/2024 Pain in left toe(s) (ICD-10 - [...] Treatment Pending Test Test Name Order Date 08093-CDLRBNJ NAIL, 6 OR MORE 02/15/2015 24431-MXSLULL NAIL, 6 OR MORE 04/19/2015 19765-DDWGQIA NAIL, 6 OR MORE 07/09/2015 91610-VJQNJSQ NAIL, 6 OR MORE 10/11/2015 22189-FGIINTS NAIL, 6 OR MORE 01/24/2016 17390-OBAGTFD NAIL, 6 OR MORE 05/01/2016 91007-ZOCSACI NAIL, 6 OR MORE 07/31/2016 42199-QQFRCQC NAIL, 6 OR MORE 01/01/2017 00642-ISRUESR NAIL, 6 OR MORE 04/02/2017 61563-RUEGUWB NAIL, 6 OR MORE 06/25/2017 18600-ZANRRMU NAIL, 6 OR MORE 09/24/2017 72642-UULTTYS NAIL, 6 OR MORE 01/04/2018 32795-YQYMIKH NAIL, 6 OR MORE 04/08/2018 12149-TWACISE NAIL, 6 OR MORE 07/08/2018 35193-LCMEETF NAIL, 6 OR MORE 10/07/2018 53214-BNNPVDF NAIL, 6 OR MORE 12/16/2018 72001-YXQZAEU NAIL, 6 OR MORE 03/07/2019 86354-PPTSCMX NAIL, 6 OR MORE 05/16/2019 30633-CMUEACL NAIL, 6 OR MORE 08/01/2019 56241-FPIOOQP NAIL, 6 OR MORE 10/03/2019 84467-IIOGQNV NAIL, 6 OR MORE 12/15/2019 59152-MYKLEKW NAIL, 6 OR MORE 03/22/2020 02875-LCHEMBP NAIL, 6 OR MORE 05/31/2020 21012-TTOHBJS NAIL, 6 OR MORE 08/09/2020 85942-OMQIWVT NAIL, 6 OR MORE 11/08/2020 33882-FKMEYKV NAIL, 6 OR MORE 01/17/2021 69086-ZFGQOHH NAIL, 6 OR MORE 04/04/2021 28328-QTERCQK NAIL, 6 OR MORE 06/13/2021 85268-SDKFVPY NAIL, 6 OR MORE 09/09/2021 98235-YITBKSK NAIL, 6 OR MORE 11/18/2021 72429-HXIRNKM NAIL, 6 OR MORE 02/06/2022 74288-YDHDCHV NAIL, 6 OR MORE 04/24/2022 52054-WQOSCAP NAIL, 6 OR MORE 09/08/2022 73268-IANZONA NAIL, 6 OR MORE 11/13/2022 51337-OBTGOQI NAIL, 6 OR MORE 01/22/2023 39698-LZMZCWN NAIL, 6 OR MORE 04/23/2023 64847-EGBATYA NAIL, 6 OR MORE 07/13/2023 51084-MFKGASH NAIL, 6 OR MORE 10/15/2023 33644-OAFUCMC NAIL, 6 OR MORE 01/14/2024 10089-VFSPYRD NAIL, 6 OR MORE 06/09/2024 18992-DBWJWRT NAIL, 6 OR MORE 09/08/2024 77395-HBIBOIY NAIL, 6 OR MORE 11/24/2024 64068-XWMBJIX NAIL, 6 OR MORE 03/02/2025 45394-Qkde Destruction, -14 09/08/2024 87028-Elof Destruction, -14 06/09/2024 40871-Dwoe Destruction, -14 01/14/2024 05926-Pguy Destruction, -14 04/02/2017 37474-Rczb Destruction, -14 10/15/2023 23414-Lwfp Destruction, -14 07/13/2023 20260-Mjag Destruction, -14 04/23/2023 24987-Mfxx Destruction, -14 01/22/2023 75557-Lvki Destruction, -14 11/13/2022 57310-Joee Destruction, -14 09/08/2022 04782-Ngly Destruction, -14 04/24/2022 12224-Mdie Destruction, -14 02/06/2022 41647-Auoe Destruction, -14 11/18/2021 91056-Jktm Destruction, -14 09/09/2021 81795-Vjsr Destruction, -14 06/13/2021 24072-Hoaw Destruction, -14 04/04/2021 76781-Ndxr Destruction, -14 01/17/2021 44574-Bjwg Destruction, 11-0711/08/2020 88139-Vlzw Destruction, 11-0708/09/2020 75018-Utyc Destruction, 11-0705/31/2020 39254-Xuzu Destruction, 11-0703/22/2020 40123-Qxiw Destruction, 11-0712/15/2019 95960-Scxa Destruction, 11-0710/03/2019 89668-Yoyt Destruction, 11-0708/01/2019 55013-Xhki Destruction, 11-0705/16/2019 91777-Diyh Destruction, 11-0703/07/2019 33725-Ucvc Destruction, 11-0712/16/2018 99728-Zifu Destruction, 11-0710/07/2018 08338-Xqmf Destruction, 11-0707/08/2018 32672-Pzgn Destruction, 11-0704/08/2018 99711-Aiif Destruction, 11-0701/04/2018 86256-Xjds Destruction, 11-0709/24/2017 99395-Pbje Destruction, 11-0706/25/2017 86593-Taex Destruction, 11-0704/19/2015 10692-Zenv Destruction, 11-0710/11/2015 96640-Ahky Destruction, 11-0707/09/2015 03612-Yfun Destruction, 11-0702/15/2015 15086-Nnwn Destruction, 11-0707/19/2012 71109-Zjnr Destruction, 11-0703/06/2014 46764-Luvyadhi Plate 02/15/2015 61221-Vlpomvfp Plate 04/19/2015 30281-Htcnrmdc Plate 07/09/2015 28040-Vwxxspus Plate 10/11/2015 04185-Hopvajqd Plate 07/31/2016 22882-Jwkdfios Plate 05/19/2016 17753-Osrsuigj Plate 03/22/2020 86654-Txtivapy Plate Each Additional 24241-Nbvokibf Plate Each Additional 26193-Ionyuoyo Plate Each Additional 81572-ITPS SKIN LESIONS, 2 TO 4 01/02/20- Ganglion Cyst Injection/Aspiratio n 02/15/2015- Ganglion Cyst Injection/Aspiratio n 03/06/2014 Next Appt Details Provider Name:Ryan Gann , 06/01/2025 10:45:00 AM, [address] [facility], [place], [address], Insurance Providers Payer Name Payer Address Payer Phone Subscriber Number Group Number Insured Name Patient Relationship to Insured Coverage Start Date Coverage End Date [employer] [address] [place] [address] [id number] Hoa Aguilar Self - patient is the insured 4 Medical (General) History Medical History History ICD Code Cholesterol high blood pressure measles chicken pox Surgical History Surgery Date(Month/Year) colonoscopy 01/05/2023 abscess Tooth 12/2021 2x root canal 2022 Hospitalization History Reason Date(Month/Year) [facility] -[facility] 2x c diff sameday from [facility] in 09/2022
--- OUTSIDE RECORDS SUMMARY | 2025-04-24 13:15 | XMS_ITS | Patient Health Record ---
Author Organization [facility] Address [address] [place] [address] Care Team Providers Care Aerial Tram Operator Name Role Phone Yamileth Khoury MD [...] Problem Status W/U Status Risk Notes Problem 300686019 Colon cancer screening (Z12.11) Active confirmed Problem 051214913 Long-term use of aspirin therapy (Z79.82) Active confirmed Problem 717994500 Abnormal CT scan , sigmoid colon (R93.3) Active confirmed Problem 55401814 Diarrhea, unspecified type (R19.7) Active confirmed Problem 50570676 Irritable bowel syndrome with both constipation and diarrhea (K58.2) Active confirmed Problem 11382779 Change in bowel function (R19.8) Active confirmed Problem 447431987 Clostridioides difficile infection (A49.8) Active confirmed Plan [...] Insured Coverage Start Date Coverage End Date [facility] [address] [place] [phone] [id number] GIFTY BLACKMAN Self - patient is the [...]
== END 2025-04-24 12:50 | disposition home or self-care (01) ==
LOC: HO.HMCC 12:15
PROVIDERS: PCP Internal Medicine; Visit Provider Internal Medicine
DX: K21.9 Gastro-esophageal reflux disease without esophagitis (principal); D17.9 Benign lipomatous neoplasm, unspecified

== ENCOUNTER → 2025-04-24 12:14 | Outpatient (BNVA) | payer MEDICARE, SELFPAY | PROVIDERS: PCP Internal Medicine; Visit Provider Internal Medicine | DX: I10 Essential (primary) hypertension (principal); E78.5 Hyperlipidemia, unspecified; K21.9 Gastro-esophageal reflux disease without esophagitis; D17.9 Benign lipomatous neoplasm, unspecified; R13.10 Dysphagia, unspecified; Z79.899 Other long term (current) drug therapy | CPT/HCPCS: 96127; 99212 ==

== ENCOUNTER 2025-05-10 09:58 | Outpatient (AMB) | payer MEDICARE, SELFPAY ==
--- OUTSIDE RECORDS SUMMARY | 2025-05-10 10:23 | XMS_ITS | Patient Health Record ---
Author Organization [facility] Address [address] [place] [address] Care Team Providers Care Finish Molder Name Role Phone Yamileth Khoury MD Primary [...] Problem Status W/U Status Risk Notes Problem 114347661 Colon cancer screening (Z12.11) Active confirmed Problem 794818314 Long-term use of aspirin therapy (Z79.82) Active confirmed Problem 334132749 Abnormal CT scan , sigmoid colon (R93.3) Active confirmed Problem 52223434 Diarrhea, unspecified type (R19.7) Active confirmed Problem 23767040 Irritable bowel syndrome with both constipation and diarrhea (K58.2) Active confirmed Problem 57128326 Change in bowel function (R19.8) Active confirmed Problem 181895352 Clostridioides difficile infection (A49.8) Active confirmed Plan [...] Insured Coverage Start Date Coverage End Date [facility] [address] [place] [phone] [id number] GIFTY BLACKMAN Self - patient is the [...]
--- OUTSIDE RECORDS SUMMARY | 2025-05-10 10:23 | XMS_ITS | Patient Health Record ---
Author Organization [facility] Address [address] [place] [address] Care Team Providers Care Mixer Operator Vacuum Pan Salt Name Role Phone Yamileth Khoury MD Primary Care Provider Ryan Sanchez Unavailable [phone] Allergies Allergen (clinical drug ingredient) Drug/Non Drug [...] Ordered Date Performed Result Body Sit e 64877-VRYDXKS NAIL, 6 OR MORE 06/09/2024 N/A 41976-Mtpf Destruction, 1-06/09/2024 N/A 85277-PAXPOZP NAIL, 6 OR MORE 09/08/2024 N/A 48358-Yfbl Destruction, 1-14 09/08/2024 N/A 86021-YQPSIWJ NAIL, 6 OR MORE 11/24/2024 N/A 63742-BANFSCK NAIL, 6 OR MORE 03/02/2025 N/A Encounters Encounter Location Date Provider Diagnosis [facility] [address] [address] 06/09/2024 Ryan Azeem Tinea unguium B35.1 ; Plantar wart B07.0 ; Pain in right toe(s) M79.674 ; Pain in left toe(s) M79.675 and Pain in left foot M79.[address] [facility] [address] 09/08/2024 Ryan Azeem Tinea unguium B35.1 ; Plantar wart B07.0 ; Pain in right toe(s) M79.674 ; Pain in left toe(s) M79.675 and Pain in left foot M79.[address] [address] 11/24/2024 Ryan Azeem Tinea unguium B35.1 ; Pain in right toe(s) M79.674 and Pain in left toe(s) M79.[address] [address] 03/02/2025 Ryan Azeem Tinea unguium B35.1 ; [...] Treatment Pending Test Test Name Order Date 04860-FRLTZYV NAIL, 6 OR MORE 02/15/2015 48411-ACNAAQS NAIL, 6 OR MORE 04/19/2015 27026-PVSLCCF NAIL, 6 OR MORE 07/09/2015 12624-LWDHSTZ NAIL, 6 OR MORE 10/11/2015 75138-EVSTYKF NAIL, 6 OR MORE 01/24/2016 84215-FXKHGKB NAIL, 6 OR MORE 05/01/2016 53406-DZGLPJR NAIL, 6 OR MORE 07/31/2016 39996-CHBMFKQ NAIL, 6 OR MORE 01/01/2017 85363-AISHQTN NAIL, 6 OR MORE 04/02/2017 83273-YAQIHGN NAIL, 6 OR MORE 06/25/2017 09549-EBBKASO NAIL, 6 OR MORE 09/24/2017 81123-WJOKNZX NAIL, 6 OR MORE 01/04/2018 11415-KYJWQMO NAIL, 6 OR MORE 04/08/2018 09195-IFSJORO NAIL, 6 OR MORE 07/08/2018 36496-HQOLQTK NAIL, 6 OR MORE 10/07/2018 50030-BTHHSGH NAIL, 6 OR MORE 12/16/2018 44098-YKJTYVW NAIL, 6 OR MORE 03/07/2019 24964-ZYJCFAG NAIL, 6 OR MORE 05/16/2019 83252-XNKALCR NAIL, 6 OR MORE 08/01/2019 64542-SLBSMWR NAIL, 6 OR MORE 10/03/2019 21507-GSDDDRU NAIL, 6 OR MORE 12/15/2019 75347-KGNLDAI NAIL, 6 OR MORE 03/22/2020 24568-VLJOTVJ NAIL, 6 OR MORE 05/31/2020 53417-CNQUTJH NAIL, 6 OR MORE 08/09/2020 86612-WYOZCYX NAIL, 6 OR MORE 11/08/2020 49390-WGKTGYW NAIL, 6 OR MORE 01/17/2021 50504-HQDJYEC NAIL, 6 OR MORE 04/04/2021 30426-PHRKGZN NAIL, 6 OR MORE 06/13/2021 73640-ORRNSRF NAIL, 6 OR MORE 09/09/2021 51260-NGWSHPV NAIL, 6 OR MORE 11/18/2021 36762-KQPXITL NAIL, 6 OR MORE 02/06/2022 41266-VUBWKZV NAIL, 6 OR MORE 04/24/2022 43075-FDAOQLA NAIL, 6 OR MORE 09/08/2022 64063-CGAWHCD NAIL, 6 OR MORE 11/13/2022 67708-ADHPBXA NAIL, 6 OR MORE 01/22/2023 40803-EHACMCD NAIL, 6 OR MORE 04/23/2023 17679-KPPWWMA NAIL, 6 OR MORE 07/13/2023 47718-PKFUZCY NAIL, 6 OR MORE 10/15/2023 24601-KMUESUC NAIL, 6 OR MORE 01/14/2024 17411-SHMQCXB NAIL, 6 OR MORE 06/09/2024 80706-RHASDPW NAIL, 6 OR MORE 09/08/2024 40931-BSIRPQX NAIL, 6 OR MORE 11/24/2024 50531-MJLZXVA NAIL, 6 OR MORE 03/02/2025 75035-Mrxr Destruction, -14 09/08/2024 80335-Zejv Destruction, -14 06/09/2024 66308-Wfue Destruction, -14 01/14/2024 78954-Ymzz Destruction, -14 04/02/2017 74438-Gtmd Destruction, -14 10/15/2023 48739-Brgo Destruction, -14 07/13/2023 64657-Ritd Destruction, -14 04/23/2023 54012-Zdoq Destruction, -14 01/22/2023 89729-Hndu Destruction, -14 11/13/2022 48653-Hjke Destruction, -14 09/08/2022 18490-Tgwo Destruction, -14 04/24/2022 59682-Umit Destruction, -14 02/06/2022 01115-Ezvp Destruction, -14 11/18/2021 48945-Ltzd Destruction, -14 09/09/2021 91700-Eqzx Destruction, -14 06/13/2021 62773-Lxqg Destruction, -14 04/04/2021 67266-Fggs Destruction, -14 01/17/2021 92811-Syvh Destruction, 11-0711/08/2020 62144-Vkif Destruction, 11-0708/09/2020 08324-Jyce Destruction, 11-0705/31/2020 61580-Ufem Destruction, 11-0703/22/2020 56974-Blgg Destruction, 11-0712/15/2019 80740-Zbbx Destruction, 11-0710/03/2019 39236-Qpvt Destruction, 11-0708/01/2019 33936-Uljf Destruction, 11-0705/16/2019 39537-Arqp Destruction, 11-0703/07/2019 48623-Ervn Destruction, 11-0712/16/2018 03023-Moes Destruction, 11-0710/07/2018 27745-Lftg Destruction, 11-0707/08/2018 13844-Wcmx Destruction, 11-0704/08/2018 94578-Ecgu Destruction, 11-0701/04/2018 75767-Rxsg Destruction, 11-0709/24/2017 14170-Cijj Destruction, 11-0706/25/2017 69221-Bgit Destruction, 11-0704/19/2015 15416-Pzjf Destruction, 11-0710/11/2015 63633-Zjhl Destruction, 11-0707/09/2015 51938-Idmy Destruction, 11-0702/15/2015 13601-Khpk Destruction, 11-0707/19/2012 52205-Rcjj Destruction, 11-0703/06/2014 02649-Snpstkpy Plate 02/15/2015 59467-Prcmgdvv Plate 04/19/2015 01613-Bieqtfcj Plate 07/09/2015 60867-Rqsrqrit Plate 10/11/2015 58991-Iiggaixl Plate 07/31/2016 95754-Rwgdwpqy Plate 05/19/2016 57384-Wmpjiqof Plate 03/22/2020 99407-Asahyquz Plate Each Additional 04227-Lidlqgot Plate Each Additional 01984-Khdtumkn Plate Each Additional 88732-IXAD SKIN LESIONS, 2 TO 4 01/02/20- Ganglion Cyst Injection/Aspiratio n 02/15/2015- Ganglion Cyst Injection/Aspiratio n 03/06/2014 Next Appt Details Provider Name:Ryan Gann , 06/01/2025 10:45:00 AM, [address] [facility], [place], [address], Insurance Providers Payer Name Payer Address Payer Phone Subscriber Number Group Number Insured Name Patient Relationship to Insured Coverage Start Date Coverage End Date [employer]vantage [address] [place] [address] [phone] [id number] Hoa Aguilar Self - patient is the insured 4 Medical (General) History Medical History History ICD Code Cholesterol high blood pressure measles chicken pox Surgical History Surgery Date(Month/Year) colonoscopy 01/05/2023 abscess Tooth 12/2021 2x root canal 2022 Hospitalization History Reason Date(Month/Year) [facility] -[facility] 2x c diff sameday from [facility] in 09/2022
[2025-05-10 10:31] VITALS: BP 144/70; PULSE 88; TEMP 36.7; O2SAT 98; BMI 25.9
--- NOTE | 2025-05-10 10:31 | AM.OFFWIN_ITS ---
Intake Vital Signs 05/10/25 10:31 Height 5 ft 3 in Weight 146 lb BMI 25.9 BP 144/70 H Blood Pressure Location Lt brachial Position Sitting Pulse 88 Pulse Source Pulse Oximeter Temp 98.1 F Temp Source Oral Pulse Oximetry (%) 98 Oxygen Delivery Method Room Air Intake Visit Reasons: EP Bug bite lt heel, blistering, red Intake Note: presents with blister s/p bug bite about 4 days ago Patient Tobacco Use Status: Never used Tobacco Allergies Sulfa (Sulfonamide Antibiotics) (SULFA (SULFONAMIDE ANTIBIOTICS)) Allergy (Mild, Verified 05/10/25 10:34) RASH clindamycin Adverse Reaction (Intermediate, Verified 05/10/25 10:34) Diarrhea amlodipine Adverse Reaction (Unknown, Verified 05/10/25 10:34) edema ENVIRONMENTAL Allergy (Intermediate, Uncoded 04/24/25 12:24) ITCHY EYES/SINUS SULFA Allergy (Unknown, Uncoded 04/24/25 12:24) unknown HPI EP Bug bite lt heel, blistering, red HPI Details Patient presents to the [place] clinic today with report of blisters on her left ankle. She states that on Wednesday, she was outside and she noticed two small bumps on the middle aspect of her left ankle. They were not itchy, raised, or red. Over the next several days, she developed blistering of these two areas. There is still no surrounding erythema, pain, itching, or swelling. She would like to drain these two small blisters since they are rubbing on her shoes. [facility] Medical History GERD (gastroesophageal reflux disease) Vitamin D deficiency Osteopenia Annual physical exam Postmenopausal Neutropenia Hyperlipidemia History of mammogram Syncope HTN (hypertension) Surgical History Status post corneal transplant S/P ELIZABETH-BSO H/O colonoscopy Family History Father Cancer Mother CHF (congestive heart failure) CVD (cardiovascular disease) Social History Housing: House Alcohol intake: current Alcohol intake frequency: holidays/special occasions only Alcohol type: wine and hard liquor Patient Tobacco Use Status: Never used Tobacco e-Cigarette/Vaping Use: Never Used service: No Current occupational status: retired Cognitive needs: No Hearing needs: No Vision needs: Yes Review of Systems Const All systems reviewed & are unremarkable except as noted in HPI and below Physical Exam Vital Signs: Last Vital Signs Temp 98.1 F 05/10/25 10:31 Pulse 88 05/10/25 10:31 BP 144/70 H 05/10/25 10:31 Pulse Ox 98 05/10/25 10:31 Oxygen Delivery Method Room Air 05/10/25 10:31 BMI result Body Mass Index 25.9 Const General: cooperative, healthy appearing and comfortable HEENT Head: Yes normal to inspection Resp Effort & Inspection: normal respiratory effort Cardio Rate: regular rate Rhythm: regular rhythm Skin Other: two small, <1cm serous blisters on left medial ankle. No surrounding erythema, warmth, swelling or tenderness. Patient denies pruritis. Extrem General: Yes capillary refill normal and Yes no clubbing, cyanosis or edema Psych Appearance: grossly normal Mental Status: mental status grossly normal Speech and movement: Normal speech and movement present Office Procedures Incision and Drainage Details: left medial ankle Incision and drainage performed by: Rita Perry Informed consent given: Yes Consent signed: Yes Anesthesia: none Incision with: needle Drainage quality: serous Culture taken: No Dressing: gauze Patient tolerated procedure: well Complications: No Additional details: two small serous-fluid containing blisters drained Assessment & Plan Assessment & Plan (1) Blister of left foot without infection: Code(s): S90.822A - Blister (nonthermal), left foot, initial encounter Qualifiers: Encounter type: initial encounter Qualified Code(s): S90.822A - Blister (nonthermal), left foot, initial encounter Plan: Patient requests blisters be drained as they are irritating her when wearing shoes. I advised that they will likely go away on their own, however patient would like provider to drain so that it is done properly, instead of her doing it at home herself. I used a 25g needle following iodine prep to drain these two small blisters without complication. Small amount of serous drainage removed from each. Bacitracin and bandaid applied. I advised patient to monitor area, and if she develops any redness, swelling, warmth, tenderness, she should return to the clinic for further evaluation. Otherwise, this should resolve without further intervention. All questions were answered patient verbalizes understanding and agrees to plan. Coding Level of Care Code Est Pt Level 4 (85249) Diagnoses Blister of left foot without infection, initial encounter S90.822A Encounter type: initial encounter
== END 2025-05-10 11:28 | disposition home or self-care (01) ==
PROVIDERS: PCP Internal Medicine; Visit Provider Nurse Practitioner Family
DX: S90.822A Blister (nonthermal), left foot, initial encounter (principal)

== ENCOUNTER → 2025-05-10 09:58 | Outpatient (BNVA) | payer MEDICARE, SELFPAY | PROVIDERS: PCP Internal Medicine; Visit Provider Nurse Practitioner Family | DX: S90.822A Blister (nonthermal), left foot, initial encounter (principal); X58.XXXA Exposure to other specified factors, initial encounter; Y93.9 Activity, unspecified; Y92.9 Unspecified place or not applicable; Y99.9 Unspecified external cause status | CPT/HCPCS: 10140; 10160; 99212 ==

== ENCOUNTER 2025-05-30 07:32 | Outpatient (REF) | payer MEDICARE, SELFPAY ==
--- NOTE | ~2025-05-30 | FL_ITS ---
EXAMINATION: XR GI SERIES with barium swallow CLINICAL INFORMATION: Epigastric pain, gastroesophageal reflux disease. COMPARISON: None available. TECHNIQUE: Routine upper GI contrast study was performed in upright and lying position with thick barium and effervescent granules. FINDINGS: On oral administration of thick barium in upright view and different positions there is normal propagation bolus from the oral cavity through the pharynx, esophagus into stomach without obstruction, narrowing or stricture. No intraluminal filling defect or extrinsic compression seen. On placing patient supine and prone lying the course, caliber and peristalsis of the stomach, duodenal bulb and the sweep is normal. The mucosal pattern of the stomach, and duodenal bulb and the sweep is normal. Incidental finding of small sliding hiatal hernia with moderate gastroesophageal reflux is noted. Incidental finding of cholecystectomy changes are noted. FLUOROSCOPY TIME: 220 seconds DOSE AREA PRODUCT: 1589 uGy-m2 (microgray-meter squared) FL/FL upper GI w Ba Swallow IMPRESSION: Small sliding hiatal hernia with moderate gastroesophageal reflux. Electronically signed by: Joe Ely MD 05/30/2025 10:04 AM EDT
--- OUTSIDE RECORDS SUMMARY | 2025-05-30 07:34 | XMS_ITS ---
Author Name Nan Conde Address Unknown Organization [facility] Care Team Providers Care Molasses And Caramel Operator Name Role Phone Unavailable Primary Care Physician Unavailab le History Of Present Illness This is a 75 year old female who is an established patient who is being seen for a chief complaint of skin lesions, located on the abdomen and right thigh. The lesions are new. The lesions have been present for months. These lesions have not been treated in the past. She presents today for: evaluation. She has no history of previous skin cancer, no family history of melanoma, and no family history of non-melanoma skin cancer. Patient reports growth/lesions on right thigh since March, was told possible fatty tumor through [facility] after shower noticed sends growths under right axilla, new over past week. Allergies, Adverse Reactions, Alerts Substance RxNorm Reaction(s) Severity Status Start Da te Sulfa (Sulfonamide Antibiotics) unspecif ied active amlodipine Other: Edema unspecified active clindamycin Diarrhea unspecified active Medications Medication Generic Name RxNorm Strength Strength Unit Route Dose Dose Form Frequency Date Started Date Ended Status Indication Sig prednisolon e acetate predniso lone acetate 1 % Ophtha lmic (eye) 1 drops , suspe nsion twice weekly active triamcinolo ne acetonide triamcin olone acetonid e 8913961 0.1 % Topica l cream BID 03/15/20 25 active Appl y 0.5 g BID to the rash on righ t leg as need ed famotidine 768184 20 mg Oral 1 table t QD active olmesartan 401925 20 mg Oral 1 table t QD active simvastatin 756623 20 mg Oral 1 tabl e t QD active Amoxicillin NULL 11/24/19 15 suspend ed Baby Aspirin NULL 11/24/19 15 suspend ed Fluticasone Propionate NULL 11/24 15 suspend ed Lisinopril NULL 11/24/19 15 suspend ed Vianey 128 NULL 11/24/19 15 suspend ed Simvastatin NULL 11/24/19 15 suspend ed Problems Problem Code Type Status Date of Diagnosis Date of Resolution Lipoma of right lower limb (disorder) 7393180005 128299(SNO MED) Diagnosis active 05/29/2025 Patient encounter status (finding) 451792996( SNOMED) Diagnosis active 05/29/2025 Seborrheic keratosis (disorder) 916259783( SNOMED) Diagnosis active 05/29/2025 Inflamed seborrheic keratosis (disorder) 222709971( SNOMED) Diagnosis active 03/15/2025 Nummular eczema (disorder) 00380096(S NOMED) Diagnosis active 03/15/2025 Epidermoid cyst of skin (disorder) 903134315( SNOMED) Diagnosis active 03/15/2025 Seborrheic keratosis (disorder) 062978489( SNOMED) Diagnosis active 03/15/2025 Senile hyperkeratosis (disorder) 114492461( SNOMED) Diagnosis active 03/23/2019 Aphthous ulceration of skin and/or mucous membrane (disorder) 450186071( SNOMED) Diagnosis active 11/24/2014 History of hypertension (situation) 272165439( SNOMED) Problem active Hypercholesterolemia (disorder) 79054138(S NOMED) Problem active Results No data Encounters Service provided at [facility], [address] [place] [address], [address], [place], [place] [id number]. Office phonenumber is [phone]. Office fax number is [phone]. Encounter Diagnosis Location Date / Time Type Lipoma (D17.23)No Active Les ion or Condition (Z00.00)Seborrheic Keratosis (L82.1) [facility] 05/29/2025 15:00:00 [facility] [id number] Reason For Referral I saw Hoa Strangeebvre in the office on May 29, 2025.Below is a summary of our visit:Lipoma: soft,moveable subcutaneous tumor located on the right thigh.Plan: Counseling and Defer.No Active Lesion or Condition: no active lesion noted on exam today located on the right axillary vault.Plan: Reassurance.Seborrheic Keratosis: pigmented waxy papule located on the trunk.Plan: Counseling.My impressionand plan was the followin.LipomaCounselingDefer: right thigh; Other Procedure - Excisional biopsy.2.No Active Lesion or ConditionReassurance3.Seborrheic KeratosisCounseling Procedures Procedure Date Cryotherapy of skin lesion with liquid n itrogen (procedure) 03/15/2025 12:00 am [facility] Total hysterectomy (procedure) Total hysterectomy (procedure) Total hysterectomy (procedure) Review Of Systems Provider reviewed on May 29, 2025.A focused review of systems was performed including Integumentary.No Problems With Healing And No Problems With Scarring (hypertrophic Or Keloid). Assessment 1.LipomaCounselingDefer: right thigh; Other Procedure - Excisional biopsy.2.No Active Lesion or ConditionReassurance3.Seborrheic KeratosisCounseling Plan of Care Future visit for 05/29/2026 - Follow up in 1 year for: Skin Check - 15 minutes (as previously scheduled). Other Instructions: May 08, 2026. Other Instructions: May 08, 2026. Code Detail Instructions 8696245 triamcinolone aceton han 0.1 % topical cream Apply 0.5 g BID to the rash on right leg as needed Instructions * I counseled the patient regarding the following:Skin Care: Lipomas can be removed via surgical excision.Expectations: Lipomas are benign fatty tumors. They usually remain stable and are asymptomatic.No treatment is necessary. * I counseled the patient regarding the following:Skin Care: Seborrheic Keratoses are benign. No treatment is necessary.Notify clinic if lesions begin to bleed or become painful. Or if there is re growth of this lesion. Social History Code Activity Start Date End Date 490262075 (SNOMED) Never smoker Sex female Sexual orientation Don't Know Gender identity Unspecified Vital Signs No data
--- OUTSIDE RECORDS SUMMARY | 2025-05-30 07:34 | XMS_ITS | Patient Health Record ---
Author Organization [facility] Address [address] [place] [address] Care Team Providers Care Lapping Machine Tender Name Role Phone Yamileth Khoury MD Primary Care Provider Ryan Sanchez Unavailable [phone] Allergies Allergen (clinical drug ingredient) Drug/Non Drug [...] Administration Date Status Comme nts Influenza Unknown 07/25/2021 Administered COVID-19 Moderna Vaccine Unknown 09/10/2021 Administered 1st 12/22/20 2nd 01/19/21 Social History Tobacco Use: Social History Observation [...] W/U Status Risk Notes Problem Tinea unguium (630740083) Tinea unguium (B35.1) Active confirmed Vital Signs Blood pressure diastolic 78 mm Hg 03/02/2025 Height 5ft 4in in 03/02/2025 Blood pressure systolic 122 mm Hg 03/02/2025 Weight 150 lbs 03/02/2025 BMI 25.74 kg/m2 03/02/2025 Procedures Procedure Date Ordered Date Performed Result Body Sit e 68445-FUWGKQZ NAIL, 6 OR MORE 06/09/2024 N/A 22143-Laxr Destruction, 1-06/09/2024 N/A 96487-PLMOEDM NAIL, 6 OR MORE 09/08/2024 N/A 29985-Pjtn Destruction, 1-14 09/08/2024 N/A 91997-AAPWPPO NAIL, 6 OR MORE 11/24/2024 N/A 33924-QZIDYFL NAIL, 6 OR MORE 03/02/2025 N/A Encounters Encounter Location Date Provider Diagnosis [facility] [address] 06/09/2024 Ryan Azeem Tinea unguium B35.1 ; Plantar wart B07.0 ; Pain in right toe(s) M79.674 ; Pain in left toe(s) M79.675 and Pain in left foot M79.[address] [facility] [address] 09/08/2024 Ryan Azeem Tinea unguium B35.1 ; Plantar wart B07.0 ; Pain in right toe(s) M79.674 ; Pain in left toe(s) M79.675 and Pain in left foot M79.[address] [address] 11/24/2024 Ryna Fordier Tinea unguium B35.1 ; Pain in right toe(s) M79.674 and Pain in left toe(s) M79.[address] [address] 03/02/2025 Ryan Azeem Tinea unguium B35.1 ; [...] Treatment Pending Test Test Name Order Date 57823-HZTMRJB NAIL, 6 OR MORE 02/15/2015 15514-WQJALYW NAIL, 6 OR MORE 04/19/2015 60438-LFVNUMJ NAIL, 6 OR MORE 07/09/2015 36834-QTGSDPH NAIL, 6 OR MORE 10/11/2015 47887-XAIFTFC NAIL, 6 OR MORE 01/24/2016 77112-RXUZSKS NAIL, 6 OR MORE 05/01/2016 93782-SKSCKDA NAIL, 6 OR MORE 07/31/2016 31157-YATAPLD NAIL, 6 OR MORE 01/01/2017 41873-TDJUREK NAIL, 6 OR MORE 04/02/2017 12996-IWMYJWV NAIL, 6 OR MORE 06/25/2017 10135-DGFPAYT NAIL, 6 OR MORE 09/24/2017 60538-GIJYXMW NAIL, 6 OR MORE 01/04/2018 43236-YFXFTWC NAIL, 6 OR MORE 04/08/2018 65869-FITHWSR NAIL, 6 OR MORE 07/08/2018 74017-KHWFQYF NAIL, 6 OR MORE 10/07/2018 81475-FJXJACJ NAIL, 6 OR MORE 12/16/2018 40276-FMDYJIY NAIL, 6 OR MORE 03/07/2019 48132-AWOATSH NAIL, 6 OR MORE 05/16/2019 34419-LQFSXCT NAIL, 6 OR MORE 08/01/2019 36825-ASVYNTK NAIL, 6 OR MORE 10/03/2019 71696-PTYNHNR NAIL, 6 OR MORE 12/15/2019 04149-MJSDUPK NAIL, 6 OR MORE 03/22/2020 65200-RFFKXLO NAIL, 6 OR MORE 05/31/2020 57031-VDJABTT NAIL, 6 OR MORE 08/09/2020 49595-WSGFSNG NAIL, 6 OR MORE 11/08/2020 98329-CSEEDSS NAIL, 6 OR MORE 01/17/2021 45366-RTMHBNV NAIL, 6 OR MORE 04/04/2021 15028-IGWUIRS NAIL, 6 OR MORE 06/13/2021 27149-GWYLZTD NAIL, 6 OR MORE 09/09/2021 42131-CPENNXQ NAIL, 6 OR MORE 11/18/2021 51236-CYAIAYR NAIL, 6 OR MORE 02/06/2022 24033-GTASKHX NAIL, 6 OR MORE 04/24/2022 16138-MJBMTET NAIL, 6 OR MORE 09/08/2022 00444-GPEGKVQ NAIL, 6 OR MORE 11/13/2022 63554-WXCTXMV NAIL, 6 OR MORE 01/22/2023 17056-PVAQAQS NAIL, 6 OR MORE 04/23/2023 03795-CAAFLMF NAIL, 6 OR MORE 07/13/2023 25679-ENHUVVZ NAIL, 6 OR MORE 10/15/2023 52573-AEBBPNM NAIL, 6 OR MORE 01/14/2024 21090-FMLXZNS NAIL, 6 OR MORE 06/09/2024 37114-XOEQHHU NAIL, 6 OR MORE 09/08/2024 95085-TNNDCOM NAIL, 6 OR MORE 11/24/2024 30637-EFKIROV NAIL, 6 OR MORE 03/02/2025 04811-Mmwv Destruction, 1-14 09/08/2024 12902-Jysu Destruction, -14 06/09/2024 45728-Hqfx Destruction, -14 01/14/2024 03060-Fqsl Destruction, -14 04/02/2017 12516-Bceh Destruction, -14 10/15/2023 23887-Inub Destruction, -14 07/13/2023 41509-Ogfp Destruction, -14 04/23/2023 40636-Edjb Destruction, -14 01/22/2023 05586-Yrzz Destruction, -14 11/13/2022 23865-Bpjy Destruction, -14 09/08/2022 61690-Qico Destruction, -14 04/24/2022 29981-Uobp Destruction, -14 02/06/2022 63418-Alzv Destruction, -14 11/18/2021 59818-Amqe Destruction, -14 09/09/2021 84198-Ubrb Destruction, -14 06/13/2021 74414-Dobo Destruction, -14 04/04/2021 66658-Jgfc Destruction, 11-0701/17/2021 36350-Nprj Destruction, 11-0711/08/2020 42487-Awnm Destruction, 11-0708/09/2020 45082-Qxto Destruction, 11-0705/31/2020 17253-Vebb Destruction, 11-0703/22/2020 83813-Wmxq Destruction, 11-0712/15/2019 00766-Ejke Destruction, 11-0710/03/2019 74840-Pknl Destruction, 11-0708/01/2019 84787-Xnwn Destruction, 11-0705/16/2019 47777-Wsbj Destruction, 11-0703/07/2019 23332-Lnzq Destruction, 11-0712/16/2018 34784-Qsop Destruction, 11-0710/07/2018 73665-Ejci Destruction, 11-0707/08/2018 24789-Zqjh Destruction, 11-0704/08/2018 23888-Ypyl Destruction, 11-0701/04/2018 72363-Tfuj Destruction, 11-0709/24/2017 41974-Qkfl Destruction, 11-0706/25/2017 14740-Yvid Destruction, 11-0704/19/2015 17828-Rmlj Destruction, 11-0710/11/2015 95568-Orrx Destruction, 11-0707/09/2015 31759-Untl Destruction, 11-0702/15/2015 48544-Pieu Destruction, 11-0707/19/2012 03768-Pkow Destruction, 11-0703/06/2014 99573-Wbtvrgnc Plate 02/15/2015 85185-Hcjomtef Plate 04/19/2015 29291-Xtycnwad Plate 07/09/2015 44300-Tvucozpj Plate 10/11/2015 09647-Jrqrlixe Plate 07/31/2016 45380-Vserfldk Plate 05/19/2016 15891-Atvkgprd Plate 03/22/2020 65623-Twmdcwfj Plate Each Additional 49086-Pimzmwwh Plate Each Additional 30831-Fvqzmyft Plate Each Additional 36834-QTRG SKIN LESIONS, 2 TO 4 01/02/20 17 - Ganglion Cyst Injection/Aspiratio n 02/15/2015- Ganglion Cyst Injection/Aspiratio n 03/06/2014 Next Appt Details Provider Name:Ryan Gann , 06/01/2025 10:45:00 AM, [address] [facility], [place], [address], Insurance Providers Payer Name Payer Address Payer Phone Subscriber Number Group Number Insured Name Patient Relationship to Insured Coverage Start Date Coverage End Date [employer]vantage [address] [place] [address] [id number] Hoa Aguilar Self - patient is the insured 4 Medical (General) History Medical History History ICD Code Cholesterol high blood pressure measles chicken pox Surgical History Surgery Date(Month/Year) colonoscopy 01/05/2023 abscess Tooth 12/2021 2x root canal 2022 Hospitalization History Reason Date(Month/Year) [facility] -[facility] 2x c diff sameday from [facility] in 09/2022
--- OUTSIDE RECORDS SUMMARY | 2025-05-30 07:35 | XMS_ITS | Patient Health Record ---
Author Organization [facility] Address [address] [place] [address] Care Team Providers Care Boom Pump Operator Name Role Phone Yamileth Khoury MD Primary Care Provider Bran Douglas Jr Unavailable [phone] Allergies Allergen (clinical drug ingredient) Drug/Non Drug [...] Problem Status W/U Status Risk Notes Problem 207359853 Colon cancer screening (Z12.11) Active confirmed Problem 090762779 Long-term use of aspirin therapy (Z79.82) Active confirmed Problem 076035835 Abnormal CT scan , sigmoid colon (R93.3) Active confirmed Problem 81053578 Diarrhea, unspecified type (R19.7) Active confirmed Problem 49287993 Irritable bowel syndrome with both constipation and diarrhea (K58.2) Active confirmed Problem 16639055 Change in bowel function (R19.8) Active confirmed Problem 960110422 Clostridioides difficile infection (A49.8) Active confirmed Plan [...] Insured Coverage Start Date Coverage End Date [facility] [address] [place] [phone] [id number] GIFTY BLACKMAN Self - patient is the [...]
== END 2025-05-30 07:33 | disposition home or self-care (01) ==
LOC: HO.XRAY 07:32
PROVIDERS: PCP Internal Medicine; Visit Provider Internal Medicine
DX: R13.10 Dysphagia, unspecified (principal); K21.9 Gastro-esophageal reflux disease without esophagitis
CPT/HCPCS: 74240

== ENCOUNTER → 2025-05-30 07:35 | Outpatient (BNV) | payer MEDICARE, SELFPAY | PROVIDERS: PCP Internal Medicine; Visit Provider Radiology Diagnostic Radiology | DX: R10.13 Epigastric pain (principal); K21.9 Gastro-esophageal reflux disease without esophagitis | CPT/HCPCS: 74246 ==

== ENCOUNTER 2025-06-23 09:40 | Outpatient (AMB) | payer MEDICARE, SELFPAY ==
--- OUTSIDE RECORDS SUMMARY | 2025-06-23 09:42 | XMS_ITS | Patient Health Record ---
Author Organization [facility] Address [address] [place] [address] Care Team Providers Care Algebra Teacher Name Role Phone Yamileth Khoury MD Primary Care Provider Bran Douglas Jr Unavailable [phone] Allergies Allergen (clinical drug ingredient) Drug/Non [...] Problem Status W/U Status Risk Notes Problem 026457618 Colon cancer screening (Z12.11) Active confirmed Problem 858549868 Long-term use of aspirin therapy (Z79.82) Active confirmed Problem 802235161 Abnormal CT scan , sigmoid colon (R93.3) Active confirmed Problem 08863248 Diarrhea, unspecified type (R19.7) Active confirmed Problem 78770734 Irritable bowel syndrome with both constipation and diarrhea (K58.2) Active confirmed Problem 67595071 Change in bowel function (R19.8) Active confirmed Problem 560823770 Clostridioides difficile infection (A49.8) Active confirmed Plan [...] Insured Coverage Start Date Coverage End Date [facility] [address] [place] [address] [id number] GIFTY BLACKMAN Self - patient is the [...]
--- OUTSIDE RECORDS SUMMARY | 2025-06-23 09:42 | XMS_ITS | Patient Health Record ---
Author Organization [facility] Address [address] [place] [address] Care Team Providers Care Counter Pocket Trimmer Name Role Phone Yamileth Khoury MD Primary Care Provider Ryan Sanchez Unavailable [phone] Allergies Allergen (clinical drug ingredient) Drug/Non Drug [...] Once a day; Duration: 30 day(s) Not-Taking Moxifloxacin HCl 1 drop into affected eye Ophthalmic Not-Taking amLODIPine Besylate 2.5 MG Orally Not-Taking Ilevro Not-Taking Olmesartan Medoxomil Active Simvastatin 20 MG 1 tablet in the evening Orally Once a day; Duration: 30 day(s) Active Vitamin D 1000 UNIT 1 tablet Orally Once a day; Duration: 30 day(s) Active Famotidine pepcid Active hydroCHLOROthiazide 12.5 MG 1 capsule Or ally Once a day; Duration: 30 day(s) Not-Taking Fluticasone Propionate HFA 44 MCG/ACT 1 puff Inhalation Twice a day Active Lisinopril 10 MG 1 tablet Orally Once a day Not-Taking Magnesium 500 MG 1 tablet with a meal Orally Once a day; Duration: 30 day(s) Active Calcium 500-125 MG-UNIT 1 tablet with fo od Orally Once a day; Duration: 30 day(s) Not-Taking prednisoLONE Active Immunizations Vaccine Route Administration Date Status Comme nts Influenza Unknown 07/25/2021 Administered Influenza Unknown 07/25/2024 Administered COVID-19 Moderna Vaccine Unknown 09/10/2021 Administered [...] Signs Blood pressure diastolic 80 mm Hg 06/01/2025 Height 5ft 4in in 06/01/2025 Blood pressure systolic 120 mm Hg 06/01/2025 Weight 150 lbs 06/01/2025 BMI 25.74 kg/m2 06/01/2025 Procedures Procedure Date Ordered Date Performed Result Body Sit e 08954-MUOMJDH NAIL, 6 OR MORE 09/08/2024 N/A 13157-Eiax Destruction, 1-14 09/08/2024 N/A 69919-LWDJSVA NAIL, 6 OR MORE 11/24/2024 N/A 40620-CPQFLAH NAIL, 6 OR MORE 03/02/2025 N/A 74840-SZSTTHK NAIL, 6 OR MORE 06/01/2025 N/A Encounters Encounter Location Date Provider Diagnosis [facility] [address] [address] 09/08/2024 Ryan Azeem Tinea unguium B35.1 ; Plantar wart B07.0 ; Pain in right toe(s) M79.674 ; Pain in left toe(s) M79.675 and Pain in left foot M79.672 [facility] [address] 11/24/2024 Ryan Azeem Tinea unguium B35.1 ; Pain in right toe(s) M79.674 and Pain in left toe(s) M79.[address] [address] 03/02/2025 Ryan Gann Tinea unguium B35.1 ; Pain in right toe(s) M79.674 and Pain in left toe(s) M79.[address] [address] 06/01/2025 Ryan Gann Tinea unguium B35.1 ; Pain [...] Pain in right toe(s) (ICD-10 - M79.674) 06/01/2025 Tinea unguium (ICD-10 - B35.1) 06/01/2025 Pain in right toe(s) (ICD-10 - M79.674) 06/01/2025 Pain in left toe(s) (ICD-10 - M79.675) 03/02/2025 Pain in left toe(s) (ICD-10 - M79.675) 11/24/2024 Pain in left toe(s) (ICD-10 - M79.675) 09/08/2024 Pain in right toe(s) (ICD-10 - M79.674) 09/08/2024 Pain in left toe(s) (ICD-10 - M79.675) 09/08/2024 Pain in left foot (ICD-10 - M79.672) Plan Of Treatment Pending Test Test Name Order Date 02794-ARGLTKM NAIL, 6 OR MORE 02/15/2015 66793-IZWUHKL NAIL, 6 OR MORE 04/19/2015 57837-NIOIKBW NAIL, 6 OR MORE 07/09/2015 76064-HXPAXCI NAIL, 6 OR MORE 10/11/2015 04680-NXMXBGT NAIL, 6 OR MORE 01/24/2016 92312-NXRPQDN NAIL, 6 OR MORE 05/01/2016 49803-GOQSBUG NAIL, 6 OR MORE 07/31/2016 17223-LFJYEQD NAIL, 6 OR MORE 01/01/2017 64254-KEVWDCD NAIL, 6 OR MORE 04/02/2017 07125-TMDSZEI NAIL, 6 OR MORE 06/25/2017 83631-LERRJNP NAIL, 6 OR MORE 09/24/2017 16142-OSISXYH NAIL, 6 OR MORE 01/04/2018 35079-NRFZJQE NAIL, 6 OR MORE 04/08/2018 56970-KVXDSEX NAIL, 6 OR MORE 07/08/2018 93230-EUTUIYW NAIL, 6 OR MORE 10/07/2018 63461-MYBLVHE NAIL, 6 OR MORE 12/16/2018 20354-XJKZNVX NAIL, 6 OR MORE 03/07/2019 52850-EPQAWFO NAIL, 6 OR MORE 05/16/2019 67515-VFOATDN NAIL, 6 OR MORE 08/01/2019 38728-UOTVLUX NAIL, 6 OR MORE 10/03/2019 52387-PAHUDHG NAIL, 6 OR MORE 12/15/2019 61782-ZZNVOZL NAIL, 6 OR MORE 03/22/2020 40038-PYFDIEM NAIL, 6 OR MORE 05/31/2020 90546-LYMUJBL NAIL, 6 OR MORE 08/09/2020 76434-QFLDGUH NAIL, 6 OR MORE 11/08/2020 55171-RMUBFKK NAIL, 6 OR MORE 01/17/2021 89874-YUVKQLD NAIL, 6 OR MORE 04/04/2021 46909-DQXOIRD NAIL, 6 OR MORE 06/13/2021 15557-JJDNBAZ NAIL, 6 OR MORE 09/09/2021 37122-PSFOBJA NAIL, 6 OR MORE 11/18/2021 13142-ZTPWSGJ NAIL, 6 OR MORE 02/06/2022 82601-HSHDJCQ NAIL, 6 OR MORE 04/24/2022 85911-RYPZVWY NAIL, 6 OR MORE 09/08/2022 32542-JWFVPYJ NAIL, 6 OR MORE 11/13/2022 42212-UXLHIBV NAIL, 6 OR MORE 01/22/2023 68981-COWUCTX NAIL, 6 OR MORE 04/23/2023 14819-KRANUAG NAIL, 6 OR MORE 07/13/2023 22517-RHTOOKX NAIL, 6 OR MORE 10/15/2023 39264-FNKYRQD NAIL, 6 OR MORE 01/14/2024 30940-UNZSMYP NAIL, 6 OR MORE 06/09/2024 58435-OEHKAXQ NAIL, 6 OR MORE 09/08/2024 04418-SGGBVLD NAIL, 6 OR MORE 11/24/2024 54404-HXWXKXC NAIL, 6 OR MORE 03/02/2025 24259-UYNPGQJ NAIL, 6 OR MORE 06/01/2025 06352-Uktq Destruction, -14 09/08/2024 24264-Mcpk Destruction, -14 06/09/2024 18721-Albb Destruction, -14 01/14/2024 40257-Kxss Destruction, -14 04/02/2017 52063-Wfgx Destruction, -14 10/15/2023 70773-Mqqq Destruction, -14 07/13/2023 04129-Saiv Destruction, -14 04/23/2023 17919-Mqzr Destruction, -14 01/22/2023 26811-Gdyb Destruction, -14 11/13/2022 94794-Lmmn Destruction, -14 09/08/2022 46143-Yihv Destruction, -14 04/24/2022 28295-Izvd Destruction, -14 02/06/2022 01512-Ysyo Destruction, -14 11/18/2021 61263-Nypp Destruction, -14 09/09/2021 08049-Hyxn Destruction, -14 06/13/2021 08822-Dnuk Destruction, -14 04/04/2021 31634-Dwau Destruction, -14 01/17/2021 12344-Imuu Destruction, -14 11/08/2020 64045-Vwli Destruction, -14 08/09/2020 37458-Kjjz Destruction, -14 05/31/2020 86795-Wpho Destruction, 11-0703/22/2020 12848-Avxi Destruction, 11-0712/15/2019 56498-Ewcx Destruction, 11-0710/03/2019 52353-Apdh Destruction, 11-0708/01/2019 31519-Lqyr Destruction, 11-0705/16/2019 82148-Gxbq Destruction, 11-0703/07/2019 73894-Gzfi Destruction, 11-0712/16/2018 55071-Pxld Destruction, 11-0710/07/2018 66392-Ikri Destruction, 11-0707/08/2018 90150-Vtho Destruction, 11-0704/08/2018 88529-Rrzn Destruction, 11-0701/04/2018 95370-Rcgo Destruction, 11-0709/24/2017 50727-Enwh Destruction, 11-0706/25/2017 24981-Rwar Destruction, 11-0704/19/2015 84061-Tcey Destruction, 11-0710/11/2015 89307-Pwxm Destruction, 11-0707/09/2015 60719-Vvps Destruction, 11-0702/15/2015 18505-Tjea Destruction, 11-0707/19/2012 68483-Skqz Destruction, 11-0703/06/2014 11863-Rsfezpgg Plate 02/15/2015 54482-Pdrsdnri Plate 04/19/2015 28411-Akmsmmai Plate 07/09/2015 73351-Qsiunfsj Plate 10/11/2015 32367-Efpvetiv Plate 07/31/2016 58158-Jgqnhjec Plate 05/19/2016 13735-Mfqesixm Plate 03/22/2020 56803-Cysytyiy Plate Each Additional 91509-Ccrolqol Plate Each Additional 90215-Valbrxwf Plate Each Additional 44316-OGRI SKIN LESIONS, 2 TO 4 01/02/20 17 - Ganglion Cyst Injection/Aspiratio n 02/15/2015- Ganglion Cyst Injection/Aspiratio n 03/06/2014 Next Appt Details Provider Name:Ryan Rider Azeem , 09/11/2025 10:45:00 AM, [address] [facility], [place], [address], Insurance Providers Payer Name Payer Address Payer Phone Subscriber Number Group Number Insured Name Patient Relationship to Insured Coverage Start Date Coverage End Date [employer] [address] [place] [address] [phone] [id number] Hoa Aguilar Self - patient is the insured 4 Medical (General) History Medical History History ICD Code Cholesterol high blood pressure measles chicken pox Surgical History Surgery Date(Month/Year) colonoscopy 01/05/2023 abscess Tooth 12/2021 2x root canal 2022 Hospitalization History Reason Date(Month/Year) [facility] -[facility] 2x c diff sameday from [facility] 09/2022
[2025-06-23 10:05] VITALS: BP 102/70; PULSE 97; RESP 16; TEMP 36.7; O2SAT 98; BMI 25.3
--- NOTE | 2025-06-23 10:05 | AM.OFFWIN_ITS ---
Intake Vital Signs 3 06/23/25 10:05 Height 5 ft 3 in Weight 143 lb BMI 25.3 BP 102/70 Blood Pressure Location Rt brachial Position Sitting Respiration 16 Pulse 97 Pulse Source Pulse Oximeter Temp 98.0 F Temp Source Oral Pulse Oximetry (%) 98 Oxygen Delivery Method Room Air Intake Visit Reasons: EP Hives Intake Note: Pt is here today c/o Hives: tried a new moisterizer Patient Tobacco Use Status: Never used Tobacco Allergies Sulfa (Sulfonamide Antibiotics) (SULFA (SULFONAMIDE ANTIBIOTICS)) Allergy (Mild, Verified 06/23/25 11:09) RASH clindamycin Adverse Reaction (Intermediate, Verified 06/23/25 11:09) Diarrhea amlodipine Adverse Reaction (Unknown, Verified 06/23/25 11:09) edema ENVIRONMENTAL Allergy (Intermediate, Uncoded 06/23/25 10:15) ITCHY EYES/SINUS SULFA Allergy (Unknown, Uncoded 06/23/25 10:15) unknown Medication List - Last Reconciled 06/23/25 by Cari Rodriguez, RESTAUR[employer] WORK[employer]- Bifidobacterium infantis (Align (B.infantis)) 4 mg PO DAILY biotin 2,500 mcg PO DAILY cetirizine (Zyrtec) 10 mg PO DAILY PRN cholecalciferol (vitamin D3) 25 mcg PO DAILY fluticasone furoate 27.5 mcg/actuation (Flonase Sensimist) 1 spray intranasal DAILY PRN ugeythop-yhlj-anb4-C-mj-bosw 750 mg-644 mg- 30 mg-1 mg (Osteo Bi-Flex Triple Strength) 2 tabs PO DAILY magnesium 250 mg PO DAILY olmesartan 20 mg PO DAILY omeprazole 20 mg PO DAILY prednisolone acetate 1% 1 drp ophthalmic (eye) .QD prednisone 50 mg PO DAILY 5 days simvastatin 20 mg PO QPM HPI HPI Comments 2 History of Present Illness0 Details History - The patient is a 75-year-old female pr esenting with hives. - Recent onset following use of a new mo isturizer, CeraVe. - History of similar episodes and use of prednisone with relief. - Current severe itching localized to wa ist, groin, legs and neck. - on famotidine; took Benadryl, provide partial relief. - Denies respiratory or facial involveme nt. Review of Systems - Skin: Reports hives around the waist, groin, neck, and back; Denies rash on the face. - Respiratory: Denies difficulty breathi ng or swallowing. Discussion Notes During the visit, I reviewed the likely diagnosis of urticaria secondary to a contact dermatitis caused by using a new moisturizing lotion, CeraVe. I discussed the management plan which includes continuing the previously effective prednisone for 5 days to manage the hives. I emphasized the importance of avoiding the offending moisturizer in the future. We also discussed the use of famotidine as part of her regular medication regimen that may also help in calming the symptoms. I suggested using Benadryl at night to help with itching and sleep as needed. I advised her to take the prednisone with food and to be cautious about using new skin products due to her history of reactions to different moisturizers. Follow-up care and interventions in case of worsening symptoms or new concerns were also reviewed. Patient was given time to ask questions. All questions were answered to their satisfaction. Assessment and Plan 1. Urticaria - Prescribe prednisone 5 days. - Avoid CeraVe moisturizer. 2. Contact Dermatitis - Avoid offending products. 3. Rash - Use Benadryl at night as needed. - Continue famotidine. Patient Instructions - Take prednisone with food for 5 days t o help reduce hives. - Avoid using CeraVe moisturizer and any new moisturizers. - Continue using your usual moisturizer if well-tolerated in the past. - Take Benadryl at night to help with it bala and sleep. - Keep using famotidine as part of your routine. - Call the office if symptoms worsen or if you have trouble breathing or swallowing. Consent Patient was informed and verbally consented to the use of an ambient scribe for clinic note documentation during this visit. Total time spent caring for the patient today was [] minutes. This includes time spent before the visit reviewing the chart, time spent during the visit, and time spent after the visit on documentation, reviewing laboratory results, diagnostic imaging, medications, performing a medically necessary evaluation, counseling on diagnoses, care coordination, ordering appropriate tests, ordering appropriate medications, review of tests performed by other providers, reporting test results with the patient, communication with other healthcare providers. Exam: Awake alert NAD Speaking in full setences No facial involvement HIves, present on bilat legs (See below) anterior/posterior trunk and groin PFSH Medical History GERD (gastroesophageal reflux disease) Vitamin D deficiency Osteopenia Annual physical exam Postmenopausal Neutropenia Hyperlipidemia History of mammogram Syncope HTN (hypertension) Surgical History Status post corneal transplant S/P [facility]IZABETH-BSO H/O colonoscopy Family History Father Cancer Mother CHF (congestive heart failure) CVD (cardiovascular disease) Social History Housing: House Alcohol intake: current Alcohol intake frequency: holidays/special occasions only Alcohol type: wine and hard liquor Patient Tobacco Use Status: Never used Tobacco e-Cigarette/Vaping Use: Never Used service: No Current occupational status: retired Cognitive needs: No Hearing needs: No Vision needs: Yes Physical Exam Vital Signs: Last Vital Signs Temp 98.0 F 06/23/25 10:05 Pulse 97 06/23/25 10:05 Resp 16 06/23/25 10:05 BP 102/70 06/23/25 10:05 Pulse Ox 98 06/23/25 10:05 Oxygen Delivery Method Room Air 06/23/25 10:05 BMI result Body Mass Index 25.3 Assessment & Plan Assessment & Plan (1) Allergic reaction: Code(s): T78.40XA - Allergy, unspecified, initial encounter Qualifiers: Encounter type: initial encounter Qualified Code(s): T78.40XA - Allergy, unspecified, initial encounter Plan . Medications: New 2 prednisone 50 mg PO DAILY 5 tabs 0RF 5 days Coding Level of Care Code Est Pt Level 3 (79832) Diagnoses Allergic reaction, initial encounter T78.40XA Encounter type: initial encounter
== END 2025-06-23 11:19 | disposition home or self-care (01) ==
PROVIDERS: PCP Internal Medicine; Visit Provider Nurse Practitioner Family
DX: T78.40XA Allergy, unspecified, initial encounter (principal)

== ENCOUNTER → 2025-06-23 09:40 | Outpatient (BNVA) | payer MEDICARE, SELFPAY | PROVIDERS: PCP Internal Medicine; Visit Provider Nurse Practitioner Family | DX: T78.40XA Allergy, unspecified, initial encounter (principal); L50.9 Urticaria, unspecified; X58.XXXA Exposure to other specified factors, initial encounter; Y93.9 Activity, unspecified; Y92.9 Unspecified place or not applicable; Y99.9 Unspecified external cause status | CPT/HCPCS: 99212 ==

== ENCOUNTER 2025-10-02 10:36 | Outpatient (REF) | payer MEDICARE, SELFPAY ==
[2025-10-02 13:50] LABS: MANUAL DIFF FLAG NO
[2025-10-02 13:57] LABS: Hematocrit 41.5 % (37.0-47.0); Hemoglobin 13.7 g/dl (12.0-16.0); Imm Gran Abs Auto 0.01 X10*3/uL (0.00-0.03); Imm Gran Pct Auto 0.3 % (0.0-0.4); Lymphocytes Absolute Auto 1.1 X10*3/uL (1.2-4.9); Mean Corpuscular HGB Conc 33.0 g/dl (31.0-35.0); Mean Corpuscular Hemoglobin 29.5 pg (27.0-33.0); Mean Corpuscular Volume 89.4 fL (80.0-98.0); NRBC Abs Auto 0.000 X10*3/uL (0.0-0.012); NRBC Pct Auto 0.0 /100WBC (0.0-0.2); Platelet Count 271 X10*3/uL (160-400); Red Blood Count 4.64 X10*6/uL (4.20-5.50); White Blood Count 4.0 X10*3/uL (4.8-10.8)
[2025-10-02 14:41] LABS: Alanine Aminotransferase 18 U/L (0-31); Albumin Level 5.0 g/dL (3.5-5.0); Alkaline Phosphatase 77 U/L (39-117); Anion Gap 11 (12-20); Aspartate Amino Transferase 25 U/L (5-31); Blood Urea Nitrogen 10 mg/dL (9-16); Calcium 9.4 mg/dL (8.4-10.2); Carbon Dioxide 28 mmol/L (22-29); Chloride 107 mmol/L (96-108); Cholesterol 206 mg/dL (<200); Estimated Glomerular Filt Rate > 60; HDL Cholesterol 85 mg/dL (>40); Potassium 3.7 mmol/L (3.3-5.1); Sodium 142 mmol/L (135-145); Total Protein 7.3 g/dL (6.5-8.0); Triglycerides 99 mg/dL (<150)
== END 2025-10-02 10:37 | disposition home or self-care (01) ==
LOC: HO.HMGCLDS 10:36
PROVIDERS: PCP Internal Medicine; Visit Provider Internal Medicine
DX: I10 Essential (primary) hypertension (principal); D70.9 Neutropenia, unspecified; E78.5 Hyperlipidemia, unspecified; E55.9 Vitamin D deficiency, unspecified
CPT/HCPCS: 36415; 80053; 80061; 82306; 84443; 85025

== ENCOUNTER 2025-10-16 07:45 | Outpatient (AMB) | payer MEDICARE, SELFPAY ==
--- OUTSIDE RECORDS SUMMARY | 2025-10-16 07:48 | XMS_ITS | Patient Health Record ---
[facility] Address [address] [place] [address] Care Team Providers Care Disc Sander Name Role Phone Yamileth Khoury MD Primary Care Provider Ryan Sanchez Unavailable [phone] Allergies Allergen (clinical drug ingredient) Drug/Non Drug [...] Unknown 07/25/2021 Administered Influenza Unknown 07/25/2024 Administered Influenza Unknown 07/27/2025 Administered COVID-19 Moderna Vaccine Unknown 09/10/2021 Administered [...] W/U Status Risk Notes Problem Tinea unguium (041428625) Tinea unguium (B35.1) Active confirmed Problem Acquired hammer toe of left foot (1059830597703166) Other hammer toe(s) (acquired), left foot (M20.42) Active confirmed Problem Localized, primary osteoarthritis of the ankle and/or foot (995999789) Arthritis of joint of lesser toe, left (M19.072) Active confirmed Vital Signs Blood pressure diastolic 65 mm Hg 09/11/2025 Height 5ft 4in in 09/11/2025 Blood pressure systolic 128 mm Hg 09/11/2025 Weight 150 lbs 09/11/2025 BMI 25.74 kg/m2 09/11/2025 Procedures Procedure Date Ordered Date Performed Result Body Sit e 97140-RNGLRBA NAIL, 6 OR MORE 11/24/2024 N/A 22445-MAFNWPQ NAIL, 6 OR MORE 03/02/2025 N/A 56499-TYTJFHP NAIL, 6 OR MORE 06/01/2025 N/A 70481-NHWXMTS NAIL, 6 OR MORE 09/11/2025 N/A Encounters Encounter Location Date [facility] [address] 11/24/2024 Ryan Gann Tinea unguium B35.1 ; Pain in right toe(s) M79.674 and Pain in left toe(s) M79.[address] [address] 03/02/2025 Ryan Azeem Tinea unguium B35.1 ; Pain in right toe(s) M79.674 and Pain in left toe(s) M79.[address] [address] 06/01/2025 Ryan Azeem Tinea unguium B35.1 ; Pain in right toe(s) M79.674 and Pain in left toe(s) M79.[address] [address] 09/11/2025 Ryan Azeem Tinea unguium B35.1 ; Pain in right toe(s) M79.674 ; Pain in left toe(s) M79.675 ; Other hammer toe(s) (acquired), left foot M20.42 ; Arthritis of joint of lesser toe, left M19.072 and Subluxation of metatarsophalangeal joint of toe, initial encounter S93.149A Assessments Encounter Date Diagnosis (ICD Code) Assessment Notes Treatment Notes Treatment Clinical Notes Section Notes 11/24/2024 Tinea unguium (ICD-1 0 - B35.1) 11/24/2024 Pain in right toe(s) (ICD-10 - M79.674) 03/02/2025 Tinea unguium (ICD-1 0 - B35.1) 03/02/2025 Pain in right toe(s) (ICD-10 - M79.674) 09/11/2025 Tinea unguium (ICD-1 0 - B35.1) 09/11/2025 Pain in right toe(s) (ICD-10 - M79.674) 06/01/2025 Tinea unguium (ICD-1 0 - B35.1) 06/01/2025 Pain in right toe(s) (ICD-10 - M79.674) 06/01/2025 Pain in left toe(s) (ICD-10 - M79.675) 09/11/2025 Pain in left toe(s) (ICD-10 - M79.675) 03/02/2025 Pain in left toe(s) (ICD-10 - M79.675) 11/24/2024 Pain in left toe(s) (ICD-10 - M79.675) 09/11/2025 Other hammer toe(s) (acquired), left foot (ICD-10 - M20.42) 09/11/2025 Arthritis of joint o f lesser toe, left (ICD-10 - M19.072) 09/11/2025 Subluxation of metatarsophalangeal joint of toe, initial encounter (ICD-10 - S93.149A) Plan Of Treatment Pending Test Test Name Order Date 51268-VVEJSYX NAIL, 6 OR MORE 02/15/2015 88440-XHYKJKB NAIL, 6 OR MORE 04/19/2015 13452-HBBMRJK NAIL, 6 OR MORE 07/09/2015 56989-WKGFODX NAIL, 6 OR MORE 10/11/2015 59650-WMKYKNM NAIL, 6 OR MORE 01/24/2016 14811-GABZAKE NAIL, 6 OR MORE 05/01/2016 56853-TJQKJBR NAIL, 6 OR MORE 07/31/2016 02908-VYYZNFS NAIL, 6 OR MORE 01/01/2017 89580-BZJIPJZ NAIL, 6 OR MORE 04/02/2017 12528-XAXRWXM NAIL, 6 OR MORE 06/25/2017 80150-OIROFSF NAIL, 6 OR MORE 09/24/2017 79109-JCWPYWU NAIL, 6 OR MORE 01/04/2018 60438-PHDSPLV NAIL, 6 OR MORE 04/08/2018 41653-NTGISTQ NAIL, 6 OR MORE 07/08/2018 97949-DOBCUHQ NAIL, 6 OR MORE 10/07/2018 16473-PFOBDIY NAIL, 6 OR MORE 12/16/2018 66175-KXNODMU NAIL, 6 OR MORE 03/07/2019 43775-JFKGNXI NAIL, 6 OR MORE 05/16/2019 75306-HGEYUPW NAIL, 6 OR MORE 08/01/2019 06470-NJDRYHD NAIL, 6 OR MORE 10/03/2019 51487-ODOQQNK NAIL, 6 OR MORE 12/15/2019 65907-QGGZQWD NAIL, 6 OR MORE 03/22/2020 33510-AUXSUXZ NAIL, 6 OR MORE 05/31/2020 53677-BHEYVOO NAIL, 6 OR MORE 08/09/2020 83369-YRUTGAW NAIL, 6 OR MORE 11/08/2020 53771-RDUKGGT NAIL, 6 OR MORE 01/17/2021 72047-SCDHARD NAIL, 6 OR MORE 04/04/2021 86217-JAXWEQQ NAIL, 6 OR MORE 06/13/2021 40116-HOINAST NAIL, 6 OR MORE 09/09/2021 25252-NZGSNBV NAIL, 6 OR MORE 11/18/2021 55804-YOAKGTP NAIL, 6 OR MORE 02/06/2022 85761-TJVNXVU NAIL, 6 OR MORE 04/24/2022 61030-JMTYZPA NAIL, 6 OR MORE 09/08/2022 45537-FYEDBMR NAIL, 6 OR MORE 11/13/2022 20757-PMIPIIY NAIL, 6 OR MORE 01/22/2023 98744-SRDYHPG NAIL, 6 OR MORE 04/23/2023 06320-AXGTMBR NAIL, 6 OR MORE 07/13/2023 90133-ANENZER NAIL, 6 OR MORE 10/15/2023 31235-TLMFEAN NAIL, 6 OR MORE 01/14/2024 28456-LPDODTO NAIL, 6 OR MORE 06/09/2024 96639-RUTNQDZ NAIL, 6 OR MORE 11/24/2024 35266-YCBQCLE NAIL, 6 OR MORE 03/02/2025 67257-QLVBGOH NAIL, 6 OR MORE 06/01/2025 69893-RKHGVDE NAIL, 6 OR MORE 09/11/2025 71378-DSUJPPW NAIL, 6 OR MORE 09/08/2024 73695-Tlgr Destruction, -14 09/08/2024 36151-Fqhi Destruction, -14 04/02/2017 89715-Irsz Destruction, -14 06/09/2024 54118-Uuet Destruction, -14 01/14/2024 41065-Aiaw Destruction, -14 10/15/2023 72486-Utsj Destruction, -14 07/13/2023 40244-Tibw Destruction, -14 04/23/2023 43383-Jimi Destruction, -14 01/22/2023 75480-Szbb Destruction, -14 11/13/2022 90456-Giof Destruction, -09/08/2022 94458-Msft Destruction, 11-0704/24/2022 27647-Djog Destruction, 11-0702/06/2022 16620-Jgqd Destruction, 11-0711/18/2021 90125-Vqdr Destruction, 11-0709/09/2021 05061-Favb Destruction, 11-0706/13/2021 32439-Nxmz Destruction, 11-0704/04/2021 59017-Jfam Destruction, 11-0701/17/2021 54166-Wahn Destruction, 11-0711/08/2020 13700-Wmlp Destruction, 11-0708/09/2020 83595-Fzbv Destruction, 11-0705/31/2020 05345-Seaq Destruction, 11-0703/22/2020 74039-Xhvb Destruction, 11-0712/15/2019 36578-Uwbb Destruction, 11-0710/03/2019 65339-Ipoq Destruction, 11-0708/01/2019 50869-Dtoy Destruction, 11-0705/16/2019 53710-Rzkj Destruction, 11-0703/07/2019 13575-Rwvz Destruction, 11-0712/16/2018 02459-Pomm Destruction, 11-0710/07/2018 78255-Ynqc Destruction, 11-0707/08/2018 32842-Qmzy Destruction, 11-0704/08/2018 47767-Rwmi Destruction, 11-0701/04/2018 68264-Snpv Destruction, 11-0709/24/2017 54585-Ihlr Destruction, 11-0706/25/2017 49592-Abig Destruction, 11-0704/19/2015 19842-Fmpk Destruction, 11-0710/11/2015 22815-Hmwi Destruction, 11-0707/09/2015 01506-Tdwy Destruction, 11-0702/15/2015 91164-Vptr Destruction, 11-0707/19/2012 43409-Aukv Destruction, 14 03/06/2014 56042-Qtnumwlb Plate 02/15/2015 49914-Cydsnrqh Plate 04/19/2015 27136-Nxqvcsci Plate 07/09/2015 55308-Ebsyyzih Plate 10/11/2015 21237-Yixlkfvj Plate 07/31/2016 18801-Kqqkidwi Plate 05/19/2016 67568-Hndihdwk Plate 03/22/2020 13295-Ttfvdrjj Plate Each Additional 93369-Pkvusxce Plate Each Additional 15650-Pbztizgq Plate Each Additional 25663-XIJG SKIN LESIONS, 2 TO 4 01/02/20- Ganglion Cyst Injection/Aspiratio n 02/15/2015- Ganglion Cyst Injection/Aspiratio n 03/06/2014 Next Appt Details Provider Name:Ryan Gann , 12/25/2025 09:00:00 AM, [address] [place], [address], Insurance Providers Payer Name Payer Address Payer Phone Subscriber Number Group Number Insured Name Patient Relationship to Insured Coverage Start Date Coverage End Date [employer] [place] [employer] [address] [place] [address] [id number] Hoa Aguialr Self - patient is the insured Medical (General) History Medical History History ICD Code Cholesterol high blood pressure measles chicken pox Surgical History Surgery Date(Month/Year) colonoscopy 01/05/2023 abscess Tooth 12/2021 2x root canal 2022 Hospitalization History Reason Date(Month/Year) [facility] 2x c diff sameday [facility] 09/2022
--- OUTSIDE RECORDS SUMMARY | 2025-10-16 07:48 | XMS_ITS | Patient Health Record ---
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 Name Role Phone Yamileth Khoury MD Primary Care Provider Bran Douglas Jr Unavailable Allergies Allergen (clinical drug ingredient) Drug/Non Drug Allergy documented on EMR Reaction Allergy Type Onset Date Status Sulfa Unknown Drug Allergy Active Reason For Referral No Information Medications Medication SIG (Take, Route, Frequency, Duration) Notes Start Date End Date Status Magnesium 250 MG Tablet 1 tablet with a meal Orally Once a day Active Vitamin D3 1000 UNIT Tablet 1 tablet Ora lly Once a day Active Simvastatin 20 MG Tablet 1 tablet in the evening Orally Once a day Active ZyrTEC Allergy 10 MG Tablet 1 tablet Ora lly Once a day; Duration: 30 day(s) Active Flonase Allergy Relief 50 MCG/ACT Suspension 1 spray in each nostril Nasally Once a day; Duration: 30 day(s) Active Famotidine 20 MG Tablet Oral; Duration: 90 Active MiraLax (colon prep) 17 GM/SCOOP Powder mixed with Gatorade or Crystal Light Orally begin at 5:00 p.m. the day before the procedure; Duration: 1 day 10/22/2022 Active Vancocin 125 MG Capsule as directed Oral ly 4 times daily; Duration: 10 days 02/26/2022 Active Olmesartan Medoxomil 20 MG Tablet 1 tablet Orally Once a day; Duration: 30 day(s) Active prednisoLONE Sodium Phosphate 1 % Solution 1 drop into affected eye Ophthalmic as directed Active Biotin 2500 MCG Capsule 1 capsule Orally Once a day Active Osteo Bi-Flex Triple Strength - Tablet as directed Orally QD A ctive Immunizations Vaccine Route Administration Date Status Comme nts Influenza Unknown 09/13/2018 Administered Influenza Unknown 06/25/2020 Administered Influenza Unknown 06/25/2021 Administered Social History Social History Additional Details Category Social Info Options Details Miscellaneous: Marital status: Occupation: retired Problems Problem Type SNOMED Code ICD Code Onset Dates Problem Status W/U Status Risk Notes Problem Colon cancer screening (093840375) Colon cancer screening (Z12.11) Active confirmed Problem Long-term current use of antiplatelet drug (453419338800288) Long-term use of aspirin therapy (Z79.82) Active confirmed Problem Abnormal CT scan , sigmoid colon (R93.3) Active confirmed Problem Diarrhea (89619079) Diarrhea, unspecified type (R19.7) Active confirmed Problem Irritable bowel syndrome (33420331) Irritable bowel syndrome with both constipation and diarrhea (K58.2) Active confirmed Problem Altered bowel function (15020704) Change in bowel function (R19.8) Active confirmed Problem Clostridioides difficile infection (146861708) Clostridioides difficile infection (A49.8) Active confirmed Plan Of Treatment Pending Test Test Name Order Date BUN 10/14/2022 CREATININE 10/14/2022 LIVER PROFILE 10/14/2022 LIPASE 10/14/2022 CBC w/o DIFF 10/14/2022 STOOL WBC 04/28/2022 STOOL WBC 02/25/2022 OVA & PARASITES (O&P) 02/25/2022 CT ABD & PELVIS WITH CONTRAST 10/14/2022 STOOL WBC 04/24/2022 C DIFFICILE RFLX PCR 04/24/2022 CDiff Gene PCR 02/25/2022 GI PANEL 04/24/2022 Future Test Test Name Order Date COLONOSCOPY 10/14/2012 COLONOSCOPY 11/11/2018 COLONOSCOPY 10/22/2022 Insurance Providers Payer Name Payer Address Payer Phone Subscriber Number Group Number Insured Name Patient Relationship to Insured Coverage Start Date Coverage End Date [facility] [address] [place] [phone] [id number] GIFTY BLACKMAN Self - patient is the [...]
[2025-10-16 08:08] VITALS: BP 126/80; PULSE 88; RESP 16; TEMP 36.9; O2SAT 100; BMI 24.8
--- NOTE | 2025-10-16 08:08 | A.OFFPC_ITS ---
Vital Signs 10/16/25 08:08 Height 5 ft 3 in Weight 140 lb BMI 24.8 BP 126/80 Blood Pressure Location Lt brachial Position Sitting Respiration 16 Pulse 88 Pulse Source Pulse Oximeter Temp 98.4 F Temp Source Oral Pulse Oximetry (%) 100 Oxygen Delivery Method Room Air Intake Visit Reasons: Annual PE Caregivers Non Medical Required: No Allergies Sulfa (Sulfonamide Antibiotics) (SULFA (SULFONAMIDE ANTIBIOTICS)) Allergy (Mild, Verified 06/23/25 11:09) RASH clindamycin Adverse Reaction (Intermediate, Verified 06/23/25 11:09) Diarrhea amlodipine Adverse Reaction (Unknown, Verified 06/23/25 11:09) edema ENVIRONMENTAL Allergy (Intermediate, Uncoded 06/23/25 10:15) ITCHY EYES/SINUS SULFA Allergy (Unknown, Uncoded 06/23/25 10:15) unknown Medication List - Last Reconciled 10/16/25 by Yamileth Khoury MD Bifidobacterium infantis (Align (B.infantis)) 4 mg PO DAILY biotin 2,500 mcg PO DAILY cetirizine (Zyrtec) 10 mg PO DAILY PRN cholecalciferol (vitamin D3) 25 mcg PO DAILY famotidine (Pepcid) 20 mg PO DAILY fluticasone furoate 27.5 mcg/actuation (Flonase Sensimist) 1 spray intranasal DAILY PRN [id number] 750 mg-644 mg- 30 mg-1 mg (Osteo Bi-Flex Triple Strength) 2 tabs PO DAILY magnesium 250 mg PO DAILY olmesartan 20 mg PO DAILY simvastatin 20 mg PO QPM Tobacco use date assessed: 10/16/25 Fall risk assessment: No Falls in past year Last assessed Fall Risk: 10/16/25 Dental Screening Dental Screen Date: 10/16/25 Did you have a dental visit in the last 12 months?: Yes Did you have a dental problem in the last 6 months where you did not have access to dental care?: No Was dental information given to patient?: Patient has dentist HPI Annual PE HPI Details Pt presents for PE. PFSH Medical History GERD (gastroesophageal reflux disease) Vitamin D deficiency Osteopenia Annual physical exam Postmenopausal Neutropenia Hyperlipidemia History of mammogram Syncope HTN (hypertension) Surgical History Status post corneal transplant S/P ELIZABETH-BSO H/O colonoscopy Family History Father Cancer Mother CHF (congestive heart failure) CVD (cardiovascular disease) Social History Housing: House Alcohol intake: current Alcohol intake frequency: holidays/special occasions only Alcohol type: wine and hard liquor Patient Tobacco Use Status: Never used Tobacco e-Cigarette/Vaping Use: Never Used service: No Current occupational status: retired Cognitive needs: No Hearing needs: No Vision needs: Yes Questionnaire Thrive Questionnaire Date Thrive assessed: 04/17/25 I am a: Patient What is your living situation today?: I have a steady place to live Within the past 12 months, did the food you bought not last and you didn't have the money to get more?: Never true Within the past 12 months, did you worry whether your food would run out before you got money to buy more?: Never true Do you have trouble paying for medicines?: No Do you have trouble getting transportation to medical appointments?: No Do you have trouble paying your heating and electricity bill?: No Do you have trouble taking care of your child, family member or friend?: No Do you have trouble with day-to-day activities such as bathing, preparing meals, shopping, managing finances, etc.?: No Are you currently unemployed and looking for a job?: No Are you interested in more education?: No Please select the resources that you would like help with: None Currently or been in a relationship where the following occur: No concerns reported THRIVE Score: 0 DEANGELO-7 AMB Questionnaire DEANGELO-7 Date DEANGELO - 7 assessed: 02/08/23 Source: Developed by Drs. Kareem Stinson, Ryann Morrison, Amanuel Ca and colleagues, with an educational zafar from [employer]. Review of Systems Const All systems reviewed & are unremarkable except as noted in HPI and below Eyes Reports no additional complaints ENT Reports no additional complaints Card Reports no additional complaints Resp Reports no additional complaints GI Reports no additional complaints Reports no additional complaints Physical exam (Primary Care) Vital Signs: Last Vital Signs Temp 98.4 F 10/16/25 08:08 Pulse 88 10/16/25 08:08 Resp 16 10/16/25 08:08 BP 126/80 10/16/25 08:08 Pulse Ox 100 10/16/25 08:08 Oxygen Delivery Method Room Air 10/16/25 08:08 BMI result Body Mass Index 24.8 Tobacco/Smoking Status: Tobacco use Status Tobacco use date assessed 10/16/25 10/16/25 08:14 Patient Tobacco Use Status Never used Tobacco 10/16/25 08:09 e-Cigarette/Vaping Use Never Used 10/16/25 08:09 Thrive Assessment: Date of Thrive Assessment Date Thrive assessed 04/17/25 10/16/25 08:09 Currently or been in a relationship where the following occur: No concerns reported Const General: no acute distress HENMT Head: Yes normal to inspection Face and sinus: Yes normal facial exam Throat: Yes posterior oropharynx normal Resp Effort & Inspection: normal respiratory effort Auscultation: clear to auscultation bilaterally Cardio Rhythm: regular rhythm Heart sounds: S1 normal heart sound present and S2 normal heart sound present GI Inspection: Yes normal to inspection Palpation (GI): Soft to palpation Percussion: Yes normal to percussion Auscultation: normal bowel sounds Coding Level of Care Code Est Pt Prev Care >65y(92760) Diagnoses Essential (primary) hypertension I10 Hyperlipidemia E78.5 Neutropenia D70.9 Annual physical exam Z00.00 Assessment & Plan Assessment & Plan (1) Essential (primary) hypertension: Code(s): I10 - Essential (primary) hypertension Category: Medical Plan: Continue medications (2) Hyperlipidemia: Code(s): E78.5 - Hyperlipidemia, unspecified Category: Medical Plan: Continue statin (3) Neutropenia: Comment: mild, chronic Code(s): D70.9 - Neutropenia, unspecified Category: Medical Plan: Monitor CBC (4) Annual physical exam: Code(s): Z00.00 - Encounter for general adult medical examination without abnormal findings Category: Medical Plan: Well-balanced diet regular physical activity discussed with the patient. She is up-to-date with the mammogram. Patient will return in 1 year for physical with a fasting labs before Orders: Orders Complete Blood Count Auto Diff 1 Year D70.9 - Neutropenia, unspecified, E55.9 - Vitamin D deficiency, unspecified, E78.5 - Hyperlipidemia, unspecified, I10 - Essential (primary) hypertension Lipid Panel 1 Year D70.9 - Neutropenia, unspecified, E55.9 - Vitamin D deficiency, unspecified, E78.5 - Hyperlipidemia, unspecified, I10 - Essential (primary) hypertension Vitamin D 25-OH Total 1 Year D70.9 - Neutropenia, unspecified, E55.9 - Vitamin D deficiency, unspecified, E78.5 - Hyperlipidemia, unspecified, I10 - Essential (primary) hypertension Comprehensive [place]. Panel Fast 1 Year D70.9 - Neutropenia, unspecified, E55.9 - Vitamin D deficiency, unspecified, E78.5 - Hyperlipidemia, unspecified, I10 - Essential (primary) hypertension
== END 2025-10-16 09:08 | disposition home or self-care (01) ==
LOC: HO.HMCC 07:46
PROVIDERS: PCP Internal Medicine; Visit Provider Internal Medicine
DX: I10 Essential (primary) hypertension (principal); E78.5 Hyperlipidemia, unspecified; D70.9 Neutropenia, unspecified; Z00.00 Encounter for general adult medical examination without abnormal findings

== ENCOUNTER → 2025-10-16 07:45 | Outpatient (BNVA) | payer MEDICARE, SELFPAY | PROVIDERS: PCP Internal Medicine; Visit Provider Internal Medicine | DX: Z00.00 Encounter for general adult medical examination without abnormal findings (principal); I10 Essential (primary) hypertension; D70.9 Neutropenia, unspecified; E78.5 Hyperlipidemia, unspecified | CPT/HCPCS: 99397 ==